=== PATIENT | male | born 1985 | race Caucasian/White ===

== ENCOUNTER 2019-12-17 11:21 | Outpatient (REF) | payer MEDICARE, SELFPAY ==
[2019-12-17 13:45] LABS: Glucose Urine UA NEG (NEG); Leukocyte Esterase Urine NEG (NEG); Nitrite Urine NEG (NEG); Urine Blood TRACE (NEG); Urine Ketones NEG (NEG); Urine Protein NEG (NEG-TRACE)
[2019-12-17 13:50] LABS: Appearance Urine CLEAR; Color Urine STRAW
[2019-12-17 14:15] LABS: RBC Urine 0-2 /HPF (0); WBC Urine 0 /HPF (0-4)
== END 2019-12-17 11:22 | disposition home or self-care (01) ==
LOC: HO.10HDL 11:21
PROVIDERS: Visit Provider Internal Medicine Medical Oncology
DX: R39.9 Unspecified symptoms and signs involving the genitourinary system (principal)
CPT/HCPCS: 81001; 87086

== ENCOUNTER 2020-04-19 11:28 | Outpatient (REF) | payer MEDICARE, MEDICAID, SELFPAY ==
[2020-04-19 14:40] LABS: MANUAL DIFF FLAG NO
[2020-04-19 14:45] LABS: Basophils Percent Auto 0.4 % (0-2); Eosinophils Absolute Auto 0.1 X10*3/uL (0.0-0.4); Eosinophils Percent Auto 0.9 % (0-4); Hematocrit 42.8 % (42-52); Hemoglobin 14.3 g/dl (14.0-18.0); Imm Gran Abs Auto 0.02 X10*3/uL (0.00-0.03); Imm Gran Pct Auto 0.3 % (0.0-0.4); Lymphocytes Absolute Auto 2.6 X10*3/uL (1.2-4.9); Lymphocytes Percent Auto 36.6 % (20-40); Mean Corpuscular HGB Conc 33.4 g/dl (31.0-36.0); Mean Corpuscular Volume 83.8 fL (80-98); Mean Platelet Volume 11.7 fL (9.4-12.4); Monocytes Absolute Auto 0.5 X10*3/uL (0.1-1.2); Monocytes Percent Auto 7.5 % (2-11); Neutrophils Absolute Auto 3.8 X10*3/uL (2.0-8.3); Neutrophils Percent Auto 54.3 % (45-73); Platelet Count 301 X10*3/uL (160-400); Red Blood Count 5.11 X10*6/uL (4.60-5.80); Red Cell Distribution Width 11.9 % (11.0-16.0); White Blood Count 7.1 X10*3/uL (4.8-10.8)
[2020-04-19 15:12] LABS: Alanine Aminotransferase 25 U/L (0-40); Albumin Level 4.8 g/dL (3.5-5.0); Alkaline Phosphatase 64 U/L (39-117); Anion Gap 16 (12-20); Aspartate Amino Transferase 20 U/L (5-37); Bilirubin Total 0.7 mg/dL (0.0-1.0); Blood Urea Nitrogen 11 mg/dL (9-16); Calcium 9.7 mg/dL (8.4-10.2); Carbon Dioxide 24 mmol/L (22-29); Chloride 102 mmol/L (96-108); Cholesterol 172 mg/dL; Estimated Glomerular Filt Rate > 60; Glucose Random 84 mg/dL (60-115); HDL Cholesterol 36 mg/dL; LDL Cholesterol Calculated 101 mg/dl; Potassium 4.3 mmol/L (3.3-5.1); Sodium 138 mmol/L (135-145); Total Protein 7.4 g/dL (6.5-8.0); Triglycerides 178 mg/dL
== END 2020-04-19 11:29 | disposition home or self-care (01) ==
LOC: HO.10HDL 11:28
PROVIDERS: Visit Provider Internal Medicine Medical Oncology
DX: F84.5 Asperger's syndrome (principal); E66.9 Obesity, unspecified; J45.909 Unspecified asthma, uncomplicated
CPT/HCPCS: 36415; 80053; 80061; 85025

== ENCOUNTER 2021-09-04 11:12 | Outpatient (REF) | payer MEDICARE, MEDICAID, SELFPAY ==
[2021-09-04 13:48] LABS: MANUAL DIFF FLAG NO
[2021-09-04 13:58] LABS: Basophils Percent Auto 0.2 % (0-2); Eosinophils Absolute Auto 0.1 X10*3/uL (0.0-0.4); Eosinophils Percent Auto 0.9 % (0-4); Hematocrit 40.8 % (42.0-52.0); Hemoglobin 13.5 g/dl (14.0-18.0); Imm Gran Abs Auto 0.03 X10*3/uL (0.00-0.03); Imm Gran Pct Auto 0.5 % (0.0-0.4); Lymphocytes Absolute Auto 2.2 X10*3/uL (1.2-4.9); Lymphocytes Percent Auto 38.9 % (20-40); Mean Corpuscular HGB Conc 33.1 g/dl (31.0-36.0); Mean Corpuscular Volume 84.5 fL (80.0-98.0); Mean Platelet Volume 11.3 fL (9.4-12.4); Monocytes Absolute Auto 0.6 X10*3/uL (0.1-1.2); Monocytes Percent Auto 9.9 % (2-11); Neutrophils Absolute Auto 2.8 x10*3/uL (2.0-8.3); Neutrophils Percent Auto 49.6 % (45-73); Platelet Count 262 X10*3/uL (160-400); Red Blood Count 4.83 X10*6/uL (4.60-5.80); Red Cell Distribution Width 12.3 % (11.0-16.0); White Blood Count 5.7 X10*3/uL (4.8-10.8)
[2021-09-04 14:11] LABS: Cholesterol 184 mg/dL; HDL Cholesterol 36 mg/dL; LDL Cholesterol Calculated 116 mg/dl; Triglycerides 164 mg/dL
== END 2021-09-04 11:13 | disposition home or self-care (01) ==
LOC: HO.10HDL 11:12
PROVIDERS: Visit Provider Internal Medicine Medical Oncology
DX: E55.9 Vitamin D deficiency, unspecified (principal)
CPT/HCPCS: 36415; 80061; 85025

== ENCOUNTER 2023-10-08 08:58 | Outpatient (REF) | payer MEDICARE, MEDICAID, SELFPAY ==
--- NOTE | ~2023-10-08 | XR_ITS ---
EXAMINATION: XR FOOT, LEFT CLINICAL INFORMATION: Left foot pain COMPARISON: None available. TECHNIQUE: AP, lateral, and oblique views of the left foot. FINDINGS: The toes are upgoing. Calcaneal spurring. Mild chronic appearing deformity medial aspect of the fifth distal metatarsal. No fracture or dislocation. XR/XR foot LT min 3V IMPRESSION: No acute bony pathology.
== END 2023-10-08 08:59 | disposition home or self-care (01) ==
LOC: HO.XRAY 08:58
PROVIDERS: PCP Internal Medicine Medical Oncology; Visit Provider Internal Medicine Medical Oncology
DX: M79.672 Pain in left foot (principal)
CPT/HCPCS: 73630

== ENCOUNTER 2024-03-10 08:54 | Outpatient (REF) | payer MEDICARE, MEDICAID, SELFPAY ==
[2024-03-10 09:18] LABS: MANUAL DIFF FLAG NO
--- OUTSIDE RECORDS SUMMARY | 2024-03-10 09:26 | XMS_ITS ---
Author Organization Abhijit Gilomre III, MD Address [address] [place] [address] Care Team Providers Care Commanding Officer Motorized Squad Name Role Phone Abhijit Gilmore Primary Care Provider REASON FOR VISIT PT 1 Social History Sex Assigned At : Social History Observation Description Sex Assigned At Male Encounters Encounter Location Date Provider Diagnosis Abhijit Gilmore III, MD [address] [place] [address] [place] [address] 02/28/2024 Abhijit Gilmore Plan Of Treatment Next Appt Details Provider Name:Abhijit Gilmore, 03/13/2024 10:00:00 AM, [address] [place] [address] [place], [address], Provider Name:Abhijit Gilmore, 04/23/2024 11:00:00 AM, [address] [facility] [place], [address], Provider Name:Abhijit Gilmore, 06/23/2024 02:30:00 PM, [address] [facility] [place], [address], Progress Notes * Jadiel BRYANT JrDOB:[birth year] (38 yo M)Acc No.[id number]:02/28/2024 Patient:?BRYANT, Jadiel morrison :1985???Age:38 Y???Sex:Male Address:[address] [place] [address] * true * Date:? Generated for Janice brown/Wild/Addissmitting on:?03/10/2024 09:26 AM EST
--- OUTSIDE RECORDS SUMMARY | 2024-03-10 09:26 | XMS_ITS ---
Author Organization Abhijit Gilmore III, MD Address [address] [place] [address] [place] [address] Care Team Providers Care Cleaner Housekeeping Name Role Phone Abhijit Gilmore Primary Care Provider [phone] Allergies Allergen (clinical drug ingredient) Drug/Non Drug Allergy documented on EMR Reaction Allergy Type Onset Date Status Penicillin Unknown Drug Allergy Active REASON FOR VISIT Daytime somnolence, Chronic fatigue, History of asthma, Obesity, Enuresis Medications Medication SIG (Take, Route, Fr equency, Duration) Notes Start Date End Date Status clonazePAM 0.5 MG 1 tablet Orally Once a day Active Social History Tobacco Use: Social History Observation Description Date Details (start date - stop date) Never Smoker NA - NA Sex Assigned At : Social History Observation Description Sex Assigned At Male Tobacco Use/Smoking Question Answer Notes Patient is a nonsmoker Additional Findings: Tobacco Non-User Aggressive non-smoker Problems Problem Type SNOMED Code ICD Code Onset Dates Problem Status W/U Status Risk Notes Problem Fatigue (81638966) Fatigue (R53.83) Active confirmed He reports daytime fatigue and somnolence and says he has difficulty sleeping. He says he has been told he snores excessively. I have ordered a sleep study to see if he has sleepp apnea. Vital Signs Height 67 in 02/28/2024 Weight 251 lbs 02/28/2024 BMI 39.31 kg/m2 02/28/2024 Encounters Encounter Location Date Provider Diagnosis Abhijit Gilmore III, MD [address] [place] [address] [address] [place], [place] [address] 02/28/2024 Abhijit Gilmore Obesity E66.9 ; Fatigue R53.83 ; Asperger syndrome F84.5 ; Asthma J45.909 ; Unspecified tinnitus H93.19 and Enuresis R32 Assessments Encounter Date Diagnosis (ICD Code) Assessment Notes Treatment Notes Treatment Clinical Notes 02/28/2024 Obesity (ICD-10 - E66.9) His weight has been stable at 251 pounds. His body mass index is 39.3. We discussed his weight and diet today. We reviewed his weight loss strategy and made a plan to lose weight at a rate of 1 pound per week. Follow-up visit was arranged. I have begun to discuss GLP-1 drugs with him. 02/28/2024 Fatigue (ICD-10 - R53.83) He reports daytime fatigue and somnolence and says he has difficulty sleeping. He says he has been told he snores excessively. I have ordered a sleep study to see if he has sleepp apnea. 02/28/2024 Asperger syndrome (ICD-10 - F84.5) He is functioning well and no change in his regimen as necessary. He was continued on his medications. He continues to complete all of the activities of daily living without impairment. 02/28/2024 Asthma (ICD-10 - J45.909) He had no wheezing today and was comfortable breathing room air.Once he has set of wheezing. 02/28/2024 Unspecified tinnitus (ICD-10 - H93.19) The tinnitus has resolved. 02/28/2024 Enuresis (ICD-10 - R32) He has no history of this in the past. I referred him to urology for evaluation. Plan Of Treatment Medication Medication Name Sig Start Date Stop Date Notes clonazePAM 0.5 MG 1 tablet Orally Once a day Pending Test Test Name Order Date PROFILE, FASTING (COMPREHENSIVE METABOLI C) 02/28/2024 PSA, TOTAL 02/28/2024 SED RATE (ESR) 02/28/2024 CBC WITH AUTO DIFF 02/28/2024 Lipid Panel 02/28/2024 Next Appt Details Follow Up: 2 Weeks, Reason: OV Provider Name:Abhijit Gilmore, 03/13/2024 10:00:00 AM, [address] [facility] [place], [place], [address], Provider Name:Abhijit Chawlarne, 04/23/2024 11:00:00 AM, [address] [facility] [place], [place], [address], Provider Name:Abhijit Gilmore, 06/23/2024 02:30:00 PM, [address] [facility] [place], [place], [address], Progress Notes * Jadiel BRYANT JrDOB:[birth year] (38 yo M)Acc No.[id number]:02/28/2024 Patient:?Jadiel BRYANT Provider:?Abhijit Gilmore MD :1985???Age:38 Y???Sex:Male David e:02/28/2024 Address:[address] [place] [address] Subjective: * Chief Complaints: * ???Daytime somnolenceChronic fatigueHistory of asthmaObesityEnuresis * HPI: ???:?Telehealth?Location of provider rendering services:?{...} [address] [facility] [address] ?Location of patient:?address listed in demographics for today's visit ?Patient identification confirmed using:?Name, ?Telehealth method:?Telephone only. Patient not visible to care provider. ?Consent:?Patient verbally consented to treatment, Patient verbally consented to billing insurance company, Patient informed of any privacy concerns related to method of visit ?Total time spent with patient (mins)?15 ?This telehealth visit took place over 15 minutes with the patient at home and me in my office.? He gave consent for billing. The patient, a 38-year-old male, has been experiencing fatigue and a general feeling of being unwell. He reports feeling excessively tired during the day, to the point where he struggles to keep his eyes open. Despite getting adequate sleep at night, he feels as though he can't get enough rest. He also mentions a problem with urinary leakage, for which he is awaiting a consultation with a urologist. The patient denies having a fever or a sore throat. He has been consuming herbal tea at night, which he believes boosts his immunity. The patient is unsure of the cause of his symptoms, suggesting it might be due to the fatigue of everything. He is currently on clonazepam, half a tablet twice a day, as prescribed by his medication provider, Dr. Aiden Jolley from [facility]. I suggested he redduce the dose of clonazepam for week and then report back to me and Dr. Jolley.? Blood work was ordered.? I have ordered a sleep study to see if he has sleep apnea. * ROS:?General/Constitutional:?pain?only normal aches and pains.?Chills?denies.?Fatigue?admits.?Denies?Fever,?denies.?ENT:?Decreased hearing?denies.?Denies?Sore throat.?Respiratory:?Cough?denies.?Cardiovascular:?Chest pain with exertion?denies.?Dyspnea on exertion?denies.?Shortness of breath?denies.?Gastrointestinal:?Constipation?occasional.?Decreased appetite?denies.?Diarrhea?denies.?Heartburn?denies.?Nausea?denies.?Rectal bleeding?denies.?Vomiting?denies.?Hematology:?bruising?denies.?petechiae?denies.?Swollen glands?none have been noted.?Genitourinary:?Frequent urination?Complains of enuresis.?Musculoskeletal:?Muscle aches?denies.?Painful joints?denies.?Sciatica?denies.?Weakness?denies.?Skin:?Itching?denies.?Rash?denies.?Skin lesion(s)?denies.?Neurologic:?Difficulty speaking?denies.?Dizziness?denies.?Headache?denies.?Low back pain?denies.?Psychiatric:?Depressed mood?which is mild.? * Medical History:? * Surgical History:?Colonoscop y, Endoscopy at [facility] [id number] tooth extracted 2013No history * Hospitalization/Major Diagno stic Procedure:?No history * Family History:?Father: nisa e 64 yrs, Hypertension, hyperlipidemia, obesity, BPH, emphysema, atrial fibrillation.?Mother: alive 61 yrs, Diabetes mellitus, depression, hyperlipidemia, obesity, asthma, and hearing loss.?Siblings: alive, crohns disease.?Maternal Grand Mother: colon cancer.?Maternal aunt: alive, colon cancer.?Maternal Grand Father: diagnosed with DM.?1 brother(s) , 1 sister(s) - healthy. .? His brother, Chalino, has Crohn's disease. His sister Makayla has a bipolar disorder. He has no children and is unmarried. He has a personal history of Asperger's syndrome. He is not aware of any other family history of mental illness, substance use disorder or injection. Prostate cancer. * Social History:?Tobacco Use:?Tobacco Use/Smoking?Patient is a?nonsmoker ?Additional Findings: Tobacco Non-User?Aggressive non-smoker ???He is disabled from Aspercreme syndrome. He is unemployed, single and has no children. He gives no history of any toxic exposures. He neither drinks nor smokes. 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 He also mentioned that he has been trying to manage his weight by reducing his food portions. * Medications:?TakingclonazePA M 0.5 MG Tablet 1 tablet Orally Once a day Medication List reviewed and reconciled with the patientTaking clonazePAM 0.5 MG Tablet 1 tablet Orally Once a day Medication List reviewed and reconciled with the patient * Allergies:?Penicillinno[Van rgies Verified] Objective: * Vitals:?Ht: 67, Wt: 251, BMI :39.31, Ht-cm: 170.18, Wt-k.85. Assessment: * Assessment: 1.?Obesity - E66.9 (Primary) ???Notes :His weight has been stable at 251 pounds.? His body mass index is 39.3.? We discussed his weight and diet today.? We reviewed his weight loss strategy and made a plan to lose weight at a rate of 1 pound per week.? Follow-up visit was arranged.? I have begun to discuss GLP-1 drugs with him.???2.?Fatigue - R53.83???Notes :He reports daytime fatigue and somnolence and says he has difficulty sleeping.? He says he has been told he snores excessively.? I have ordered a sleep study to see if he has sleepp apnea.???3.?Asperger syndrome - F84.5???Notes :He is functioning well and no change in his regimen as necessary. He was continued on his medications. He continues to complete all of the activities of daily living without impairment.???4.?Asthma - J45.909???Notes :He had no wheezing today and was comfortable breathing room air.Once he has set of wheezing.???5.?Unspecified tinnitus - H93.19???Notes :The tinnitus has resolved.???6.?Enuresis - R32???Notes :He has no history of this in the past. I referred him to urology for evaluation.??? Plan: * Treatment: 2.?Fatigue?LAB: PROFILE, FASTING (COMPREHENSIVE METABOLIC) ?LAB: PSA, TOTAL ?LAB: SED RATE (ESR) ?LAB: CBC WITH AUTO DIFF ?LAB: Lipid Panel 3.?Others? Continue clonazePAM Tablet, 0.5 MG, 1 tablet, Orally, Once a day.?? * Procedure Codes:?37512 PHONE E/M BY MARGE 11-20 MIN * Preventive Medicine:? ??Counseling:?Care goal follow-up plan:?Counseling for abnormal BMI given?Yes ?Above Normal BMI Follow-up?Dietary management education, guidance, and counseling, Dietary needs education, Exercise promotion: strength training, Exercise promotion: stretching, Feeding regime, Giving encouragement to exercise, Lifestyle education regarding diet, Nutrition / feeding management, Nutrition therapy, Prescribed activity/exercise education, Prescribed diet education, Prescribed dietary intake, Special diet education, Weight monitoring , Intervention, Order not done: Medical or Other reason not done * Follow Up:?2 Weeks (Reason: OV) * Images: * Sign off status: Completed true * Provider:?Abhijit Gilmore MD Date:?04/2024 Generated for Janice brown/Wild/eTransmitting on:?03/10/2024 09:26 AM EST History and Physical Notes * HPI (History of Present Illness) Category Sub-Category Detail Notes Telehealth Location of [facility] services:: {...} [address] [place] [id number] Location of patient:: address listed in demographics for today's visit Patient identification confirmed using:: Name, Telehealth method:: Telephone only. Radha ent not visible to care provider. Consent:: Patient verbally c onsented to treatment, Patient verbally consented to billing insurance company, Patient informed of any privacy concerns related to method of visit Total time spent with patient (mins): 15
--- OUTSIDE RECORDS SUMMARY | 2024-03-10 09:27 | XMS_ITS ---
Author Organization Abhijit Gilmore III, MD Address [address] [place] [address] Care Team Providers Care Fisher Diver Net Name Role Phone Abhijit Gilmore Primary Care Provider Allergies Allergen (clinical drug ingredient) Drug/Non Drug Allergy documented on EMR Reaction Allergy Type Onset Date Status Penicillin Unknown Drug Allergy Active REASON FOR VISIT Asperger's syndrome, Obesity, Tinnitus, Asthma Medications Medication SIG (Take, Route, Fr equency, [...] nonsmoker Additional Findings: Tobacco Non-User Aggressive non-smoker Vital Signs Temperature 97.7 degrees Fahrenheit 01/22/20 24 Blood pressure systolic 133 mm Hg 01/22/20 24 Blood pressure diastolic 86 mm Hg 024 Heart Rate 90 /min 01/22/2024 Height 67 in 01/22/2024 Weight 251 lbs 01/22/2024 BMI 39.31 kg/m2 01/22/2024 Encounters Encounter Location Date Provider Diagnosis Abhijit Gilmore III, MD [address] [place] [address] [place] [address] 01/22/2024 Abhijit Gilmore Obesity (BMI 30.0-34.9) E66.9 ; Asthma J45.909 ; Asperger syndrome F84.5 and Irritable bowel syndrome K58.9 Assessments Encounter Date Diagnosis (ICD Code) Assessment Notes Treatment Notes Treatment Clinical Notes 01/22/2024 Obesity (BMI 30.0-34.9) (ICD-10 - E66.9) His weigght has been stable at 251 pounds with a body mass index of 39.3. We have discussed weight reduction strategies at length. I recommended weight loss at a rate of one half of a pound per week. 01/22/2024 Asthma (ICD-10 - J45.909) He had no wheezing today and was comfortable breathing room air. 01/22/2024 Asperger syndrome (ICD-10 - F84.5) He is functioning well and no change in his regimen as necessary. He was continued on his medications. He continues to complete all of the activities of daily living without impairment. 01/22/2024 Irritable bowel syndrome (ICD-10 - K58.9) It is likely the right lower quadrant pain was from the orbital bowel syndrome. Examination today was normal and a recent CT scan of the abdomen showed no abnormalities. Plan Of Treatment Medication Medication Name Sig Start Date Stop Date Notes clonazePAM 0.5 MG 1 tablet Orally Once a day Pending Test Test Name Order Date PROFILE, FASTING (COMPREHENSIVE METABOLI C) 01/22/2024 PSA, TOTAL 01/22/2024 CBC WITH AUTO DIFF 01/22/2024 Lipid Panel 01/22/2024 Next Appt Details Follow Up: 3 M, In three mon ths, Reason: OV, To do some blood work Provider Name:Abhijit Gilmore, 03/13/2024 10:00:00 AM, [address] [place] [address] [address], [place], [address], Provider Name:Abhijit Gilmore, 04/23/2024 11:00:00 AM, [address] [place] [address] [address], [place], [address], Provider Name:Abhijit Gilmore, 06/23/2024 02:30:00 PM, [address] [place] [address] [address], [place], [address], Progress Notes * BRYANTJadiel KNIGHT JrDOB:[birth year] (38 yo M)Acc No.[id number]:01/22/2024 Progress Notes Patient:?BRYANTJadiel KNIGHT Provider:?Abhijit Gilmore MD :1985???Age:38 Y???Sex:Male David e:01/22/2024 Address:[address] [place] [address] Subjective: * Chief Complaints: * ???Asperger's syndromeObesit yTinnitusAsthma * HPI: ???COVID-19 Screening:?Questions?Have you experienced fever, chills, cough, sore throat, shortness of breath, difficulty breathing, muscle aches, loss of taste or smell??No ?Have you been exposed to the virus within the last 10 days??No ?Have you travelled internationally in the last 10 days??No ?Have you been exposed to COVID-19 in the past??Yes ???:?The patient, a 38-year-old male, reported experiencing episodes of difficulty breathing, particularly at night. These episodes are characterized by a sensation of being unable to inhale properly, which typically lasts until the patient sits upright and opens a window for fresh air. The patient noted that these episodes often occur when the environment is stuffy or after consuming a heavy meal before bedtime. Accompanying these episodes is the presence of acid reflux, which the patient described as the body's natural response to clear the perceived blockage. The patient also mentioned experiencing occasional pain in the lower abdominal region.He has had no attacks of asthma per se.? His pulmonary examination today was unremarkable.? He seems to be doing well.? Current therapy was continued without change.? Close follow up was initiated. * ROS:?General/Constitutional:?pain?only normal aches and pains.?Chills?denies.?Fatigue?admits.?Fever?denies.?ENT:?Decreased hearing?mild.?Respiratory:?Cough?denies.?Cardiovascular:?Chest pain with exertion?denies.?Dyspnea on exertion?denies.?Shortness of breath?Occasional gasping for breath at night which quickly resolves.?Gastrointestinal:?Constipation?occasional.?Decreased appetite?denies.?Diarrhea?denies.?Heartburn?denies.?Nausea?denies.?Rectal bleeding?denies.?Vomiting?denies.?Hematology:?bruising?denies.?petechiae?denies.?Swollen glands?none have been noted.?Genitourinary:?Frequent urination?denies.?Musculoskeletal:?Muscle aches?denies.?Painful joints?denies.?Sciatica?denies.?Weakness?denies.?Skin:?Itching?denies.?Rash?denies.?Skin lesion(s)?denies.?Neurologic:?Difficulty speaking?denies.?Dizziness?denies.?Headache?denies.?Low back pain?denies.?Psychiatric:?Depressed mood?denies.? * Medical History:? * Surgical History:?Colonoscop y, Endoscopy at [facility] [id number] tooth extracted 2013No history * Hospitalization/Major Diagno stic Procedure:?No history * Family History:?Father: aliv e 64 yrs, Hypertension, hyperlipidemia, obesity, BPH, [...] * Vitals:?Ht: 67, Wt: 251, BMI :39.31, BP: 133/86, HR: 90, Temp: 97.7, Ht-cm: 170.18, Wt-k.85. * Examination: ???General Examination: ?GENERAL APPEARANCE:?pleasant, well nourished, well developed, in no acute distress, calm and relaxed, obese, man.?HEAD:?atraumatic, normocephalic.?EYES:?eomi, perrla, anicteric, conjugate.?EARS:?normal.?NOSE:?septum intact.?ORAL CAVITY:?normal, unremarkable.?NECK/THYROID:?no jugular venous distention, no carotid bruit, thyroid normal.?LYMPH NODES:?no enlarged lymph nodes,spleen normal.?SKIN:?no suspicious lesions, anicteric, Numerous patches of eczema.?HEART:?no clicks, gallops, murmurs, or rubs, regular rhythm, S1, S2 normal, no s3, or vascular bruits.?LUNGS:?clear to auscultation .?BREASTS:??no masses palpable bilaterally.?ABDOMEN:?bowel sounds normal, no ascites, no organomegaly, no mass, centripital obesity.?RECTAL EXAM:?not examined.?MUSCULOSKELETAL:?extremities unremarkable, no clubbing, cyanosis or edema.?PERIPHERAL PULSES:?normal.?NEUROLOGIC:?alert and oriented, cranial nerves 2-12 grossly intact, deep tendon reflexes 2+ symmetrical, motor strength normal upper and lower extremities, sensory exam intact.?PSYCH:?alert, oriented.? Assessment: * Assessment: 1.?Obesity (BMI 30.0-34.9) - E66.9 (Primary)???Notes :His weigght has been stable at 251 pounds with a body mass index of 39.3.? We have discussed weight reduction strategies at length.? I recommended weight loss at a rate of one half of a pound per week.???2.?Asthma - J45.909???Notes :He had no wheezing today and was comfortable breathing room air.???3.?Asperger syndrome - F84.5???Notes :He is functioning well and no change in his regimen as necessary. He was continued on his medications. He continues to complete all of the activities of daily living without impairment.???4.?Irritable bowel syndrome - K58.9???Notes :It is likely the right lower quadrant pain was from the orbital bowel syndrome. Examination today was normal and a recent CT scan of the abdomen showed no abnormalities.??? Plan: * Treatment: 2.?Others? Continue clonazePAM Tablet, 0.5 MG, 1 tablet, Orally, Once a day.?? * Procedure Codes:? * Preventive Medicine:? ??Counseling:?Care goal follow-up plan:?Counseling [...] or Other reason not done * Follow Up:?3 M, In three mon s (Reason: OV, To do some blood work) * Images: * Sign off status: Completed true * Provider:?Abhijit Gilmore MD Date:?12/27 Generated for Printi ng/Fashivanig/eTransmitting on:?03/10/2024 09:26 AM EST History and Physical Notes * HPI (History of Present Illness) Category Sub-Category Detail Notes COVID-19 Screening Questions Have you had any new onset fever, chills, cough, congestion, sore throat, shortness of breath, muscle aches?: No Have you been exposed to the virus withi n the last 10 days?: No Have you travelled internationally in e last 10 days?: No Have you been exposed to COVID-19 in the past?: Yes Examination Category Sub-Category Detail Notes General Examination GENERAL APPEARANCE: pleasant , well nourished, well developed, in no acute distress, calm and relaxed, obese, man HEAD: atraumatic, normocep halic EYES: eomi, perrla, anicte mattie, conjugate EARS: normal NOSE: septum intact NECK/THYROID: no jugular venous di stention, no carotid bruit, thyroid normal HEART: no clicks, gallops, murmurs, or rubs, regular rhythm, S1, S2 normal, no s3, or vascular bruits LUNGS: clear to auscultatio n ABDOMEN: bowel sounds normal, no ascites, no organomegaly, no mass, centripital obesity NEUROLOGIC: alert and oriented, cranial nerves 2-12 grossly intact, deep tendon reflexes 2+ symmetrical, motor strength normal upper and lower extremities, sensory exam intact SKIN: no suspicious lesion s, anicteric, Numerous patches of eczema PERIPHERAL PULSES: normal BREASTS: no masses palpable b ilaterally MUSCULOSKELETAL: extremities unremark able, no clubbing, cyanosis or edema LYMPH NODES: no enlarged lymph no bibi,spleen normal RECTAL EXAM: not examined PSYCH: alert, oriented ORAL CAVITY: normal, unremarkable
--- OUTSIDE RECORDS SUMMARY | 2024-03-10 09:27 | XMS_ITS | Patient Health Record ---
Author Organization Abhijit Gilmore III, MD Address [address] [place] [address] [place] [address] Care Team Providers Care Weapons Specialist Name Role Phone Abhijit Gilmore Primary Care Provider [phone] Allergies Allergen (clinical drug ingredient) Drug/Non Drug Allergy documented on EMR Reaction Allergy Type Onset Date Status Penicillin Unknown Drug Allergy Active Results Component Value Reference Range Notes XR foot LT min 3V Reviewed date:10/13/2023 06:43:09 AM Interpretation: Performing Lab: Notes/Report: [address] [address] XRay Report Signed Patient: Jadiel Bryant MR#: [id number] 1542 : 1985 Acct:[id number] Age/Sex: 37 / M ADM Date: 10/08/23 Loc: [facility] Attending Dr: Abhijit Gilmore MD Ordering Physician: Abhijit Gilmore MD Date of Service: 10/08/23 Procedure(s): XR foot LT min 3V Accession Number(s): [id number] cc: Abhijit Gilmore MD EXAMINATION: XR FOOT, LEFT CLINICAL INFORMATION: Left foot pain COMPARISON: None available. TECHNIQUE: AP, lateral, and oblique views of the left foot. FINDINGS: The toes are upgoing. Calcaneal spurring. Mild chronic appearing deformity medial aspect of the fifth distal metatarsal. No fracture or dislocation. XR/XR foot LT min 3V IMPRESSION: No acute bony pathology. 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 TECHNIQUE: AP, lateral, and obl ique views of the left foot. FINDINGS: The toes are upgoing . Calcaneal spurring. Mild chronic appearing deformity medial asp ect of the fifth distal metatarsal. No fracture or dislocation. X R/XR foot LT min 3V IMPRESSION: No acute bony pathology. 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: Reason For Referral Reason Consult and Treat Dysuria for 2 weeks Diagnosis 1 Dysuria (R30.0) Diagnosis 2 Enuresis (R32) Referral Organization Abhijit Gilmore III, MD Referring Provider First Name Abhijit Referring Provider Last Name Deirdre Referring Provider Speciality Internal M edicine Referred Provider [facility] er, Urology Referred Provider Specialty Urology General Notes Doris Laughlin 12/01 11:08:38 AM > referral faxed with telephone encounter Referral Priority Routine Referral Appointment Date 03/19/2024 Medications Medication SIG (Take, Route, Fr equency, Duration) Notes Start Date End Date Status clonazePAM 0.5 MG 1 tablet Orally Once a day Active Immunizations Vaccine Route Administration Date Status Comme nts Influenza no Preserv 3 and > IM Intramuscular 12/12/2017 Administered Influenza, quad IM Intramuscular 02/02/2021 Administered Social History Tobacco Use: Social History Observation Description Date Details (start date - stop date) Never Smoker NA - NA Sex Assigned At : Social History Observation Description Sex Assigned At Male Tobacco Use/Smoking Question Answer Notes Patient is a nonsmoker Additional Findings: Tobacco Non-User Aggressive non-smoker Alcohol Screen Question Answer Notes Did you have a drink containing alcohol in the p ast year? No Points 0 Interpretation Negative Problems Problem Type SNOMED Code ICD Code Onset Dates Problem Status W/U Status Risk Notes Problem 011206098 Obesity (E66.9) Active confirmed His weight has been stable at 251 pounds. His body mass index is 39.3. We discussed his weight and diet today. We reviewed his weight loss strategy and made a plan to lose weight at a rate of 1 pound per week. Follow-up visit was arranged. I have begun to discuss GLP-1 drugs with him. Problem 510720985 Asthma (J45.909) Active confirmed He had no wheezing today and was comfortable breathing room air.Once he has set of wheezing. Problem Fatigue (41274583) Fatigue (R53.83) Active confirmed He reports daytime fatigue and somnolence and says he has difficulty sleeping. He says he has been told he snores excessively. I have ordered a sleep study to see if he has sleepp apnea. Problem 700204939541054 Obesity (BMI 30.0-34.9) (E66.9) Active confirmed His weigght has been stable at 251 pounds with a body mass index of 39.3. We have discussed weight reduction strategies at length. I recommended weight loss at a rate of one half of a pound per week. Problem 21741748 Irritable bowel syndrome (K58.9) Active confirmed It is likely the right lower quadrant pain was from the orbital bowel syndrome. Examination today was normal and a recent CT scan of the abdomen showed no abnormalities . Problem 87672598 Penicillin allergy (Z88.0) Active confirmed Problem 10650965 Asperger syndrome (F84.5) Active confirmed He is functioning well and no change in his regimen as necessary. He was continued on his medications. He continues to complete all of the activities of daily living without impairment. Problem 92268550 Unspecified tinnitus (H93.19) Active confirmed The tinnitus has resolved. Problem 99504997 Unspecified eustachian tube disorder (H69.90) Active confirmed He has had no difficulty with hearing lately. His free of any symptoms at this time. Problem 956547394 History of tympanostomy tube placement (Z96.22) Active confirmed He had tubes inserted when he was a child. The discomfort is persistent although the infection has mostly resolved. He was referred back to ENT. Problem Enuresis (07510590) Enuresis (R32) Active confirmed He has no history of this in the past. I referred him to urology for evaluation. Vital Signs Heart Rate 90 /min 01/22/2024 Temperature 97.7 degrees Fahrenheit 01/22/2024 Blood pressure diastolic 86 mm Hg 01/22/2024 Height 67 in 02/28/2024 Blood pressure systolic 133 mm Hg 01/22/2024 Weight 251 lbs 02/28/2024 BMI 39.31 kg/m2 02/28/2024 Encounters Encounter Location Date Provider Diagnosis Abhijit Gilmore III, MD [address] [place] [address] [place] [address] 06/18/2023 Abhijit Gilmore Obesity (BMI 30.0-34 .9) E66.9 ; Asthma J45.909 ; Asperger syndrome F84.5 ; Irritable bowel syndrome K58.9 and Ureterolithiasis N20.1 Abhijit Gilmore III, MD [address] [place] [address] [place] [address] 10/03/2023 Abhijit Gilmore Obesity (BMI 30.0-34 .9) E66.9 and Left foot pain M79.672 Abhijit Gilmore III, MD [address] [place] [address] [place] [address] 10/11/2023 Abhijit Gilmore Pain in left foot M7 9.672 ; Asperger syndrome F84.5 ; Asthma J45.909 ; Unspecified tinnitus H93.19 ; Ureterolithiasis N20.1 and Obesity (BMI 30.0-34.9) E66.9 Abhijit Gilmore III, MD [address] [place] [address] [place] [address] 12/11/2023 Abhijit Gilmore Enuresis R32 ; Obesi ty (BMI 30.0-34.9) E66.9 ; Asthma J45.909 ; Asperger syndrome F84.5 and Irritable bowel syndrome K58.9 Abhijit Gilmore III, MD [address] [place] [address] [place] [address] 01/22/2024 Abhijit Gilmore Obesity (BMI 30.0-34 .9) E66.9 ; Asthma J45.909 ; Asperger syndrome F84.5 and Irritable bowel syndrome K58.9 Abhijit Gilmore III, MD [address] [place] [address] [place] [address] 02/28/2024 Abhijit Gilmore Obesity E66.9 ; Fati riki R53.83 ; Asperger syndrome F84.5 ; Asthma J45.909 ; Unspecified tinnitus H93.19 and Enuresis R32 Abhijit Gilmore III, MD [address] [place] [address] [place] [address] 08/09/2023 Abhijit Gilmore III, MD [address] [place] [address] [place] [address] 12/02/2023 Abhijit Gilmore UTI symptoms R39.9 Abhijit Gilmore III, MD [address] [place] [address] [place] [address] 12/26/2023 Abhijit Gilmore III, MD [address] [place] [address] [place] [address] 02/28/2024 Abhijit Gilmore Assessments Encounter Date Diagnosis (ICD Code) Assessment Notes Treat ment Notes Treatment Clinical Notes 06/18/2023 Asthma (ICD-10 - J45.909) He had no wheezing today and was comfortable breathing room air. 06/18/2023 Obesity (BMI 30.0-34.9) (ICD-10 - E66.9) He has lost4 pounds and was encouraged to continue to do so. His body mass index is now 39. His nutrition seems good. 10/03/2023 Obesity (BMI 30.0-34.9) (ICD-10 - E66.9) A current weight is not available. They will be obtained when he comes to the office again in the near future.. His body mass index is now 39. His nutrition seems good. 10/03/2023 Left foot pain (ICD- 10 - M79.672) It is likely that this discomfort is Planter fasciitis. He was given an appointment to come to the office to be examined. A trial of ibuprofen has been recommended. 10/11/2023 Pain in left foot (ICD-10 - M79.672) He will see podiatry and explore the possibility of repair and shoe padding etc. 10/11/2023 Asperger syndrome (ICD-10 - F84.5) He is functioning well and no change in his regimen as necessary. He was continued on his medications. He continues to complete all of the activities of daily living without impairment. 12/11/2023 Obesity (BMI 30.0-34.9) (ICD-10 - E66.9) His weight is stable at 251 pounds. His body mass index is 39. Have discussed the wisdom of weight loss and diet and nutrition with him today. We made a plan daily and avoiding concentrated sweets. 12/11/2023 Enuresis (ICD-10 - R32) He has no history of this in the past. I referred him to urology for evaluation. 01/22/2024 Asthma (ICD-10 - J45.909) He had no wheezing today and was comfortable breathing room air. 01/22/2024 Obesity (BMI 30.0-34.9) (ICD-10 - E66.9) His weigght has been stable at 251 pounds with a body mass index of 39.3. We have discussed weight reduction strategies at length. I recommended weight loss at a rate of one half of a pound per week. 02/28/2024 Obesity (ICD-10 - E66.9) His weight [...] to see if he has sleepp apnea. 12/02/2023 UTI symptoms (ICD-10 - R39.9) 06/18/2023 Asperger syndrome (ICD-10 - F84.5) He is functioning well and no change in his regimen as necessary. He was continued on his medications. He continues to complete all of the activities of daily living without impairment. 10/11/2023 Asthma (ICD-10 - J45.909) He had no wheezing today and was comfortable breathing room air. 12/11/2023 Asthma (ICD-10 - J45.909) He had no wheezing today and was comfortable breathing room air. 01/22/2024 Asperger syndrome (ICD-10 - F84.5) He is functioning well and no change in his regimen as necessary. He was continued on his medications. He continues to complete all of the activities of daily living without impairment. 02/28/2024 Asperger syndrome (ICD-10 - F84.5) He is functioning well and no change in his regimen as necessary. He was continued on his medications. He continues to complete all of the activities of daily living without impairment. 06/18/2023 Irritable bowel syndrome (ICD-10 - K58.9) It is likely the right lower quadrant pain was from the orbital bowel syndrome. Examination today was normal and a recent CT scan of the abdomen showed no abnormalities. 10/11/2023 Unspecified tinnitus (ICD-10 - H93.19) The tinnitus has resolved. 12/11/2023 Asperger syndrome (ICD-10 - F84.5) He is [...] scan of the abdomen showed no abnormalities. 02/28/2024 Asthma (ICD-10 - J45.909) He had no wheezing today and was comfortable breathing room air.Once he has set of wheezing. 06/18/2023 Ureterolithiasis (ICD-10 - N20.1) He may have passed a kidney stone judging by his symptoms but he has no renal colic today and his urine has been clear. Observation without treatment will continue. He was advised to stay hydrated. 10/11/2023 Ureterolithiasis (ICD-10 - N20.1) He may have passed a kidney stone judging by his symptoms but he has no renal colic today and his urine has been clear. Observation without treatment will continue. He was advised to stay hydrated. 12/11/2023 Irritable bowel syndrome (ICD-10 - K58.9) It is likely the right lower quadrant pain was from the orbital bowel syndrome. Examination today was normal and a recent CT scan of the abdomen showed no abnormalities. 02/28/2024 Unspecified tinnitus (ICD-10 - H93.19) The tinnitus has resolved. 10/11/2023 Obesity (BMI 30.0-34.9) (ICD-10 - E66.9) A current weight is not available. They will be obtained when he comes to the office again in the near future.. His body mass index is now 39. His nutrition seems good. 02/28/2024 Enuresis (ICD-10 - R32) He has no history of this in the past. I referred him to urology for evaluation. Plan Of Treatment Pending Test Test Name Order Date PROFILE, FASTING (COMPREHENSIVE METABOLI C) 09/04/2021 PROFILE, FASTING (COMPREHENSIVE METABOLI C) 02/28/2024 PROFILE, FASTING (COMPREHENSIVE METABOLI C) 03/13/2019 PROFILE, FASTING (COMPREHENSIVE METABOLI C) 01/22/2024 PROFILE, FASTING (COMPREHENSIVE METABOLI C) 04/10/2018 PROFILE, RANDOM (COMPREHENSIVE METABOLIC ) 02/03/2020 LIPID PANEL 09/04/2021 LIPID PANEL 03/13/2019 LIPID PANEL 02/03/2020 LIPID PANEL 04/10/2018 PSA, TOTAL 02/28/2024 PSA, TOTAL 01/22/2024 CBC w DIFF 04/10/2018 CBC w DIFF 09/04/2021 CBC w DIFF 03/13/2019 CBC w DIFF 02/03/2020 SED RATE (ESR) 02/28/2024 SED RATE (ESR) 03/13/2019 URINALYSIS (UA) 12/17/2019 URINALYSIS (UA) 12/02/2023 URINALYSIS (UA) 09/30/2017 URINE CULTURE 12/17/2019 URINE CULTURE 09/30/2017 CBC WITH AUTO DIFF 02/28/2024 CBC WITH AUTO DIFF 01/22/2024 Lipid Panel 02/28/2024 Lipid Panel 01/22/2024 Urine Culture 12/02/2023 Next Appt Details Provider Name:Abhijit Gilmore, 03/13/2024 10:00:00 AM, [address] [facility] [address], [place], [address], Provider Name:Abhijit Gilmore, 04/23/2024 11:00:00 AM, [address] [facility] [address], [place], [address], Provider Name:Abhijit Gilmore, 06/23/2024 02:30:00 PM, [address] [facility] [address] [place], [address], Insurance Providers Payer Name Payer Address Payer Phone Subscriber Number Group Number Insured Name Patient Relationship to Insured Coverage Start Date Coverage End Date MEDICARE [facility] [address] [place] [address] [id number] Jadiel Mcdowell Self - patient is the insured MEDICAID [address] [place] [id number] Jadiel Mcdowell Self - patient is the insured Medical (General) History Medical History History ICD Code Irritable bowel syndrome 564.1 asthma Asperger's syndrome elevated LDL allergic to penicillin Morbid obesity Enuresis Surgical History Surgery Date(Month/Year) No history wisdom tooth extracted 2013 Colonoscopy, Endoscopy at [facility] 2014-12-03 Hospitalization History Reason Date(Month/Year) No history
[2024-03-10 09:38] LABS: Basophils Percent Auto 0.3 % (0-2); Eosinophils Absolute Auto 0.1 X10*3/uL (0.0-0.4); Eosinophils Percent Auto 1.4 % (0-4); Hematocrit 41.3 % (42.0-52.0); Hemoglobin 14.3 g/dl (14.0-18.0); Imm Gran Abs Auto 0.03 X10*3/uL (0.00-0.03); Imm Gran Pct Auto 0.5 % (0.0-0.4); Lymphocytes Absolute Auto 2.6 X10*3/uL (1.2-4.9); Lymphocytes Percent Auto 40.5 % (20-40); Mean Corpuscular HGB Conc 34.6 g/dl (31.0-36.0); Mean Corpuscular Hemoglobin 27.7 pg (27.0-33.0); Mean Corpuscular Volume 79.9 fL (80.0-98.0); Mean Platelet Volume 10.4 fL (9.4-12.4); Monocytes Absolute Auto 0.6 X10*3/uL (0.1-1.2); Neutrophils Percent Auto 48.3 % (45-73); Platelet Count 295 X10*3/uL (160-400); Red Blood Count 5.17 X10*6/uL (4.60-5.80); Red Cell Distribution Width 11.9 % (11.0-16.0); White Blood Count 6.3 X10*3/uL (4.8-10.8)
[2024-03-10 10:21] LABS: Erythrocyte Sedimentation Rate 4 MM/HR (0-15)
[2024-03-10 10:41] LABS: Alanine Aminotransferase 53 U/L (0-40); Albumin Level 4.3 g/dL (3.5-5.0); Anion Gap 15 (12-20); Aspartate Amino Transferase 34 U/L (5-37); Bilirubin Total 0.9 mg/dL (0.0-1.0); Blood Urea Nitrogen 9 mg/dL (9-16); Calcium 9.7 mg/dL (8.4-10.2); Carbon Dioxide 24 mmol/L (22-29); Chloride 105 mmol/L (96-108); Cholesterol 192 mg/dL (<200); Estimated Glomerular Filt Rate > 60; Glucose Fasting 94 mg/dL (60-99); HDL Cholesterol 35 mg/dL (>40); LDL Cholesterol Calculated 121 mg/dL (<100); Potassium 4.1 mmol/L (3.3-5.1); Sodium 140 mmol/L (135-145); Total Protein 7.2 g/dL (6.5-8.0); Triglycerides 182 mg/dL (<150)
[2024-03-10 11:09] LABS: Alkaline Phosphatase 67 U/L (39-117)
== END 2024-03-10 08:55 | disposition home or self-care (01) ==
LOC: HO.LAB 08:54
PROVIDERS: PCP Internal Medicine Medical Oncology; Visit Provider Internal Medicine Medical Oncology
DX: E66.9 Obesity, unspecified (principal); N40.0 Benign prostatic hyperplasia without lower urinary tract symptoms; R53.83 Other fatigue; Z12.5 Encounter for screening for malignant neoplasm of prostate
CPT/HCPCS: 36415; 80053; 80061; 84153; 85025; 85652

== ENCOUNTER 2024-03-19 10:14 | Outpatient (AMB) | payer MEDICARE, MEDICAID, SELFPAY ==
--- NOTE | 2024-03-19 10:25 | A.OFFVIS_ITS ---
Intake Visit Reasons: dysuria Intake Note: New patient Presents for Dysuria/Leakage Any Urology Medication: None Antibiotic Allergies: Penicillins Blood Thinners: None PVR: 33ml Boom Master Required: No Accompanied by: Self / Same As Patient Allergies Penicillins Allergy (Mild, Verified 03/19/24 10:38) Unknown Medication List - Last Reconciled 03/19/24 by Dedrick Bland MD clonazepam 0.5 mg PO DAILY doxycycline hyclate 100 mg PO BID nirmatrelvir-ritonavir 300 mg (150 mg x 2)-100 mg (Paxlovid) 3 ea PO PER PKG DIR 5 days HPI Comments Details: Jadiel is a 38-year-old male, history of Asperger's syndrome, obesity, here for evaluation due to complaints of dysuria and urinary leakage at night, states symptoms have been for about 4 months. He states that he uses cranberry juice and this helps with the urinary discomfort. He denies urinary leakage during the daytime. He states he drinks about a gallon of water daily including 2 cups of tea, herbal tea before bedtime. He also has water at his bed and we will drink water few wakes up during the night because he feels dry. I have discussed cutting back on water intake in stopping fluid intake by 19:00. He states he is not sexually active. Urinalysis is negative for blood or leukocytes. Will trial doxycycline b.i.d. for nonspecific urethritis. Check renal/bladder ultrasound. [facility] Medical History (Updated 03/19/24 @ 11:07 by Dedrick Bland MD) Dysuria Morbid obesity Elevated LDL cholesterol level Aspergers' syndrome IBS (irritable bowel syndrome) Asthma Surgical History History of colonoscopy Family History Father HTN (hypertension) Hyperlipidemia Obesity BPH (benign prostatic hyperplasia) Emphysema lung Chronic a-fib Mother Diabetes mellitus Depression Hyperlipidemia Obesity Asthma Review of Systems Const All systems reviewed & are unremarkable except as noted in HPI and below Reports no additional complaints Eyes Reports no additional complaints ENT Reports no additional complaints Card Reports no additional complaints Resp Reports no additional complaints GI Reports no additional complaints Reports as per HPI Musc Reports no additional complaints Skin/Breast Reports system reviewed and no additional complaints, except as documented Neuro Reports no additional complaints Psych Reports no additional complaints Endo Reports no additional complaints Dav/Lymph Reports no additional complaints Aller/Immun Reports no additional complaints Physical Exam Const General: healthy appearing, no acute distress and well developed Orientation/consciousness: patient oriented x3 HEENT Head: Yes normocephalic and Yes atraumatic Eyes Conjunctivae: conjunctivae normal Neck Neck: Yes normal visual inspection Chest Chest palpation & inspection: normal inspection of the chest Resp Effort & Inspection: normal respiratory effort Cardio Rate: regular rate GI Inspection: Yes normal to inspection Palpation (GI): Soft to palpation Neuro General: patient oriented x3 Psych Appearance: grossly normal Affect: normal affect Office Procedures Post Void Residual Post Residual Void Post Void Residual (PVR): 33 [id number] Void Residual by ultrasound Results AMB Urinalysis, Automated UA Leukoctes 0 Genevieve/uL Last Edit by Jazmin Carbone [facility] on 03/19/24 10:51 UA Nitrite Negative Last Edit by Jazmin Carbone [facility] on 03/19/24 10:51 UA Urobilinogen 0.2 mg/dL Last Edit by Jazmin Carbone [facility] on 03/19/24 10:5 1 UA Protein 0 mg/dL Last Edit by Jazmin Carbone [facility] on 03/19/24 10:51 UA pH 6.0 Last Edit by Jazmin Carbone [facility] on 03/19/24 10:51 UA Blood 0 Jah/uL Last Edit by Jazmin Carbone [facility] on 03/19/24 10:51 UA Specific [place] 1.030 Last Edit by Jazmin Carbone [facility] on 03/19/24 10: 51 UA Ketone Last Edit by Jazmin Carbone [facility] on 03/19/24 10:51 UA Bilirubin 0 mg/dL Last Edit by Jazmin Carbone [facility] on 03/19/24 10:51 UA Glucose 0 mg/dL Last Edit by Jazmin Carbone [facility] on 03/19/24 10:51 Assessment & Plan Assessment & Plan (1) Dysuria: Code(s): R30.0 - Dysuria Category: Medical (2) Urinary frequency: Code(s): R35.0 - Frequency of micturition Category: Medical (3) Urethritis, nonspecific: Code(s): N34.1 - Nonspecific urethritis Category: Medical (4) Enureses: Code(s): R32 - Unspecified urinary incontinence Category: Medical Plan Doxycycline bid for 10 days. US retroperitoneal fu in 10 weeks Orders: Orders AMB Urinalysis Automated Today Z13.9 - Encounter for screening, unspecified US retroperitoneal comp Today R30.0 - Dysuria, R35.0 - Frequency of micturition AMB Post Void Residual by ultrasound Today R30.0 - Dysuria Medications: New doxycycline hyclate 100 mg PO BID 20 tabs 0RF Patient Instructions: The patient had an opportunity to ask questions regarding treatment plan. The patient expressed understanding and agreement with the above treatment plan. The patient is aware they should contact our office by phone for worsening of their current condition or the appearance of new symptoms. Compliance is encouraged with any medications and followup testing that is ordered. It is a privilege to be allowed the opportunity to participate in the urologic care of your patient. If you have any questions or concerns regarding treatment for the above conditions please do not hesitate to contact me. The office telephone contact is [phone]. This note is constructed in part using voice recognition software. While every effort has been made to ensure accuracy county auditor errors may have been included. Yours sincerely, Dedrick Bland MD Coding Level of Care Code New Pt Level 4 (55169) Diagnoses Dysuria R30.0 Urinary frequency R35.0 Urethritis, nonspecific N34.1 Enureses R32 CPT Codes Post Residual Void - PVR CPT Code: 25912-Rqfg Void Residual by ultrasound ([id number])
== END 2024-03-19 11:07 | disposition home or self-care (01) ==
LOC: HO.HUSH 10:14
PROVIDERS: PCP Internal Medicine Medical Oncology; Visit Provider Urology
DX: R30.0 Dysuria (principal); R35.0 Frequency of micturition; N34.1 Nonspecific urethritis; R32 Unspecified urinary incontinence; Z13.9 Encounter for screening, unspecified
CPT/HCPCS: 99204

== ENCOUNTER → 2024-03-19 10:14 | Outpatient (BNVA) | payer MEDICARE, MEDICAID, SELFPAY | PROVIDERS: PCP Internal Medicine Medical Oncology; Visit Provider Urology | DX: R30.0 Dysuria (principal); R35.0 Frequency of micturition; R32 Unspecified urinary incontinence; N34.1 Nonspecific urethritis | CPT/HCPCS: 51798; 81003; 99202 ==

== ENCOUNTER 2024-05-15 09:52 | Outpatient (REF) | payer MEDICARE, MEDICAID, SELFPAY ==
--- NOTE | ~2024-05-15 | US_ITS ---
EXAMINATION: US RETROPERITONEUM HISTORY: R35.0 - Frequency of micturition TECHNIQUE: Real-time grayscale ultrasound imaging of the kidneys was performed and images were reviewed. COMPARISON: There are no prior studies for comparison. FINDINGS: Right kidney: The right kidney measures 12.9 x 5.8 x 5.8 cm. Renal parenchymal echotexture and thickness are normal. There is a 1.5 x 1.3 x 1.2 cm cyst at the lower pole. There is no hydronephrosis or renal calculi. Left Kidney: The left kidney measures 12.5 x 6.1 x 5.2 cm. Renal parenchymal echotexture and thickness are normal. There are no masses. There is no hydronephrosis or renal calculi. There is debris in the urinary bladder.. Bilateral ureteral jets are identified. Before voiding, the urinary bladder measured 9.5 x 15.5 x 8.0 cm, for an estimated volume of 617 mL. After voiding, the urinary bladder measured 2.2 x 1.1 x 2.7 cm, for an estimated volume of 3 mL. The collapsed urinary bladder demonstrates wall thickening measuring up to 10 mm. The prostate measures 3.5 x 3.7 x 4.0 cm. US/US retroperitoneal comp IMPRESSION: 1. Debris in the urinary bladder. The collapsed urinary bladder demonstrates wall thickening. 2. 1.5 cm right lower pole renal cyst. Electronically signed by: Abhijit James MD 05/15/2024 11:01 AM EDT
--- OUTSIDE RECORDS SUMMARY | 2024-05-15 11:32 | XMS_ITS ---
Author Organization Abhijit Gilmore III, MD Address [address] [place] [address] [place] [address] Care Team Providers Care Mixing [employer] Dispensing Supervisor Name Role Phone Abhijit Gilmore Primary Care Provider [phone] Allergies Allergen (clinical drug ingredient) Drug/Non Drug Allergy documented on EMR Reaction Allergy Type Onset Date Status Penicillin Unknown Drug Allergy Active REASON FOR VISIT enuresis, declines flu shot, Tinnitus, Obesity Medications Medication SIG (Take, Route, Fr equency, [...] Problem Status W/U Status Risk Notes Problem [id number] Nocturia (R35.1) Active confirmed He will be observed to see if the antibiotic reduce his nocturia. Problem 126696004 Obesity (E66.9) Active confirmed His weight has been stable at 251 pounds. His body mass index is 39. We discussed his weight and diet today. We reviewed his weight loss strategy and made a plan to lose weight at a rate of 1 pound per week. Follow-up visit was arranged. I have begun to discuss GLP-1 drugs with him. Vital Signs Temperature 97.6 degrees Fahrenheit 03/27/19 25 Blood pressure systolic 132 mm Hg 03/27/19 25 Blood pressure diastolic 86 mm Hg 025 Heart Rate 84 /min 03/27/2024 Height 67 in 03/27/2024 Weight 254 lbs 03/27/2024 BMI 39.78 kg/m2 03/27/2024 Encounters Encounter Location Date Provider Diagnosis Abhijit Gilmore III, MD [address] [place] [address] [place] [address] 03/27/2024 Abhijit Gilmore Obesity E66.9 ; Nocturia R35.1 ; Asthma J45.909 and Asperger syndrome F84.5 Assessments Encounter Date Diagnosis (ICD Code) Assessment Notes Treatment Notes Treatment Clinical Notes 03/27/2024 Obesity (ICD-10 - E66.9) His weight has been stable at 251 pounds. His body mass index is 39.3. We discussed his weight and diet today. We reviewed his weight loss strategy and made a plan to lose weight at a rate of 1 pound per week. Follow-up visit was arranged. I have begun to discuss GLP-1 drugs with him. 03/27/2024 Nocturia (ICD-10 - R35.1) He will be observed to see if the antibiotic reduce his nocturia. 03/27/2024 Asthma (ICD-10 - J45.909) He had no wheezing today and was comfortable breathing room air.Once he has set of wheezing. 03/27/2024 Asperger syndrome (ICD-10 - F84.5) He is functioning well and no change in his regimen as necessary. He was continued on his medications. He continues to complete all of the activities of daily living without impairment. Plan Of Treatment Medication Medication Name Sig Start Date Stop Date Notes clonazePAM 0.5 MG 1 tablet Orally Once a day Next Appt Details Follow Up: As Scheduled, In a month, Reason: OV, Routine check-up Provider Name:Abhijit Gilmore, 06/23/2024 02:30:00 PM, [address] [place] [address] [place], [address], Progress Notes * Jadiel BRYANT JrDOB:[birth year] (38 yo M)Acc No.[id number]:03/27/2024 Progress Notes Patient:?Jadiel BRYANT Provider:?Abhijit Gilmore MD :1985???Age:38 Y???Sex:Male David e:03/27/2024 Address:[address] [place], [place] [id number] Subjective: * Chief Complaints: * ???EnuresisDeclines flu shot TinnitusObesity * HPI: ???COVID-19 Screening:?Questions?Have you had any new onset fever, chills, cough, congestion, sore throat, shortness of breath, muscle aches??No ???:?The patient, a 38-year-old male, presented with a possible bladder infection or overactive bladder. He has been taking antibiotics daily with dinner, even though it's not required. He prefers to take his medication with food as he believes it's better absorbed. He also mentioned taking anxiety medication. The patient has been considering getting a vasectomy and has been discussing it with his parents. He also mentioned having some occupational hazards due to his work in [employer].He had a urology consultation recently with Dr. Bland who put him on doxycycline for UTI. * ROS:?General/Constitutional:?pain?only normal aches and pains.?Chills?denies.?Fatigue?admits.?Fever?denies.?ENT:?Decreased hearing?denies.?Respiratory:?Cough?denies.?Cardiovascular:?Chest pain with exertion?denies.?Dyspnea on exertion?denies.?Shortness of breath?denies.?Gastrointestinal:?Constipation?occasional.?Decreased appetite?denies.?Diarrhea?denies.?Heartburn?denies.?Nausea?denies.?Rectal bleeding?denies.?Vomiting?denies.?Hematology:?bruising?denies.?petechiae?denies.?Swollen glands?none have been noted.?Genitourinary:?Frequent urination?once a night.?Musculoskeletal:?Muscle aches?denies.?Painful joints?denies.?Sciatica?denies.?Weakness?denies.?Skin:?Itching?denies.?Rash?denies.?Skin lesion(s)?denies.?Neurologic:?Difficulty speaking?denies.?Dizziness?denies.?Headache?denies.?Low back pain?denies.?Psychiatric:?Depressed mood?denies.? * Medical History:? * Surgical History:?Colonoscop y, Endoscopy at [facility] [id number] tooth extracted 2013No history * Hospitalization/Major Diagno stic Procedure:?No history * Family History:?Father: nisa white 64 yrs, Hypertension, hyperlipidemia, obesity, BPH, emphysema, [...] portions. * Medications:?TakingclonazePA M 0.5 MG Tablet 1/2 tablet Orally Once a day Medication List reviewed and reconciled with the patientTaking clonazePAM 0.5 MG Tablet 1/2 tablet Orally Once a day Medication List reviewed and reconciled with the patient * Allergies:?Penicillinno[Van rgies Verified] Objective: * Vitals:?Ht: 67, Wt: 254, BMI :39.78, BP: 132/86, HR: 84, Temp: 97.6, Ht-cm: 170.18, Wt-k.21. * ???Past Orders: ???Lab:Erythrocyte Sedimenta tion Rate (Order Date - 03/10/2024) (Collection Date & Time - 03/10/2024 09:13 AM) ? Value Reference Range ?Erythrocyte Sedimentation Rate 4 0-15 - MM/HR ???Lab:Comprehensive [place]. P sotero Fast (Order Date - 03/10/2024) (Collection Date & Time - 03/10/2024 09:13 AM) ? Value Reference Range ?Sodium 140 135-145 - mmo l/L ?Bilirubin Total 0.9 0.0- 1.0 - mg/dL ?Aspartate Amino Transferase 34 5-37 - U/L ?Alanine Aminotransferase 53 H 0-40 - U/L ?Total Protein 7.2 6.5-8. 0 - g/dL ?Albumin Level 4.3 3.5-5. 0 - g/dL ?Alkaline Phosphatase 67 39-117 - U/L ?Potassium 4.1 3.3-5.1 - mmol/L ?Chloride 105 96-108 - mm ol/L ?Carbon Dioxide 24 22-29 - mmol/L ?Anion Gap 15 12-20 - ?Blood Urea Nitrogen 9 9-16 - mg/dL ?Creatinine 0.77 0.5-1.4 - mg/dL ?Estimated Glomerular Filt Rate > 60 - ?Glucose Fasting 94 60-9 9 - mg/dL ?Calcium 9.7 8.4-10.2 - m g/dL Lab:Lipid Panel * Collection Date 03/10/2024 09/04/2021 04/19/2020 Collection Time 09:13 AM 11:17 AM 11:28 AM Order Date 03/10/2024 09/04/2021 04/19/2020 Triglycerides 182?H (Ref Range: <150 mg/dL) 164 (Ref Range: mg/dL) 178 (Ref Range: mg/dL) Cholesterol 192 (Ref Range: <200 mg/dL) 184 (Ref Range: mg/dL) 172 (Ref Range: mg/dL) LDL Cholesterol Calculated 121?H (Ref Range: <100 mg/dL) 116 (Ref Range: mg/dl) 101 (Ref Range: mg/dl) HDL Cholesterol 35?L (Ref Range: >40 mg/dL) 36 (Ref Range: mg/dL) 36 (Ref Range: mg/dL) ???Lab:Prostate Specific Antigen (Order Date - 03/10/2024) (Collection Date & Time - 03/10/2024 09:13 AM)?ValueReference Range?Prostate Specific Antigen0.50<0.05-4.0 - ng/mL * Lab:Complete Blood Count Aut o Diff * Collection Date 03/10/2024 09/04/2021 04/19/2020 Collection Time 09:13 AM 11:17 AM 11:28 AM Order Date 03/10/2024 09/04/2021 04/19/2020 White Blood Count 6.3 (Ref Range: 4.8-10.8 X10*3/uL) 5.7 (Ref Range: 4.8-10.8 X10*3/uL) 7.1 (Ref Range: 4.8-10.8 X10*3/uL) Red Blood Count 5.17 (Ref Range: 4.60-5.80 X10*6/uL) 4.83 (Ref Range: 4.60-5.80 X10*6/uL) 5.11 (Ref Range: 4.60-5.80 X10*6/uL) Hemoglobin 14.3 (Ref Range: 14.0-18.0 g/dl) 13.5?L (Ref Range: 14.0-18.0 g/dl) 14.3 (Ref Range: 14.0-18.0 g/dl) Hematocrit 41.3?L (Ref Range: 42.0-52.0 %) 40.8?L (Ref Range: 42.0-52.0 %) 42.8 (Ref Range: 42-52 %) Mean Corpuscular Volume 79.9?L (Ref Range: 80.0-98.0 fL) 84.5 (Ref Range: 80.0-98.0 fL) 83.8 (Ref Range: 80-98 fL) Mean Corpuscular Hemoglobin 27.7 (Ref Range: 27.0-33.0 pg) 28.0 (Ref Range: 27.0-33.0 pg) 28.0 (Ref Range: 27.0-33.0 pg) Mean Corpuscular HGB Conc 34.6 (Ref Range: 31.0-36.0 g/dl) 33.1 (Ref Range: 31.0-36.0 g/dl) 33.4 (Ref Range: 31.0-36.0 g/dl) Red Cell Distribution Width 11.9 (Ref Range: 11.0-16.0 %) 12.3 (Ref Range: 11.0-16.0 %) 11.9 (Ref Range: 11.0-16.0 %) Platelet Count 295 (Ref Range: 160-400 X10*3/uL) 262 (Ref Range: 160-400 X10*3/uL) 301 (Ref Range: 160-400 X10*3/uL) Mean Platelet Volume 10.4 (Ref Range: 9.4-12.4 fL) 11.3 (Ref Range: 9.4-12.4 fL) 11.7 (Ref Range: 9.4-12.4 fL) Neutrophils Percent Auto 48.3 (Ref Range: 45-73 %) 49.6 (Ref Range: 45-73 %) 54.3 (Ref Range: 45-73 %) Imm Gran Pct Auto 0.5?H (Ref Range: 0.0-0.4 %) 0.5?H (Ref Range: 0.0-0.4 %) 0.3 (Ref Range: 0.0-0.4 %) Lymphocytes Percent Auto 40.5?H (Ref Range: 20-40 %) 38.9 (Ref Range: 20-40 %) 36.6 (Ref Range: 20-40 %) Monocytes Percent Auto 9.0 (Ref Range: 2-11 %) 9.9 (Ref Range: 2-11 %) 7.5 (Ref Range: 2-11 %) Eosinophils Percent Auto 1.4 (Ref Range: 0-4 %) 0.9 (Ref Range: 0-4 %) 0.9 (Ref Range: 0-4 %) Basophils Percent Auto 0.3 (Ref Range: 0-2 %) 0.2 (Ref Range: 0-2 %) 0.4 (Ref Range: 0-2 %) NRBC Pct Auto 0.0 (Ref Range: 0.0-0.2 /100WBC) 0.0 (Ref Range: 0.0-0.2 /100WBC) 0.0 (Ref Range: 0.0-0.2 /100WBC) Neutrophils Absolute Auto 3.0 (Ref Range: 2.0-8.3 x10*3/uL) 2.8 (Ref Range: 2.0-8.3 x10*3/uL) 3.8 (Ref Range: 2.0-8.3 X10*3/uL) Imm Gran Abs Auto 0.03 (Ref Range: 0.00-0.03 X10*3/uL) 0.03 (Ref Range: 0.00-0.03 X10*3/uL) 0.02 (Ref Range: 0.00-0.03 X10*3/uL) Lymphocytes Absolute Auto 2.6 (Ref Range: 1.2-4.9 X10*3/uL) 2.2 (Ref Range: 1.2-4.9 X10*3/uL) 2.6 (Ref Range: 1.2-4.9 X10*3/uL) Monocytes Absolute Auto 0.6 (Ref Range: 0.1-1.2 X10*3/uL) 0.6 (Ref Range: 0.1-1.2 X10*3/uL) 0.5 (Ref Range: 0.1-1.2 X10*3/uL) Eosinophils Absolute Auto 0.1 (Ref Range: 0.0-0.4 X10*3/uL) 0.1 (Ref Range: 0.0-0.4 X10*3/uL) 0.1 (Ref Range: 0.0-0.4 X10*3/uL) Basophils Absolute Auto 0.0 (Ref Range: 0.0-0.2 X10*3/uL) 0.0 (Ref Range: 0.0-0.2 X10*3/uL) 0.0 (Ref Range: 0.0-0.2 X10*3/uL) NRBC Abs Auto 0.000 (Ref Range: 0.0-0.012 X10*3/uL) 0.000 (Ref Range: 0.0-0.012 X10*3/uL) 0.000 (Ref Range: 0.0-0.012 X10*3/uL) * Examination: ???General Examination: ?GENERAL APPEARANCE:?pleasant, well nourished, well developed, in no acute distress, calm and relaxed, obese, man.?HEAD:?atraumatic, normocephalic.?EYES:?eomi, perrla, anicteric, conjugate.?EARS:?normal.?NOSE:?septum intact.?ORAL CAVITY:?normal, unremarkable.?NECK/THYROID:?no jugular venous distention, no carotid bruit, thyroid normal.?LYMPH NODES:?no enlarged lymph nodes,spleen normal.?SKIN:?no suspicious lesions, anicteric.?HEART:?no clicks, gallops, murmurs, or rubs, regular rhythm, [...] sensory exam intact.?PSYCH:?alert, oriented.? Assessment: * Assessment: 1.?Nocturia - R35.1 (Primary )???Notes :He will be observed to see if the antibiotic reduce his nocturia.???2.?Obesity - E66.9???Notes :His weight has been stable at 251 pounds. His body mass index is 39.3. We discussed his weight and diet today. We reviewed his weight loss strategy and made a plan to lose weight at a rate of 1 pound per week. Follow-up visit was arranged. I have begun to discuss GLP-1 drugs with him.???3.?Asthma - J45.909???Notes :He had no wheezing today and was comfortable breathing room air.Once he has set of wheezing.???4.?Asperger syndrome - F84.5???Notes :He is functioning well and no change in his regimen as necessary. He was continued on his medications. He continues to complete all of the activities of daily living without impairment.??? Plan: * Treatment: * Procedure Codes:? * Preventive Medicine:? ??Counseling:?Care [...] or Other reason not done * Follow Up:?As Scheduled, In a month (Reason: OV, Routine check-up) * Images: * Sign off status: Completed true * Provider:?Abhijit Gilmore MD Date:?02/27 Generated for Davidi kevin/iWld/eTransmitting on:?05/15/2024 11:31 AM EDT History and Physical Notes * HPI (History of Present Illness) Category Sub-Category Detail Notes COVID-19 Screening Questions Have you had any new onset fever, chills, cough, congestion, sore throat, shortness of breath, muscle aches?: No Examination Category Sub-Category Detail Notes General Examination [...] exam intact SKIN: no suspicious lesion s, anicteric PERIPHERAL PULSES: normal BREASTS: no masses palpable b ilaterally MUSCULOSKELETAL: extremities unremark able, no clubbing, cyanosis or edema LYMPH NODES: no enlarged lymph no bibi,spleen normal RECTAL EXAM: not examined PSYCH: alert, oriented ORAL CAVITY: normal, unremarkable
--- OUTSIDE RECORDS SUMMARY | 2024-05-15 11:32 | XMS_ITS | Patient Health Record ---
Author Organization Abhijit Gilmore III, MD Address [address] [place] [address] [place] [address] Care Team Providers Care Director Of Restaurant Operations Name Role Phone Abhijit Gilmore Primary Care Provider [phone] Allergies Allergen (clinical drug ingredient) Drug/Non Drug Allergy documented on EMR Reaction Allergy Type Onset Date Status Penicillin Unknown Drug Allergy Active Results Component Value Reference Range Notes XR foot LT min 3V Reviewed date:10/13/2023 06:43:09 AM Interpretation: Performing Lab: Notes/Report: [address] [address] XRay Report Signed Patient: Jadiel Bryant MR#: [id number] 1542 : 1985 Acct:[id number] Age/Sex: 37 / M ADM Date: 10/08/23 Loc: [facility] Attending Dr: Abhijit Gilmore MD Ordering Physician: Abhijit Gilmore MD Date of Service: 10/08/23 Procedure(s): XR foot LT min 3V Accession Number(s): [id number] cc: Abhijit Gilmore MD EXAMINATION: XR FOOT, LEFT CLINICAL INFORMATION: Left foot pain COMPARISON: None available. TECHNIQUE: AP, lateral, and oblique views of the left foot. FINDINGS: The toes are upgoing. Calcaneal spurring. Mild chronic appearing deformity medial aspect of the fifth distal metatarsal. No fracture or dislocation. XR/XR foot LT min 3V IMPRESSION: No acute bony pathology. Dictated By: Alyssa Venegas MD Signed By: <Electronically signed by Alyssa Venegas MD in OV> 10/08/23 1011 DD/ 0910 TD/TT: Caption Writer: [address] [address] XRay Report Signed Patient: Kashif Bryant MR#: [id number] 1542 : 1985 Acct:[id number] Age/Sex: 37 / M ADM Date: 10/08/23 Loc: [place] Attending Dr: Abhijit Gilmore MD Ordering Physician: Abhijit Gilmore MD Date of Service: 10/08/23 Procedure(s): XR alli t LT min 3V Accession Number(s): [id number] cc: Abhijit Gilmore MD EXAMINATION: XR FOOT, LEFT CLINICAL INFORMATION: Left foot pain COMPARISON: None available. TECHNIQUE: AP, lateral, and oblique views of the left foot. FINDINGS: The toes are upgoing . Calcaneal spurring. Mild chronic appearing deformity medial asp ect of the fifth distal metatarsal. No fracture or dislocation. XR/XR foot LT min 3V IMPRESSION: No acute bony pathology. Dictated By: Alyssa Venegas MD Signed By: <Electronically signed by Alyssa Venegas MD in OV> 10/08/23 1011 DD/ 0910 TD/TT: Caption Writer: Complete Blood Count Auto Di ff Reviewed date:03/12/2024 01:23:20 PM Interpretation: Performing Lab:[facility], [address] [place] [address] Notes/Report: White Blood Count 6.3 4.8-10.8 X10*3/uL Red Blood Count 5.17 4.60-5.80 X10*6/uL Hemoglobin 14.3 14.0-18.0 g/dl Hematocrit 41.3 42.0-52.0 % Mean Corpuscular Volume 79.9 80.0-98.0 fL Mean Corpuscular Hemoglobin 27.7 27.0-33.0 pg Mean Corpuscular HGB Conc 34.6 31.0-36.0 g/dl Red Cell Distribution Width 11.9 11.0-16.0 % Platelet Count 295 160-400 X10*3/uL Mean Platelet Volume 10.4 9.4-12.4 fL Neutrophils Percent Auto 48.3 45-73 % Imm Gran Pct Auto 0.5 0.0-0.4 % Lymphocytes Percent Auto 40.5 20-40 % Monocytes Percent Auto 9.0 2-11 % Eosinophils Percent Auto 1.4 0-4 % Basophils Percent Auto 0.3 0-2 % NRBC Pct Auto 0.0 0.0-0.2 /100WBC Neutrophils Absolute Auto 3.0 2.0-8.3 x10*3/u L Imm Gran Abs Auto 0.03 0.00-0.03 X10*3/uL Lymphocytes Absolute Auto 2.6 1.2-4.9 X10*3/u L Monocytes Absolute Auto 0.6 0.1-1.2 X10*3/uL Eosinophils Absolute Auto 0.1 0.0-0.4 X10*3/u L Basophils Absolute Auto 0.0 0.0-0.2 X10*3/uL NRBC Abs Auto 0.000 0.0-0.012 X10*3/uL Erythrocyte Sedimentation Ra te Reviewed date:03/12/2024 01:23:20 PM Interpretation: Performing Lab:[facility], [address] [place] [phone] Notes/Report: Erythrocyte Sedimentation Rate 4 0-15 MM/HR Patients with polycythemia and many hemoglobin abnormalities may have depressed sed rates whereas patients with anemia may have elevated sed rates. Comprehensive [place]. Panel Fa st Reviewed date:03/12/2024 01:23:20 PM Interpretation: Performing Lab:[facility], [address] [place] [address] Notes/Report: Sodium 140 135-145 mmol/L Potassium 4.1 3.3-5.1 mmol/L Chloride 105 96-108 mmol/L Carbon Dioxide 24 22-29 mmol/L Anion Gap 15 12-20 Blood Urea Nitrogen 9 9-16 mg/dL Creatinine 0.77 0.5-1.4 mg/dL Estimated Glomerular Filt Rate > 60 Chronic Kidney Disease: Estimated GFR < 60 mL/min/1.73m2 Severe Kidney Disease: Estimated GFR < 15 mL/min/1.73m2 Glucose Fasting 94 60-99 mg/dL Calcium 9.7 8.4-10.2 mg/dL Bilirubin Total 0.9 0.0-1.0 mg/dL Aspartate Amino Transferase 34 5-37 U/L Alanine Aminotransferase 53 0-40 U/L Total Protein 7.2 6.5-8.0 g/dL Albumin Level 4.3 3.5-5.0 g/dL Alkaline Phosphatase 67 39-117 U/L Lipid Panel Reviewed date:03/12/2024 01:23:20 PM Interpretation: Performing Lab:[facility], [address] [place] [address] Notes/Report: Triglycerides 182 <150 mg/dL Desirable Triglyceride: less than 150 mg/dL Borderline High Triglyceride 150-199 mg/dL High Triglyceride: 200-499 mg/dL Very High Triglyceride: greater than or equal to 5OO mg/dL Cholesterol 192 <200 mg/dL Desirable Cholesterol: less than 200 mg/dL Borderline High Cholesterol: 200-239 mg/dL High Cholesterol: greater than 239 mg/dL LDL Cholesterol Calculated 121 <100 mg/dL Desirable LDL: less than 100 mg/dL Near Optimal/Above Optimal LDL: 110-129 mg/dL Borderline High LDL: 130-159 mg/dL High LDL: 160-189 mg/dL Very High LDL: greater than or equal to 190 mg/dL HDL Cholesterol 35 >40 mg/dL Desirable HDL: greater than 40 mg/dL Note: This HDL assay may give artificially low results in patients with liver disease. Prostate Specific Antigen Reviewed date:03/12/2024 01:23:20 PM Interpretation: Performing Lab:[address] [address] Notes/Report: Prostate Specific Antigen 0.50 <0.05-4.0 ng/mL PSA methodology: Hernández Alinity i Chemiluminescent Microparticle Immunoassay (CMIA) US retroperitoneal comp (Not yet reviewed by provider) Interpretation: Performing Lab: Notes/Report: [address] [address] Ultrasound Report Signed Patient: Jadiel Bryant MR#: [id number] 1542 : 1985 Acct:[id number] Age/Sex: 38 / M ADM Date: 05/15/24 Loc: .[place] Attending Dr: Dedrick Bland MD Ordering Physician: Dedrick Bland MD Date of Service: 05/15/24 Procedure(s): US retroperitoneal comp Accession Number(s): [id number] cc: Dedrick Bland MD; Abhijit Gilmore MD EXAMINATION: US RETROPERITONEUM HISTORY: R35.0 - Frequency of micturition TECHNIQUE: Real-time grayscale ultrasound imaging of the kidneys was performed and images were reviewed. COMPARISON: There are no prior studies for comparison. FINDINGS: Right kidney: The right kidney measures 12.9 x 5.8 x 5.8 cm. Renal parenchymal echotexture and thickness are normal. There is a 1.5 x 1.3 x 1.2 cm cyst at the lower pole. There is no hydronephrosis or renal calculi. Left Kidney: The left kidney measures 12.5 x 6.1 x 5.2 cm. Renal parenchymal echotexture and thickness are normal. There are no masses. There is no hydronephrosis or renal calculi. There is debris in the urinary bladder.. Bilateral ureteral jets are identified. Before voiding, the urinary bladder measured 9.5 x 15.5 x 8.0 cm, for an estimated volume of 617 mL. After voiding, the urinary bladder measured 2.2 x 1.1 x 2.7 cm, for an estimated volume of 3 mL. The collapsed urinary bladder demonstrates wall thickening measuring up to 10 mm. The prostate measures 3.5 x 3.7 x 4.0 cm. US/US retroperitoneal comp IMPRESSION: 1. Debris in the urinary bladder. The collapsed urinary bladder demonstrates wall thickening. 2. 1.5 cm right lower pole renal cyst. Electronically signed by: Abhijit James MD 05/15/2024 11:01 AM EDT Dictated By: Abhijit James MD Signed By: <Electronically signed by Abhijit James MD in OV> 05/15/24 1101 DD/ 1030 TD/TT: 05/15/24 1037 Caption Writer: [place] [address] Ultrasound Report Signed Patient: Kashif Bryant MR#: [id number] 1542 : 1985 Acct:[id number] Age/Sex: 38 / M ADM Date: 05/15/24 Loc: HO.US Attending Dr: Dedrick Bland MD Ordering Physician: Dedrick Bland MD Date of Service: 05/15/24 Procedure(s): US retroperitoneal comp Accession Number(s): [id number] cc: Giovanny Bland MD; Abhijit Gilmore MD EXAMINATION: US RETROPERITONEUM HISTORY: R35.0 - Frequency of micturition TECHNIQUE: Real-time grayscale ultrasound imaging of the kidneys was performed and images were reviewed. COMPARISON: There ar e no prior studies for comparison. FINDINGS: Right kidney: The ri ght kidney measures 12.9 x 5.8 x 5.8 cm. Renal parenchymal echotext ure and thickness are normal. There is a 1.5 x 1.3 x 1.2 cm cyst at the lower pole. There is no hydronephrosis or renal calculi. Left Kidney: The lef t kidney measures 12.5 x 6.1 x 5.2 cm. Renal parenchymal echotext ure and thickness are normal. There are no masses. There is no hydronephrosis or renal calculi. There is debris in t he urinary bladder.. Bilateral ureteral jets are identified. Before voiding, the urinary bladder measured 9.5 x 15.5 x 8.0 cm, for an estimated volume of 617 mL. After voiding, the urinary bladder measured 2.2 x 1.1 x 2.7 cm, for an estimated volume of 3 mL. The collapsed urinar y bladder demonstrates wall thickening measuring up to 10 mm. The prosta te measures 3.5 x 3.7 x 4.0 cm. US/US retroperitoneal comp IMPRESSION: 1. Debris in the urinary bladder. The collapsed urinary bladder demonstrates wall thickening. 2. 1.5 cm right lowe r pole renal cyst. Electronically jayy d by: Abhijit James MD 05/15/2024 11:01 AM EDT RP Dictated By: Abhijit James MD Signed By: <Electronically signed by Abhijit James MD in OV> 05/15/24 1101 DD/ 1030 TD/TT: 05/15/24 1037 Caption Writer: Reason For Referral Reason Consult and Treat Dysuria for 2 weeks Diagnosis 1 Dysuria (R30.0) Diagnosis 2 Enuresis (R32) Referral Organization Abhijit Gilmore III, MD Referring Provider First Name Abhijit Referring Provider Last Name Deirdre Referring Provider Speciality Internal M edicine Referred Provider [facility] er, Urology Referred Provider Specialty Urology [...] Problem Status W/U Status Risk Notes Problem 330930814 Obesity (E66.9) Active confirmed His weight has been stable at 251 pounds. His body mass index is 39. We discussed his weight and diet today. We reviewed his weight loss strategy and made a plan to lose weight at a rate of 1 pound per week. Follow-up visit was arranged. I have begun to discuss GLP-1 drugs with him. Problem 258619410 Asthma (J45.909) Active confirmed He had no wheezing today and was comfortable breathing room air.Once he has set of wheezing. Problem 84390844 Irritable bowel syndrome (K58.9) Active confirmed It is likely the right lower quadrant pain was from the orbital bowel syndrome. Examination today was normal and a recent CT scan of the abdomen showed no abnormalities. Problem 417975757 Nocturia (R35.1) Active confirmed He will be observed to see if the antibiotic reduce his nocturia. Problem 56336244 Penicillin allergy (Z88.0) Active confirmed Problem 57271935 Asperger syndrome (F84.5) Active confirmed He is functioning well and no change in his regimen as necessary. He was continued on his medications. He continues to complete all of the activities of daily living without impairment. Problem 77392627 Unspecified tinnitus (H93.19) Active confirmed The tinnitus has resolved. Problem 73842704 Unspecified eustachian tube disorder (H69.90) Active confirmed He has had no difficulty with hearing lately. His free of any symptoms at this time. Problem 323298822 History of tympanostomy tube placement (Z96.22) Active confirmed He had tubes inserted when he was a child. The discomfort is persistent although the infection has mostly resolved. He was referred back to ENT. Problem 05056767 Seborrheic dermatitis (L21.9) Active confirmed He was offered topical and shampoo treatments for the seborrhea but he declined saying he did not wish to take prescription medications.I offered to refer him back to dermatology should he wish but he declined saying several he was a very minor nuisance to him and he did not require prescription medication. Did recommend Selsun Blue shampoo. Vital Signs Heart Rate 79 /min 04/23/2024 Temperature 97.9 degrees Fahrenheit 04/23/2024 Blood pressure diastolic 82 mm Hg 04/23/2024 Height 67 in 04/23/2024 Blood pressure systolic 138 mm Hg 04/23/2024 Weight 255 lbs 04/23/2024 BMI 39.93 kg/m2 04/23/2024 Encounters Encounter Location Date Provider Diagnosis Abhijit Gilmore III, MD [address] [place] [address] DR [place], [place] [address] 06/18/2023 Abhijit Gilmore Obesity (BMI 30.0-34 .9) E66.9 ; Asthma J45.909 ; Asperger syndrome F84.5 ; Irritable bowel syndrome K58.9 and Ureterolithiasis N20.1 Abhijit Gilmore III, MD [address] [place] [address] [place] [address] 10/03/2023 Abhijit Gilmore Obesity (BMI 30.0-34 .9) E66.9 and Left foot pain M79.672 Abhijit Gilmore III, MD [address] [place] [address] [place] [address] 10/11/2023 Abhijit Gilmore Pain in left foot M7 9.672 ; Asperger syndrome F84.5 ; Asthma J45.909 ; Unspecified tinnitus H93.19 ; Ureterolithiasis N20.1 and Obesity (BMI 30.0-34.9) E66.9 Abhijit Gilmore III, MD [address] [place] [address] [place] [address] 12/11/2023 Abhijit Gilmore Enuresis R32 ; Obesi ty (BMI 30.0-34.9) E66.9 ; Asthma J45.909 ; Asperger syndrome F84.5 and Irritable bowel syndrome K58.9 Abhijit Gilmore III, MD [address] [place] [address] [place] [address] 01/22/2024 Abhijit Gilmore Obesity (BMI 30.0-34 .9) E66.9 ; Asthma J45.909 ; Asperger syndrome F84.5 and Irritable bowel syndrome K58.9 Abhijit Gilmore III, MD [address] [place] [address] [place] [address] 02/28/2024 Abhijit Gilmore Obesity E66.9 ; Fati riki R53.83 ; Asperger syndrome F84.5 ; Asthma J45.909 ; Unspecified tinnitus H93.19 and Enuresis R32 Abhijit Gilmore III, MD [address] [place] [address] [place] [address] 03/13/2024 Abhijit Gilmore Obesity E66.9 ; Asth ma J45.909 ; Asperger syndrome F84.5 ; Obesity (BMI 30.0-34.9) E66.9 ; Irritable bowel syndrome K58.9 and Unspecified tinnitus H93.19 Abhijit Gilmore III, MD [address] [place] [address] [place] [address] 03/27/2024 Abhijit Gilmore Obesity E66.9 ; Noct uria R35.1 ; Asthma J45.909 and Asperger syndrome F84.5 Abhijit Gilmore III, MD [address] [facility] [place] [address] 04/23/2024 Abhijit Gilmore Seborrheic dermatiti s L21.9 ; Obesity E66.9 ; Asthma J45.909 and Asperger syndrome F84.5 Abhijit Gilmore III, MD [address] [facility] [place] [address] 08/09/2023 Abhijit Gilmore III, MD [address] [place] [address] [place] [address] 12/02/2023 Abhijit Gilmore UTI symptoms R39.9 Abhijit Gilmore III, MD [address] [place] [address] [place] [address] 12/26/2023 Abhijit Gilmore III, MD [address] [place] [address] [place] [address] 02/28/2024 Abhijit Gilmore Assessments Encounter Date Diagnosis [...] to see if he has sleepp apnea. 03/13/2024 Obesity (ICD-10 - E66.9) His weight has been stable at 251 pounds. His body mass index is 39.3. We discussed his weight and diet today. We reviewed his weight loss strategy and made a plan to lose weight at a rate of 1 pound per week. Follow-up visit was arranged. I have begun to discuss GLP-1 drugs with him. 03/13/2024 Asthma (ICD-10 - J45.909) He had no wheezing today and was comfortable breathing room air.Once he has set of wheezing. 03/27/2024 Obesity (ICD-10 - E66.9) His weight [...] see if the antibiotic reduce his nocturia. 04/23/2024 Obesity (ICD-10 - E66.9) His weight has been stable at 251 pounds. His body mass index is 39. We discussed his weight and diet today. We reviewed his weight loss strategy and made a plan to lose weight at a rate of 1 pound per week. Follow-up visit was arranged. I have begun to discuss GLP-1 drugs with him. 04/23/2024 Seborrheic dermatiti s (ICD-10 - L21.9) He was offered topical and shampoo treatments for the seborrhea but he declined saying he did not wish to take prescription medications.I offered to refer him back to dermatology should he wish but he declined saying several he was a very minor nuisance to him and he did not require prescription medication. Did recommend Selsun Blue shampoo. 12/02/2023 UTI symptoms (ICD-10 - R39.9) 06/18/2023 [...] the activities of daily living without impairment. 03/13/2024 Asperger syndrome (ICD-10 - F84.5) He is functioning well and no change in his regimen as necessary. He was continued on his medications. He continues to complete all of the activities of daily living without impairment. 03/27/2024 Asthma (ICD-10 - J45.909) He had no wheezing today and was comfortable breathing room air.Once he has set of wheezing. 04/23/2024 Asthma (ICD-10 - J45.909) He had no wheezing today and was comfortable breathing room air.Once he has set of wheezing. 06/18/2023 Irritable bowel syndrome (ICD-10 - K58.9) [...] room air.Once he has set of wheezing. 03/13/2024 Obesity (BMI 30.0-34.9) (ICD-10 - E66.9) His weigght has been stable at 251 pounds with a body mass index of 39.3. We have discussed weight reduction strategies at length. I recommended weight loss at a rate of one half of a pound per week. 03/27/2024 Asperger syndrome (ICD-10 - F84.5) He is functioning well and no change in his regimen as necessary. He was continued on his medications. He continues to complete all of the activities of daily living without impairment. 04/23/2024 Asperger syndrome (ICD-10 - F84.5) He is functioning well and no change in his regimen as necessary. He was continued on his medications. He continues to complete all of the activities of daily living without impairment. 06/18/2023 Ureterolithiasis (ICD-10 - N20.1) He may [...] (ICD-10 - H93.19) The tinnitus has resolved. 03/13/2024 Irritable bowel syndrome (ICD-10 - K58.9) It is likely the right lower quadrant pain was from the orbital bowel syndrome. Examination today was normal and a recent CT scan of the abdomen showed no abnormalities. 10/11/2023 Obesity (BMI 30.0-34.9) (ICD-10 - E66.9) A current weight is not available. They will be obtained when he comes to the office again in the near future.. His body mass index is now 39. His nutrition seems good. 02/28/2024 Enuresis (ICD-10 - R32) He has no history of this in the past. I referred him to urology for evaluation. 03/13/2024 Unspecified tinnitus (ICD-10 - H93.19) The tinnitus has resolved. Plan Of Treatment Pending Test Test Name Order Date PROFILE, FASTING (COMPREHENSIVE METABOLI C) 03/13/2019 PROFILE, FASTING (COMPREHENSIVE METABOLI C) 02/28/2024 PROFILE, FASTING (COMPREHENSIVE METABOLI C) 01/22/2024 PROFILE, FASTING (COMPREHENSIVE METABOLI C) 04/10/2018 PROFILE, FASTING (COMPREHENSIVE METABOLI C) 09/04/2021 PROFILE, RANDOM (COMPREHENSIVE METABOLIC ) 02/03/2020 LIPID PANEL 09/04/2021 LIPID PANEL 03/13/2019 LIPID PANEL 02/03/2020 LIPID PANEL 04/10/2018 PSA, TOTAL 02/28/2024 PSA, TOTAL 01/22/2024 CBC w DIFF 09/04/2021 CBC w DIFF 03/13/2019 CBC w DIFF 02/03/2020 CBC w DIFF 04/10/2018 SED RATE (ESR) 02/28/2024 SED RATE (ESR) 03/13/2019 URINALYSIS (UA) 12/02/2023 URINALYSIS (UA) 09/30/2017 URINALYSIS (UA) 12/17/2019 URINE CULTURE 12/17/2019 URINE CULTURE 09/30/2017 CBC WITH AUTO DIFF 02/28/2024 CBC WITH AUTO DIFF 01/22/2024 Lipid Panel 02/28/2024 Lipid Panel 01/22/2024 Urine Culture 12/02/2023 US retroperitoneal comp 05/15/2024 Next Appt Details Provider Name:Abhijit Gilmore, 06/23/2024 02:30:00 PM, [address] [place] [address] , [place] [address], [place], [address], Insurance Providers Payer Name Payer Address Payer Phone Subscriber Number Group Number Insured Name Patient Relationship to Insured Coverage Start Date Coverage End Date MEDICARE NGS [address] [facility] [address] [phone] [id number] Jadiel Mcdowell Self - patient is the insured MEDICAID [place] [address] [place] [id number] Jadiel Mcdowell Self - patient is the insured Medical (General) History Medical History History ICD Code Irritable bowel syndrome 564.1 asthma Asperger's syndrome elevated LDL allergic to penicillin Morbid obesity Enuresis Surgical History Surgery Date(Month/Year) No history wisdom tooth extracted 2013 Colonoscopy, Endoscopy at [facility] 2014-12-03 Hospitalization History Reason Date(Month/Year) No history
--- OUTSIDE RECORDS SUMMARY | 2024-05-15 11:32 | XMS_ITS ---
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 Phone Abhijit Gilmore Primary Care Provider Allergies Allergen (clinical drug ingredient) Drug/Non Drug Allergy documented on EMR Reaction Allergy Type Onset Date Status Penicillin Unknown Drug Allergy Active REASON FOR VISIT Asthma, Obesity, Anuresis Medications Medication SIG (Take, Route, Fr equency, [...] Tobacco Non-User Aggressive non-smoker Vital Signs Temperature 97.8 degrees Fahrenheit 03/13/19 25 Blood pressure systolic 121 mm Hg 03/13/19 25 Blood pressure diastolic 87 mm Hg 025 Heart Rate 85 /min 03/13/2024 Height 67 in 03/13/2024 Weight 252 lbs 03/13/2024 BMI 39.46 kg/m2 03/13/2024 Encounters Encounter Location Date Provider Diagnosis Abhijit Gilmore III, MD [address] [place] [address] [address] [place], [place] [address] 03/13/2024 Abhijit Gilmroe Obesity E66.9 ; Asth ma J45.909 ; Asperger syndrome F84.5 ; Obesity (BMI 30.0-34.9) E66.9 ; Irritable bowel syndrome K58.9 and Unspecified tinnitus H93.19 Assessments Encounter Date Diagnosis (ICD Code) Assessment Notes Treatment Notes Treatment Clinical Notes 03/13/2024 Obesity (ICD-10 - E66.9) His weight [...] air.Once he has set of wheezing. 03/13/2024 Asperger syndrome (ICD-10 - F84.5) He is functioning well and no change in his regimen as necessary. He was continued on his medications. He continues to complete all of the activities of daily living without impairment. 03/13/2024 Obesity (BMI 30.0-34.9) (ICD-10 - E66.9) His weigght has been stable at 251 pounds with a body mass index of 39.3. We have discussed weight reduction strategies at length. I recommended weight loss at a rate of one half of a pound per week. 03/13/2024 Irritable bowel syndrome (ICD-10 - K58.9) It is likely the right lower quadrant pain was from the orbital bowel syndrome. Examination today was normal and a recent CT scan of the abdomen showed no abnormalities. 03/13/2024 Unspecified tinnitus (ICD-10 - H93.19) The tinnitus has resolved. Plan Of Treatment Medication Medication Name Sig Start Date Stop Date Notes clonazePAM 0.5 MG 1 tablet Orally Once a day Next Appt Details Follow Up: 2 Weeks, In two w eeks, Reason: ov no tests, To monitor patient's condition and adjust treatment as necessary Provider Name:Abhijit Gilmore, 06/23/2024 02:30:00 PM, [address] [place] [address] [address], [place], [address], Progress Notes * Jadiel BRYANT JrDOB:[birth year] (38 yo M)Acc No.[id number]:03/13/2024 Progress Notes Patient:?Jadiel BRYANT Provider:?Abhijit Gilmore MD :1985???Age:38 Y???Sex:Male David e:03/13/2024 Address:[address] [place] [address] Subjective: * Chief Complaints: * ???AsthmaObesityAnuresis * HPI: ???COVID-19 Screening:?Questions?Have you had any new onset fever, chills, cough, congestion, sore throat, shortness of breath, muscle aches??No ???:?The patient, a 38-year-old male, has been experiencing fatigue for a couple of months. He reports not eating much and having difficulty sleeping. He also complains of joint, bone, and muscle pain, which he attributes to aging and the weather. His breathing is reportedly good. He has an upcoming appointment with a urologist due to issues with urinating at night. He also mentions occasional nosebleeds. The patient admits to feeling very depressed, largely due to family stressors. He wakes up gasping for air at night, which he believes is due to his weight.He continues to experience enuresis once or twice a week.? He has an appointment with urologist but has not yet been there.? We have discussed lifestyle modifications he could make to reduce nocturnal urinating.He says he is feeling depressed because of the winter and the long nights and his parents conflicted relationship.? He declined my offer of an antidepressant saying that his symptoms are very mild. * ROS:?General/Constitutional:?Admits?pain,?only normal aches and pains.?Chills?denies.?Fatigue?admits.?Fever?denies.?ENT:?Decreased hearing?denies.?Respiratory:?Cough?denies.?Cardiovascular:?Chest pain with exertion?denies.?Dyspnea on exertion?denies.?Shortness of breath?denies.?Gastrointestinal:?Constipation?occasional.?Decreased appetite?denies.?Diarrhea?denies.?Heartburn?denies.?Nausea?denies.?Rectal bleeding?denies.?Vomiting?denies.?Hematology:?bruising?denies.?petechiae?denies.?Swollen glands?none have been noted.?Genitourinary:?Frequent urination?denies.?Musculoskeletal:?Muscle aches?denies.?Painful joints?denies.?Sciatica?denies.?Weakness?denies.?Skin:?Itching?denies.?Rash?denies.?Skin lesion(s)?denies.?Neurologic:?Difficulty speaking?denies.?Dizziness?denies.?Headache?denies.?Low back pain?denies.?Psychiatric:?Depressed mood?which is mild.? * Medical History:? * Surgical History:?Colonoscop y, Endoscopy at [facility] [id number] tooth extracted 2013No history * Hospitalization/Major Diagno stic Procedure:?No history * Family History:?Father: alidanis e 64 yrs, Hypertension, hyperlipidemia, obesity, BPH, [...] rgies Verified] Objective: * Vitals:?Ht: 67, Wt: 252, BMI :39.46, BP: 121/87, HR: 85, Temp: 97.8, Ht-cm: 170.18, Wt-k.31. * ???Past Orders: ???Lab:Erythrocyte Sedimenta tion Rate (Order Date - 03/10/2024) (Collection Date & Time - 03/10/2024 09:13 AM) ? Value Reference Range ?Erythrocyte Sedimentation Rate 4 0-15 - MM/HR Lab:Complete Blood Count Aut o Diff * [...] 0.0-0.012 X10*3/uL) 0.000 (Ref Range: 0.0-0.012 X10*3/uL) ???Lab:Prostate Specific Antigen (Order Date - 03/10/2024) (Collection Date & Time - 03/10/2024 09:13 AM)?ValueReference Range?Prostate Specific Antigen0.50<0.05-4.0 - ng/mL * Lab:Lipid Panel * Collection Date 03/10/2024 09/04/2021 [...] (Ref Range: mg/dL) 36 (Ref Range: mg/dL) ???Lab:Comprehensive [place]. Panel Fast (Order Date - 03/10/2024) (Collection Date & Time - 03/10/2024 09:13 AM)?ValueReference Range?Srndfw764872- 145 - mmol/L?Bilirubin Total0.90.0-1.0 - mg/dL?Aspartate Amino Blikvcsdqpu685-63 - U/L?Alanine Iclwxfdbbptrbvgi75S9-83 - U/L ?Total Protein7.26.5-8.0 - g/dL?Albumin Level4.33.5-5.0 - g/dL ?Alkaline Erbtvcbflmx8074-314 - U/L?Potassium4.13.3-5.1 - mmol/L ?Syuxsiwu42458-292 - mmol/L?Carbon Xxgvkpa7722-97 - mmol/L ?Anion Atx1128-32 -?Blood Urea Oivmyhed68-81 - mg/dL ?Creatinine0.770.5-1.4 - mg/dL?Estimated Glomerular Filt Rate> 60- ?Glucose Aoheuqb4560-23 - mg/dL?Calcium9.78.4-10.2 - mg/dL * Examination: ???General Examination: ?GENERAL APPEARANCE:?pleasant, well nourished, well developed, in no acute distress, calm and relaxed, obese, man.?HEAD:?atraumatic, normocephalic.?EYES:?eomi, perrla, anicteric, conjugate.?EARS:?Hearing appears intact, anatomy unremarkable.?NOSE:?septum intact.?ORAL CAVITY:?normal, unremarkable.?NECK/THYROID:?no jugular venous distention, no [...] upper and lower extremities, sensory exam intact.?PSYCH:?alert, oriented, Verbal, thought process logical, goal directed, cognitive function intact, Asperger's syndrome.? Assessment: * Assessment: 1.?Obesity - E66.9 (Primary) ???Notes :His weight has been stable at 251 pounds. His body mass index is 39.3. We discussed his weight and diet today. We reviewed his weight loss strategy and made a plan to lose weight at a rate of 1 pound per week. Follow-up visit was arranged. I have begun to discuss GLP-1 drugs with him.???2.?Asthma - J45.909???Notes :He had no wheezing today and was comfortable breathing room air.Once he has set of wheezing.???3.?Asperger syndrome - F84.5???Notes :He is functioning well and no change in his regimen as necessary. He was continued on his medications. He continues to complete all of the activities of daily living without impairment.???4.?Obesity (BMI 30.0-34.9) - E66.9???Notes :His weigght has been stable at 251 pounds with a body mass index of 39.3. We have discussed weight reduction strategies at length. I recommended weight loss at a rate of one half of a pound per week.???5.?Irritable bowel syndrome - K58.9???Notes :It is likely the right lower quadrant pain was from the orbital bowel syndrome. Examination today was normal and a recent CT scan of the abdomen showed no abnormalities.???6.?Unspecified tinnitus - H93.19???Notes :The tinnitus has resolved.??? Plan: * Treatment: * Procedure Codes:? * Preventive Medicine:? ??Counseling:?Care goal follow-up plan:?Counseling for abnormal BMI given?Yes ?Above Normal BMI Follow-up?Dietary needs education, Exercise promotion: strength training * Follow Up:?2 Weeks, In two w eeks (Reason: ov no tests, To monitor patient's condition and adjust treatment as necessary) * Images: * Sign off status: Completed true * Provider:?Abhijit Gilmore MD Date:?02/25 Generated for Janice brown/Wild/Addissmitting on:?05/15/2024 11:32 AM EDT History and Physical Notes * [...] EYES: eomi, perrla, anicte mattie, conjugate EARS: Hearing appears inta ct, anatomy unremarkable NOSE: septum intact NECK/THYROID: no jugular venous [...] normal RECTAL EXAM: not examined PSYCH: alert, oriented, Lucero bal, thought process logical, goal directed, cognitive function intact, Asperger's syndrome ORAL CAVITY: normal, unremarkable
--- OUTSIDE RECORDS SUMMARY | 2024-05-15 11:32 | XMS_ITS ---
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 Vital Signs Temperature 97.9 degrees Fahrenheit 04/23/19 25 Blood pressure systolic 138 mm Hg 04/23/19 25 Blood pressure diastolic 82 mm Hg 025 Heart Rate 79 /min 04/23/2024 Height 67 in 04/23/2024 Weight 255 lbs 04/23/2024 BMI 39.93 kg/m2 04/23/2024 Encounters Encounter Location Date Provider Diagnosis Abhijit Gilmore III, MD [address] [place] [address] [place] [address] 04/23/2024 Abhijit Gilmore Seborrheic dermatiti s L21.9 ; Obesity E66.9 ; Asthma J45.909 and Asperger syndrome F84.5 Assessments Encounter Date Diagnosis (ICD Code) Assessment Notes Treatment Notes Treatment Clinical Notes 04/23/2024 Seborrheic dermatitis (ICD-10 - L21.9) He was offered topical and shampoo treatments for the seborrhea but he declined saying he did not wish to take prescription medications.I offered to refer him back to dermatology should he wish but he declined saying several he was a very minor nuisance to him and he did not require prescription medication. Did recommend Selsun Blue shampoo. 04/23/2024 Obesity (ICD-10 - E66.9) His weight has been stable at 251 pounds. His body mass index is 39. We discussed his weight and diet today. We reviewed his weight loss strategy and made a plan to lose weight at a rate of 1 pound per week. Follow-up visit was arranged. I have begun to discuss GLP-1 drugs with him. 04/23/2024 Asthma (ICD-10 - J45.909) He had no wheezing today and was comfortable breathing room air.Once he has set of wheezing. 04/23/2024 Asperger syndrome (ICD-10 - F84.5) He [...] Next Appt Details Follow Up: As Scheduled, Isha son: Annual Exam Provider Name:Abhijit Gilmore, 06/23/2024 02:30:00 PM, [address] [place] [address] [address], [place], [address], Progress Notes * BRYANT, Juan JrDOB:[birth year] (38 yo M)Acc No.[id number]:04/23/2024 Progress Notes Patient:?BRYANTJadiel KNIGHT Provider:?Abhijit Gilmore MD :1985???Age:38 Y???Sex:Male David e:04/23/2024 Address:[address] [place], [place] [id number] Subjective: * Chief Complaints: * ???SeborrheaRequests referra l for vasectomyAsperger syndromeTinnitusNocturia/enuresis * HPI: ???COVID-19 Screening:? He returns for management of several medical issues.? In the recent past she complained of urinating in the bed at night and was referred to urology for enuresis.? He now gives a story that sounds more like nocturia.? Urologist has been involved in that evaluation is ongoing.? He has significant seborrhea of his scalp and forehead.? I have recommended treatment for this with Selsun Blue shampoo and topical treatments but he declined getting it did not bother him and did not want to try prescription medication.? He says he does not want to have children and wants a referral back to urology for vasectomy.? He has a follow-up appointment with urology for the urinary issue and encouraged him to bring it up then.? He is otherwise free of new complaints and seems healthy and well. ?Questions?Have you had any new onset fever, chills, cough, congestion, sore throat, shortness of breath, muscle aches??No * ROS:?General/Constitutional:?pain?only normal aches and pains.?Chills?denies.?Fatigue?admits.?Fever?denies.?ENT:?Decreased hearing?denies.?Respiratory:?Cough?denies.?Cardiovascular:?Chest pain with exertion?denies.?Dyspnea on exertion?denies.?Shortness of breath?denies.?Gastrointestinal:?Constipation?occasional.?Decreased appetite?denies.?Diarrhea?denies.?Heartburn?denies.?Nausea?denies.?Rectal bleeding?denies.?Vomiting?denies.?Hematology:?bruising?denies.?petechiae?denies.?Swollen glands?none have been noted.?Genitourinary:?Frequent urination?Nocturia about every 2 weeks.?Musculoskeletal:?Muscle aches?denies.?Painful joints?denies.?Sciatica?denies.?Weakness?denies.?Skin:?Itching?denies.?Rash?denies.?Skin lesion(s)?denies.?Neurologic:?Difficulty speaking?denies.?Dizziness?denies.?Headache?denies.?Low back pain?denies.?Psychiatric:?Depressed mood?denies.? * Medical History:? * Surgical History:?Colonoscop y, Endoscopy at [facility] [id number] tooth extracted 2013No history * Hospitalization/Major Diagno [...] rgies Verified] Objective: * Vitals:?Ht: 67, Wt: 255, BMI :39.93, BP: 138/82, HR: 79, Temp: 97.9, Ht-cm: 170.18, Wt-k.67. * ???Past Orders: ???Lab:Prostate Specific Ant igen (Order Date - 03/10/2024) (Collection Date & Time - 03/10/2024 09:13 AM) ? Value Reference Range ?Prostate Specific Antigen 0.50 <0.05-4.0 - ng/mL Lab:Complete Blood Count Aut o Diff * [...] 0.0-0.012 X10*3/uL) 0.000 (Ref Range: 0.0-0.012 X10*3/uL) ???Lab:Erythrocyte Sedimentation Rate (Order Date - 03/10/2024) (Collection Date & Time - 03/10/2024 09:13 AM)?ValueReference Range?Erythrocyte Sedimentation Wzkb26-89 - MM/HR ???Lab:Comprehensive [place]. Panel Fast (Order Date - 03/10/2024) (Collection Date & Time - 03/10/2024 09:13 AM)?ValueReference Range?Oyjjpj661303- 145 - mmol/L?Bilirubin Total0.90.0-1.0 - mg/dL?Aspartate Amino Zzmwrgfvfzw827-39 - U/L?Alanine Iienxujboexkecil68E3-44 - U/L ?Total Protein7.26.5-8.0 - g/dL?Albumin Level4.33.5-5.0 - g/dL ?Alkaline Ipqnkjhbhdp1083-191 - U/L?Potassium4.13.3-5.1 - mmol/L ?Ssgcgchx26710-667 - mmol/L?Carbon Ssbxhol9721-09 - mmol/L ?Anion Ejw7255-85 -?Blood Urea Bkeszako89-88 - mg/dL ?Creatinine0.770.5-1.4 - mg/dL?Estimated Glomerular Filt Rate> 60- ?Glucose Zewhaeu4682-59 - mg/dL?Calcium9.78.4-10.2 - mg/dL * Lab:Lipid Panel * Collection Date 03/10/2024 [...] (Ref Range: mg/dL) 36 (Ref Range: mg/dL) * Examination: ???General Examination: ?GENERAL APPEARANCE:?pleasant, well nourished, well developed, in no acute distress, calm and relaxed, obese, man.?HEAD:?atraumatic, normocephalic.?EYES:?eomi, perrla, anicteric, conjugate.?EARS:?normal.?NOSE:?septum intact.?ORAL CAVITY:?normal, unremarkable.?NECK/THYROID:?no jugular venous distention, no carotid bruit, thyroid normal.?LYMPH NODES:?no enlarged lymph nodes,spleen normal.?SKIN:?Significant seborrheic dermatitis scalp and for.?HEART:?no clicks, gallops, murmurs, or rubs, regular rhythm, [...] sensory exam intact.?PSYCH:?alert, oriented.? Assessment: * Assessment: 1.?Seborrheic dermatitis - L 21.9 (Primary)???Notes :He was offered topical and shampoo treatments for the seborrhea but he declined saying he did not wish to take prescription medications.I offered to refer him back to dermatology should he wish but he declined saying several he was a very minor nuisance to him and he did not require prescription medication.? Did recommend Selsun Blue shampoo.???2.?Obesity - E66.9???Notes :His weight has been stable [...] Other reason not done * Follow Up:?As Scheduled (Isha son: Annual Exam) * Images: * Sign off status: Completed true * Provider:?Abhijit Gilmore MD Date:?03/29 Generated for Janice brown/Wild/eTransmitting on:?05/15/2024 11:32 AM EDT History and Physical [...] and lower extremities, sensory exam intact SKIN: Significant seborrhe ic dermatitis scalp and for PERIPHERAL PULSES: normal BREASTS: no masses palpable b ilaterally MUSCULOSKELETAL: extremities unremark able, no clubbing, cyanosis or edema LYMPH NODES: no enlarged lymph no bibi,spleen normal RECTAL EXAM: not examined PSYCH: alert, oriented ORAL CAVITY: normal, unremarkable
== END 2024-05-15 09:53 | disposition home or self-care (01) ==
LOC: HO.US 09:52
PROVIDERS: PCP Internal Medicine Medical Oncology; Visit Provider Urology
DX: R35.0 Frequency of micturition (principal); R30.0 Dysuria
CPT/HCPCS: 76770

== ENCOUNTER → 2024-05-15 09:54 | Outpatient (BNV) | payer MEDICARE, MEDICAID, SELFPAY | PROVIDERS: PCP Internal Medicine Medical Oncology; Visit Provider Radiology Diagnostic Radiology | DX: N32.89 Other specified disorders of bladder (principal); N28.1 Cyst of kidney, acquired | CPT/HCPCS: 76770 ==

== ENCOUNTER 2024-05-25 12:57 | Outpatient (AMB) | payer MEDICARE, MEDICAID, SELFPAY ==
--- NOTE | 2024-05-25 13:06 | A.OFFVIS_ITS ---
Intake Visit Reasons: 10w/US Intake Note: Patient is present for 10W/US Urology Medication:NONE Antibiotic Allergy:PENICILLINS Blood Thinner:NONE Store Administrator Required: No Allergies Penicillins Allergy (Mild, Verified 05/25/24 13:16) Unknown Medication List - Last Reconciled 05/25/24 by Dedrick Bland MD clonazepam 0.5 mg PO DAILY nirmatrelvir-ritonavir 300 mg (150 mg x 2)-100 mg (Paxlovid) 3 ea PO PER PKG DIR 5 days silodosin (Rapaflo) 8 mg PO DAILY HPI Comments Details: 05/25/24---Jadiel is a 38-year-old male, history of Asperger's syndrome, obesity, initially evaluated 03/19/2024 due to complaints of dysuria and urinary leakage at night, states symptoms have been for about 4 months. He states that he uses cranberry juice and this helps with the urinary discomfort. He denies urinary leakage during the daytime. He states he drinks about a gallon of water daily including 2 cups of tea, herbal tea before bedtime. During his last visit we discussed his fluid intake. I have discussed cutting back on water intake in stopping fluid intake by 19:00. He states he is not sexually active. He was empirically started on doxycycline for irritative UTI symptoms and nonspecific urethritis. Renal bladder ultrasound was ordered. I have discussed results there is a small simple renal cyst there is bladder wall thickening. I will trial an alpha-julienne. Rapaflo 8 mg daily discussed side effects to include stuffy nose, headache, retrograde ejaculation follow-up in 6 months. 03/19/24--Jadiel is a 38-year-old male, history of Asperger's syndrome, obesity, here for evaluation due to complaints of dysuria and urinary leakage at night, states symptoms have been for about 4 months. He states that he uses cranberry juice and this helps with the urinary discomfort. He denies urinary leakage during the daytime. He states he drinks about a gallon of water daily including 2 cups of tea, herbal tea before bedtime. He also has water at his bed and we will drink water few wakes up during the night because he feels dry. I have discussed cutting back on water intake in stopping fluid intake by 19:00. He states he is not sexually active. Urinalysis is negative for blood or leukocytes. Will trial doxycycline b.i.d. for nonspecific urethritis. Check renal/bladder ultrasound. [facility] Medical History Dysuria Morbid obesity Elevated LDL cholesterol level Aspergers' syndrome IBS (irritable bowel syndrome) Asthma Surgical History History of colonoscopy Family History Father HTN (hypertension) Hyperlipidemia Obesity BPH (benign prostatic hyperplasia) Emphysema lung Chronic a-fib Mother Diabetes mellitus Depression Hyperlipidemia Obesity Asthma Review of Systems Const All systems reviewed & are unremarkable except as noted in HPI and below Reports no additional complaints Eyes Reports no additional complaints ENT Reports no additional complaints Card Reports no additional complaints Resp Reports no additional complaints GI Reports no additional complaints Reports as per HPI Musc Reports no additional complaints Skin/Breast Reports system reviewed and no additional complaints, except as documented Neuro Reports no additional complaints Psych Reports no additional complaints Endo Reports no additional complaints Dav/Lymph Reports no additional complaints Aller/Immun Reports no additional complaints Results AMB Urinalysis, Automated UA Leukoctes 0 Genevieve/uL Last Edit by JIE Henderson on 05/25/24 13:24 UA Nitrite Negative Last Edit by JIE Henderson on 05/25/24 13:24 UA Urobilinogen 3.5 mg/dL Last Edit by JIE Henderson on 05/25/24 13:2 4 UA Protein 0 mg/dL Last Edit by JIE Henderson on 05/25/24 13:24 UA pH 5.5 Last Edit by JIE Henderson on 05/25/24 13:24 UA Blood 10 Jah/uL Last Edit by JIE Henderson on 05/25/24 13:24 UA Specific [place] 1.025 Last Edit by JIE Henderson on 05/25/24 13: 24 UA Ketone Negative Last Edit by JIE Henderson on 05/25/24 13:24 UA Bilirubin 0 mg/dL Last Edit by JIE Henderson on 05/25/24 13:24 UA Glucose 0 mg/dL Last Edit by JIE Henderson on 05/25/24 13:24 Results Reviewed Results Reviewed: Laboratory Last Values Urine pH (Auto) 5.5 05/25/24 13:24 Specific [place] (Auto) 1.025 05/25/24 13:24 Urine Protein (Auto) 0 mg/dL 05/25/24 13:24 Glucose (UA)(Auto) 0 mg/dL 05/25/24 13:24 Urine Ketones (Auto) Negative 05/25/24 13:24 Urine Blood (Auto) 10 Jah/uL 05/25/24 13:24 Urine Nitrite (Auto) Negative 05/25/24 13:24 Urine Bilirubin (Auto) 0 mg/dL 05/25/24 13:24 Urine Urobilinogen (Auto) 3.5 mg/dL 05/25/24 13:24 Leukocyte Esterase (Auto) 0 Genevieve/uL 05/25/24 13:24 Date of Service: 05/15/24 Procedure(s): US retroperitoneal comp EXAMINATION: US RETROPERITONEUM HISTORY: R35.0 - Frequency of micturition TECHNIQUE: Real-time grayscale ultrasound imaging of the kidneys was performed and images were reviewed. COMPARISON: There are no prior studies for comparison. FINDINGS: Right kidney: The right kidney measures 12.9 x 5.8 x 5.8 cm. Renal parenchymal echotexture and thickness are normal. There is a 1.5 x 1.3 x 1.2 cm cyst at the lower pole. There is no hydronephrosis or renal calculi. Left Kidney: The left kidney measures 12.5 x 6.1 x 5.2 cm. Renal parenchymal echotexture and thickness are normal. There are no masses. There is no hydronephrosis or renal calculi. There is debris in the urinary bladder.. Bilateral ureteral jets are identified. Before voiding, the urinary bladder measured 9.5 x 15.5 x 8.0 cm, for an estimated volume of 617 mL. After voiding, the urinary bladder measured 2.2 x 1.1 x 2.7 cm, for an estimated volume of 3 mL. The collapsed urinary bladder demonstrates wall thickening measuring up to 10 mm. The prostate measures 3.5 x 3.7 x 4.0 cm. IMPRESSION: 1. Debris in the urinary bladder. The collapsed urinary bladder demonstrates wall thickening. 2. 1.5 cm right lower pole renal cyst. 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 The patient expressed understanding and agreement with the above treatment plan. The patient is aware they should contact our office by phone for worsening of their current condition or the appearance of new symptoms. Compliance is encouraged with any medications and followup testing that is ordered. It is a privilege to be allowed the opportunity to participate in the urologic care of your patient. If you have any questions or concerns regarding treatment for the above conditions please do not hesitate to contact me. The office telephone contact is [phone]. This note is constructed in part using voice recognition software. While every effort has been made to ensure accuracy change management consultant errors may have been included. Yours sincerely, Dedrick Bland MD Coding Level of Care Code Est Pt Level 4 (09801) Diagnoses Urinary frequency R35.0 Spastic pelvic floor syndrome K59.02 Bladder wall thickening N32.89 Renal cyst N28.1
--- OUTSIDE RECORDS SUMMARY | 2024-05-25 14:33 | XMS_ITS | Patient Health Record ---
Author Organization Abhijit Gilmore III, MD Address [address] [place] [address] [place] [address] Care Team Providers Care Natural Resources Faculty Member Name Role Phone Abhijit Gilmore Primary Care Provider [phone] Allergies Allergen (clinical drug ingredient) Drug/Non Drug Allergy documented on EMR Reaction Allergy Type Onset Date Status Penicillin Unknown Drug Allergy Active Results Component Value Reference Range Notes XR foot LT min 3V Reviewed date:10/13/2023 06:43:09 AM Interpretation: Performing Lab: Notes/Report: [address] [address] XRay Report Signed Patient: Jadiel Bryant MR#: [id number] 1542 : 1985 Acct:[id number] Age/Sex: 37 / M ADM Date: 10/08/23 Loc: [facility] Attending Dr: Abhijit Gilmore MD Ordering Physician: Abhijit Gilmore MD Date of Service: 10/08/23 Procedure(s): XR foot LT min 3V Accession Number(s): [id number] cc: Abhijit Gilmore MD EXAMINATION: XR FOOT, [...] in OV> 10/08/23 1011 DD/ 0910 TD/TT: Bus Attendant: [address] [address] XRay Report Signed Patient: Kashif Bryant MR#: [id number] 1542 : 1985 Acct:[id number] Age/Sex: 37 / M ADM Date: 10/08/23 Loc: [facility] Attending Dr: Abhijit Gilmore MD Ordering Physician: Abhijit Gilmore MD Date of Service: 10/08/23 Procedure(s): XR alli t LT min 3V Accession Number(s): [id number] cc: Abhijit Gilmore MD EXAMINATION: XR FOOT, [...] in OV> 10/08/23 1011 DD/ 0910 TD/TT: Bus Attendant: Complete Blood Count Auto Di ff Reviewed date:03/12/2024 01:23:20 PM Interpretation: Performing Lab:[facility], [address] [place] [address] Notes/Report: White Blood Count 6.3 4.8-10.8 X10*3/uL [...] te Reviewed date:03/12/2024 01:23:20 PM Interpretation: Performing Lab:[facility], [address] [place] [address] Notes/Report: Erythrocyte Sedimentation Rate 4 0-15 MM/HR Patients with polycythemia and many hemoglobin abnormalities may have depressed sed rates whereas patients with anemia may have elevated sed rates. Comprehensive [place]. Panel Fa st Reviewed date:03/12/2024 01:23:20 PM Interpretation: Performing Lab:[facility], [address] [place] [address] Notes/Report: Sodium 140 135-145 mmol/L Potassium 4.1 [...] Panel Reviewed date:03/12/2024 01:23:20 PM Interpretation: Performing Lab:[facility], [address] [place] [address] Notes/Report: Triglycerides 182 <150 mg/dL Desirable Triglyceride: [...] Antigen Reviewed date:03/12/2024 01:23:20 PM Interpretation: Performing Lab:[address] [address] Notes/Report: Prostate Specific Antigen 0.50 <0.05-4.0 ng/mL PSA methodology: Hernández Alinity i Chemiluminescent Microparticle Immunoassay (CMIA) US retroperitoneal comp Reviewed date:05/16/2024 06:00:35 AM Interpretation: Performing Lab: Notes/Report: [address] [address] Ultrasound Report Signed Patient: Jadiel Bryant MR#: [id number] 1542 : 1985 Acct:[id number] Age/Sex: 38 / M ADM Date: 05/15/24 Loc: HO.US Attending Dr: Dedrick Bland MD Ordering Physician: Dedrick Bland MD Date of Service: 05/15/24 Procedure(s): US retroperitoneal comp Accession Number(s): [id number] cc: Dedrick Bland MD; Abhijit Gilmore MD [...] 05/15/2024 11:01 AM EDT Dictated By: Abhijit aJmes MD Signed By: <Electronically signed by Abhijit James MD in OV> 05/15/24 1101 DD/ 1030 TD/TT: 05/15/24 1037 Bus Attendant: [address] [address] Ultrasound Report Signed Patient: Kashif Bryant MR#: [id number] 1542 : 1985 Acct:[id number] Age/Sex: 38 / M ADM Date: 05/15/24 Loc: HO.US Attending Dr: Dedrick Bland MD Ordering Physician: Dedrick Bland MD Date of Service: 05/15/24 Procedure(s): US retroperitoneal comp Accession Number(s): [id number] cc: Giovanny Bland MD; Abhijit Gilmore MD [...] 05/15/24 1101 DD/ 1030 TD/TT: 05/15/24 1037 Bus Attendant: Reason For Referral Reason Consult and Treat Dysuria for 2 weeks Diagnosis 1 Dysuria (R30.0) Diagnosis 2 Enuresis (R32) Referral Organization Abhijit Gilmore III, MD Referring Provider First Name Abhijit Referring Provider Last Name Deirdre Referring Provider Speciality Internal M edicine Referred Provider [facility] er, Urology Referred Provider Specialty Urology [...] Problem Status W/U Status Risk Notes Problem 252924223 Obesity (E66.9) Active confirmed His weight has been stable at 251 pounds. His body mass index is 39. We discussed his weight and diet today. We reviewed his weight loss strategy and made a plan to lose weight at a rate of 1 pound per week. Follow-up visit was arranged. I have begun to discuss GLP-1 drugs with him. Problem 746557855 Asthma (J45.909) Active confirmed He had no wheezing today and was comfortable breathing room air.Once he has set of wheezing. Problem 71939596 Irritable bowel syndrome (K58.9) Active confirmed It is likely the right lower quadrant pain was from the orbital bowel syndrome. Examination today was normal and a recent CT scan of the abdomen showed no abnormalities. Problem 865001002 Nocturia (R35.1) Active confirmed He will be observed to see if the antibiotic reduce his nocturia. Problem 93519103 Penicillin allergy (Z88.0) Active confirmed Problem 06485560 Asperger syndrome (F84.5) Active confirmed He is functioning well and no change in his regimen as necessary. He was continued on his medications. He continues to complete all of the activities of daily living without impairment. Problem 97329113 Unspecified tinnitus (H93.19) Active confirmed The tinnitus has resolved. Problem 25501728 Unspecified eustachian tube disorder (H69.90) Active confirmed He has had no difficulty with hearing lately. His free of any symptoms at this time. Problem 104693860 History of tympanostomy tube placement (Z96.22) Active confirmed He had tubes inserted when he was a child. The discomfort is persistent although the infection has mostly resolved. He was referred back to ENT. Problem 48332274 Seborrheic dermatitis (L21.9) Active confirmed He was [...] Provider Diagnosis Abhijit Gilmore III, MD [address] [place] [address] [place] [address] 06/18/2023 Abhijit Gilmore Obesity (BMI 30.0-34 .9) E66.9 ; Asthma J45.909 ; Asperger syndrome F84.5 ; Irritable bowel syndrome K58.9 and Ureterolithiasis N20.1 Abhijit Gilmore III, MD [address] [place] [address] [place] [address] 10/03/2023 Abhijit Gilmore Obesity (BMI 30.0-34 .9) E66.9 and Left foot pain M79.672 Abhijit Gilmore III, MD [address] [place] [address] [place] [address] 10/11/2023 Abhijit Gilmore Pain in left foot M7 9.672 ; Asperger syndrome F84.5 ; Asthma J45.909 ; Unspecified tinnitus H93.19 ; Ureterolithiasis N20.1 and Obesity (BMI 30.0-34.9) E66.9 Abhijit Gilmore III, MD [address] [place] [address] [place] [address] 12/11/2023 Abhijit Gilmore Enuresis R32 ; Obesi ty (BMI 30.0-34.9) E66.9 ; Asthma J45.909 ; Asperger syndrome F84.5 and Irritable bowel syndrome K58.9 Abhijit Gilmore III, MD [address] [place] [address] [place] [address] 01/22/2024 Abhijit Gilmore Obesity (BMI 30.0-34 .9) E66.9 ; Asthma J45.909 ; Asperger syndrome F84.5 and Irritable bowel syndrome K58.9 Abhijit Gilmore III, MD [address] [place] [address] [place] [address] 02/28/2024 Abhijit Gilmore Obesity E66.9 ; Fati riki R53.83 ; Asperger syndrome F84.5 ; Asthma J45.909 ; Unspecified tinnitus H93.19 and Enuresis R32 Abhijit Gilmore III, MD [address] [place] [address] [place] [address] 03/13/2024 Abhijit Gilmore Obesity E66.9 ; Asth ma J45.909 ; Asperger syndrome F84.5 ; Obesity (BMI 30.0-34.9) E66.9 ; Irritable bowel syndrome K58.9 and Unspecified tinnitus H93.19 Abhijit Gilmore III, MD [address] [place] [address] [place] [address] 03/27/2024 Abhijit Gilmore Obesity E66.9 ; Noct uria R35.1 ; Asthma J45.909 and Asperger syndrome F84.5 Abhijit Gilmore III, MD [address] [place] [address] 04/23/2024 Abhijit Gilmore Seborrheic dermatiti s L21.9 ; Obesity E66.9 ; Asthma J45.909 and Asperger syndrome F84.5 Abhijit Gilmore III, MD [address] [facility] [place] [address] 08/09/2023 Abhijit Gilmore III, MD [address] [place] [address] [place] [address] 12/02/2023 Abhijit Gilmore UTI symptoms R39.9 Abhijit Gilmore III, MD [address] [place] [address] [place] [address] 12/26/2023 Abhijit Gilmore III, MD [address] [place] [address] [place] [address] 02/28/2024 Abhijit Gilmore Assessments Encounter Date Diagnosis [...] Culture 12/02/2023 Next Appt Details Provider Name:Abhijit Chawlarne, 06/23/2024 02:30:00 PM, [address] [place] [address] [address] [place] [address], [place], [address], Insurance Providers Payer Name Payer Address Payer Phone Subscriber Number Group Number Insured Name Patient Relationship to Insured Coverage Start Date Coverage End Date MEDICARE NGS [address] [place] [address] [phone] [id number] Jadiel Mcdowell Self - patient is the insured MEDICAID [place] [address] [place], [place] [phone] [id number] Jadiel Mcdowell Self - patient is the insured Medical (General) History Medical History History ICD Code Irritable bowel syndrome 564.1 asthma Asperger's syndrome elevated LDL allergic to penicillin Morbid obesity Enuresis Surgical History Surgery Date(Month/Year) No history wisdom tooth extracted 2013 Colonoscopy, Endoscopy at [facility] 2014-12-03 Hospitalization History Reason Date(Month/Year) No history
--- OUTSIDE RECORDS SUMMARY | 2024-05-25 14:33 | XMS_ITS ---
Author Organization Abhijit Gilmore III, MD Address [address] [place] [address] [place] [address] Care Team Providers Care Revenue Manager Name Role Phone Abhijit Gilmore Primary Care Provider [phone] Allergies Allergen (clinical drug ingredient) Drug/Non Drug [...] Problem Status W/U Status Risk Notes Problem 911411501 Nocturia (R35.1) Active confirmed He will be observed to see if the antibiotic reduce his nocturia. Problem 995031375 Obesity (E66.9) Active confirmed His weight has [...] Date Provider Diagnosis Abhijit Gilmore III, MD [address] [place] [address] [place] [address] 03/27/2024 Abhijit Gilmore Obesity E66.9 ; Nocturia [...] check-up Provider Name:Abhijit Gilmore, 06/23/2024 02:30:00 PM, [address] [place] [address] [place], [address], Progress Notes * Jadiel BRYANT JrDOB:[birth year] (38 yo M)Acc No.[id number]:03/27/2024 Progress Notes Patient:?Jadiel BRYANT Provider:?Abhijit Gilmore MD :1985???Age:38 Y???Sex:Male David e:03/27/2024 Address:[address] [place], [place] [id number] Subjective: * Chief Complaints: * ???EnuresisDeclines flu [...] occupational hazards due to his work in [email or web address].He had a urology consultation recently with Dr. Bland who put him on doxycycline for UTI. * ROS:?General/Constitutional:?pain?only normal aches and pains.?Chills?denies.?Fatigue?admits.?Fever?denies.?ENT:?Decreased hearing?denies.?Respiratory:?Cough?denies.?Cardiovascular:?Chest pain with exertion?denies.?Dyspnea on exertion?denies.?Shortness of breath?denies.?Gastrointestinal:?Constipation?occasional.?Decreased appetite?denies.?Diarrhea?denies.?Heartburn?denies.?Nausea?denies.?Rectal bleeding?denies.?Vomiting?denies.?Hematology:?bruising?denies.?petechiae?denies.?Swollen glands?none have been noted.?Genitourinary:?Frequent urination?once a night.?Musculoskeletal:?Muscle aches?denies.?Painful joints?denies.?Sciatica?denies.?Weakness?denies.?Skin:?Itching?denies.?Rash?denies.?Skin lesion(s)?denies.?Neurologic:?Difficulty speaking?denies.?Dizziness?denies.?Headache?denies.?Low back pain?denies.?Psychiatric:?Depressed mood?denies.? * Medical History:? * Surgical History:?Colonoscop y, Endoscopy at [facility] [id number] tooth extracted 2013No history * Hospitalization/Major Diagno [...] Sedimentation Rate 4 0-15 - MM/HR ???Lab:[facility]. P sotero Fast (Order Date - 03/10/2024) [...] Provider:?Abhijit Gilmore MD Date:?02/27 Generated for Davidi kevin/Wild/eTransmitting on:?05/25/2024 02:33 PM EDT History and Physical Notes * HPI [...]
--- OUTSIDE RECORDS SUMMARY | 2024-05-25 14:33 | XMS_ITS ---
Author Organization Abhijit Gilmore III, MD Address [address] [place] [address] [place] [address] Care Team Providers Care Cotton Bag Sewer Name Role Phone Abhijit Gilmore Primary Care Provider [phone] Allergies Allergen (clinical drug ingredient) Drug/Non Drug [...] Problem Status W/U Status Risk Notes Problem 51147466 Seborrheic dermatitis (L21.9) Active confirmed He was [...] Date Provider Diagnosis Abhijit Gilmore III, MD [address] [place] [address] [place] [address] 04/23/2024 Abhijit Gilmore Seborrheic dermatiti s L21.9 [...] Exam Provider Name:Abhijit Gilmore, 06/23/2024 02:30:00 PM, [address] [place] [address] [address], [place], [address], Progress Notes * BRYANT, Juan JrDOB:[birth year] (38 yo M)Acc No.[id number]:04/23/2024 Progress Notes Patient:?BRYANTJadiel KNIGHT Provider:?Abhijit Gilmore MD :1985???Age:38 Y???Sex:Male David e:04/23/2024 Address:[address] [place], [place] [phone] Subjective: * Chief Complaints: * ???SeborrheaRequests referra [...] History:? * Surgical History:?Colonoscop y, Endoscopy at [facility] 4005-35-28rdldpi tooth extracted 2013No history * Hospitalization/Major Diagno [...] Time - 03/10/2024 09:13 AM)?ValueReference Range?Erythrocyte Sedimentation Qagn95-58 - MM/HR ???Lab:[facility] [place]. Panel Fast (Order Date - 03/10/2024) (Collection Date & Time - 03/10/2024 09:13 AM)?ValueReference Range?Vlptjs438751- 145 - mmol/L?Bilirubin Total0.90.0-1.0 - mg/dL?Aspartate Amino Zupkzzlmisf119-33 - U/L?Alanine Tdqqgzkqxbmqurtj29G2-00 - U/L ?Total Protein7.26.5-8.0 - g/dL?Albumin Level4.33.5-5.0 - g/dL ?Alkaline Mvubohdlwcr5190-045 - U/L?Potassium4.13.3-5.1 - mmol/L ?Npncunug17372-782 - mmol/L?Carbon Jfptjnu0024-41 - mmol/L ?Anion Mzc6304-98 -?Blood Urea Pkagwutc30-39 - mg/dL ?Creatinine0.770.5-1.4 - mg/dL?Estimated Glomerular Filt Rate> 60- ?Glucose Adfnfwk7309-31 - mg/dL?Calcium9.78.4-10.2 - mg/dL * Lab:Lipid Panel [...] Gilmore MD Date:?03/29 Generated for Janice brown/Wild/eTransmitting on:?05/25/2024 02:33 PM EDT History and Physical [...]
--- OUTSIDE RECORDS SUMMARY | 2024-05-25 14:33 | XMS_ITS ---
Author Organization Abhijit Gilmore III, MD Address [address] [place] [address] [place] [address] Care Team Providers Care Leaded Glass Installer Name Role Phone Abhijit Gilmore Primary Care [...] Date Provider Diagnosis Abhijit Gilmore III, MD [address] [place] [address] [address] [place], [place] [address] 03/13/2024 Abhijit Gilmore Obesity E66.9 ; Asth [...] necessary Provider Name:Abhijit Gilmore, 06/23/2024 02:30:00 PM, [address] [place] [address] [address], [place], [address], Progress Notes * Jadiel BRYANT JrDOB:[birth year] (38 yo M)Acc No.[id number]:03/13/2024 Progress Notes Patient:?Jadiel BRYANT Provider:?Abhijit Gilmore MD :1985???Age:38 Y???Sex:Male David e:03/13/2024 Address:[address] [place] [address] Subjective: * Chief Complaints: * ???AsthmaObesityAnuresis * [...] History:? * Surgical History:?Colonoscop y, Endoscopy at [facility] 5976-44-01huspnc tooth extracted 2013No history * Hospitalization/Major Diagno [...] Range: mg/dL) 36 (Ref Range: mg/dL) ???Lab:[facility] [place]. Panel Fast (Order Date - 03/10/2024) (Collection Date & Time - 03/10/2024 09:13 AM)?ValueReference Range?Stjrtp923307- 145 - mmol/L?Bilirubin Total0.90.0-1.0 - mg/dL?Aspartate Amino Spjdywetdcd371-85 - U/L?Alanine Qrgdfvxnzdfjneer03B8-13 - U/L ?Total Protein7.26.5-8.0 - g/dL?Albumin Level4.33.5-5.0 - g/dL ?Alkaline Zrloshohdaf2714-431 - U/L?Potassium4.13.3-5.1 - mmol/L ?Zysavubv73163-259 - mmol/L?Carbon Qucnjxp1017-90 - mmol/L ?Anion Hwn7088-75 -?Blood Urea Tayhirov13-27 - mg/dL ?Creatinine0.770.5-1.4 - mg/dL?Estimated Glomerular Filt Rate> 60- ?Glucose Muwjysy8659-11 - mg/dL?Calcium9.78.4-10.2 - mg/dL * Examination: ???General [...] Gilmore MD Date:?02/25 Generated for Janice brown/Wild/Addissmitting on:?05/25/2024 02:33 PM EDT History and Physical [...]
== END 2024-05-25 13:41 | disposition home or self-care (01) ==
LOC: HO.HUSH 12:57
PROVIDERS: PCP Internal Medicine Medical Oncology; Visit Provider Urology
DX: R35.0 Frequency of micturition (principal); K59.02 Outlet dysfunction constipation; N32.89 Other specified disorders of bladder; N28.1 Cyst of kidney, acquired; Z13.9 Encounter for screening, unspecified
CPT/HCPCS: 99214

== ENCOUNTER → 2024-05-25 12:57 | Outpatient (BNVA) | payer MEDICARE, MEDICAID, SELFPAY | PROVIDERS: PCP Internal Medicine Medical Oncology; Visit Provider Urology | DX: K59.02 Outlet dysfunction constipation (principal); R35.0 Frequency of micturition; N32.89 Other specified disorders of bladder; N28.1 Cyst of kidney, acquired | CPT/HCPCS: 81003; 99212 ==

== ENCOUNTER → 2024-06-23 15:12 | Outpatient (REF) | payer MEDICARE, MEDICAID, SELFPAY ==
--- NOTE | 2024-06-23 15:16 | ECG_ITS ---
Test Reason : CP Blood Pressure : */* mmHG Vent. Rate : 99 BPM Atrial Rate : 99 BPM P-R Int : 142 ms QRS Dur : 84 ms QT Int : 366 ms P-R-T Axes : 46 46 43 degrees QTcB Int : 469 ms Normal sinus rhythm Normal ECG No previous ECGs available Referred By: Abhijit Gilmore Electronically Signed By: Casey Calle
== END ==
LOC: HO.CARD 15:12
PROVIDERS: PCP Internal Medicine Medical Oncology; Visit Provider Internal Medicine Medical Oncology
DX: R07.9 Chest pain, unspecified (principal)
CPT/HCPCS: 93005

== ENCOUNTER → 2024-06-23 15:16 | Outpatient (BNV) | payer MEDICARE, MEDICAID, SELFPAY | PROVIDERS: PCP Internal Medicine Medical Oncology; Visit Provider Internal Medicine Cardiovascular Disease | DX: R07.9 Chest pain, unspecified (principal) | CPT/HCPCS: 93010 ==

== ENCOUNTER → 2024-08-18 10:54 | Outpatient (REF) | payer MEDICARE, MEDICAID, SELFPAY ==
--- OUTSIDE RECORDS SUMMARY | 2024-08-18 07:56 | XMS_ITS ---
Author Organization Abhijit Gilmore III, MD Address [address] [place] [address] [place] [address] Care Team Providers Care Child And Adolescent Therapist Name Role Phone Abhijit Gilmore Primary Care Provider [phone] Social History Sex Assigned At : Social History Observation Description Sex Assigned At Male Encounters Encounter Location Date Provider Diagnosis Abhijit Gilmore III, MD [address] [place] [address] [place] [address] 08/18/2024 Abhijit Gilmore Plan Of Treatment Next Appt Details Provider Name:Abhijit Gilmore, 09/01/2024 09:30:00 AM, [address] [place] [address] [place], [address], Provider Name:Abhijit Gilmore, 06/25/2025 02:45:00 PM, [address] [place] [address] [place], [address], Progress Notes * Jadiel BRYANT JrDOB:[birth year] (38 yo M)Acc No.[id number]:08/18/2024 Patient: Jadiel ANDERSEN Jr :1985 A ge:38 Y S ex:Male Address:[address] [place] [address], [address] * * Date:
--- NOTE | 2024-08-18 10:57 | CA_ITS ---
Acquisition Time: 2024-08-18 10:54:47 Total Exercise Time: 00:07:31 Test Indications: CP Medications: SEE H&P Protocol: MERNA Max HR: 166 BPM 91% of Pred: 182 BPM Max BP: 148/82 mmHG Max Work Load: 9.3 METS Exercise stress test with exercise 7 mins 31 secs of Merna Protocol, achieving 91% MPHR, with reports of SOB, no chest pain, without any arrythmias, with normotensive repsonse to exercise. Without EKG changes meeeting criteria for ischemia; baseline Q waves noted. In recovery, breathing returned to baseline. Test reviewed with Dr. Oconnor. Referred By: Abhijit Gilmore Electronically Signed By: Liam Banks
== END ==
LOC: HO.CARD 10:54
PROVIDERS: PCP Internal Medicine Medical Oncology; Visit Provider Internal Medicine Medical Oncology
DX: R07.9 Chest pain, unspecified (principal)
CPT/HCPCS: 93017

== ENCOUNTER → 2024-08-18 10:57 | Outpatient (BNV) | payer MEDICARE, MEDICAID, SELFPAY | PROVIDERS: PCP Internal Medicine Medical Oncology | DX: R06.02 Shortness of breath (principal) | CPT/HCPCS: 93016; 93018 ==

== ENCOUNTER 2024-11-20 10:51 | Outpatient (AMB) | payer MEDICARE, MEDICAID, SELFPAY ==
--- OUTSIDE RECORDS SUMMARY | 2024-06-23 10:30 | XMS_ITS ---
Author Organization Abhijit Gilmore III, MD Address [address] [place] [address] [place] [address] Care Team Providers Care Supervisor Process Testing Name Role Phone Dr. Abhijit Gilmore III Primary Care Provider [phone] Allergies Allergen (clinical drug ingredient) Drug/Non Drug Allergy documented on EMR Reaction Allergy Type Onset Date Status Penicillin Unknown Drug Allergy Active No Known Food Allergy Unknown Drug Allergy Active REASON FOR VISIT Annual Exam Medications Medication SIG (Take, Route, Fr equency, Duration) Notes Start Date End Date Status clonazePAM 0.5 MG 1 tablet Orally Once a day Active Social History Tobacco Use: Social History Observation Description Date Details (start date - stop date) Never Smoker NA - NA Sex Assigned At : Social History Observation Description Sex Assigned At Male Tobacco Control (Standard) Question Answer Notes Tobacco use: Nonsmoker Additional Findings: Tobacco non-user Aggressive nonsmoker AUDIT-C (Standard) Question Answer Notes Did you have a drink containing alcohol in the p ast year? No Points 0 Interpretation Negative Problems Problem Type SNOMED Code ICD Code Onset Dates Problem Status W/U Status Risk Notes Problem [id number] Chest pain, unspecified type (R07.9) Active confirmed A trial of omeprazole was initiated. He is to call me whenever this happens. If necessary he will have a stress test.There is low suspicion for cardiac disease. Problem [id number] Morbid obesity (E66.01) Active confirmed His body mass index is now 40. I have begun to speak to him about bariatric surgery, participation in the hospital weight loss program, GLP-1 medications as well as oral anorexics. He is going to consider this. Vital Signs Temperature 98.6 degrees Fahrenheit 06/24/19 25 Blood pressure systolic 123 mm Hg 06/24/19 25 Blood pressure diastolic 87 mm Hg 025 Heart Rate 111 /min 06/23/2024 Height 67 in 06/23/2024 Weight 263 lbs 06/23/2024 BMI 41.19 kg/m2 06/23/2024 Encounters Encounter Location Date Provider Diagnosis Abhijit Gilmore III, MD [address] [place] [address] [place] [address] 06/23/2024 Abhijit Gilmore Chest pain, unspecified type R07.9 ; Asperger syndrome F84.5 ; Asthma J45.909 ; Irritable bowel syndrome K58.9 ; Unspecified tinnitus H93.19 ; Nocturia R35.1 ; History of tympanostomy tube placement Z96.22 ; Seborrheic dermatitis L21.9 and Morbid obesity E66.01 Assessments Encounter Date Diagnosis (ICD Code) Assessment Notes Treatment Notes Treatment Clinical Notes 06/23/2024 Chest pain, unspecified type (ICD-10 - R07.9) A trial of omeprazole was initiated. He is to call me whenever this happens. If necessary he will have a stress test.There is low suspicion for cardiac disease. 06/23/2024 Asperger syndrome (ICD-10 - F84.5) He is functioning well and no change in his regimen as necessary. He was continued on his medications. He continues to complete all of the activities of daily living without impairment. 06/23/2024 Asthma (ICD-10 - J45.909) He had no wheezing today and was comfortable breathing room air.Once he has set of wheezing. 06/23/2024 Irritable bowel syndrome (ICD-10 - K58.9) It is likely the right lower quadrant pain was from the orbital bowel syndrome. Examination today was normal and a recent CT scan of the abdomen showed no abnormalities. 06/23/2024 Unspecified tinnitus (ICD-10 - H93.19) The tinnitus has resolved. 06/23/2024 Nocturia (ICD-10 - R35.1) He will be observed to see if the antibiotic reduce his nocturia. 06/23/2024 History of tympanostomy tube placement (ICD-10 - Z96.22) He had tubes inserted when he was a child. The discomfort is persistent although the infection has mostly resolved. He was referred back to ENT. 06/23/2024 Seborrheic dermatitis (ICD-10 - L21.9) He was offered topical and shampoo treatments for the seborrhea but he declined saying he did not wish to take prescription medications.I offered to refer him back to dermatology should he wish but he declined saying several he was a very minor nuisance to him and he did not require prescription medication. Did recommend Selsun Blue shampoo. 06/23/2024 Morbid obesity (ICD-10 - E66.01) His body mass index is now 41. I have begun to speak to him about bariatric surgery, participation in the hospital weight loss program, GLP-1 medications as well as oral anorexics. He is going to consider this. Plan Of Treatment Medication Medication Name Sig Start Date Stop Date Notes clonazePAM 0.5 MG 1 tablet Orally Once a day Pending Test Test Name Order Date Stress Test 06/23/2024 ECG 12 lead EKG 06/23/2024 Next Appt Details Follow Up: 2 Months, Reason: Office visit Provider Name:Abhijit Gilmore , 12/01/2024 10:00:00 AM, [address] [place] [address] [address], [place], [address], Provider Name:Abhijit Gilmore , 06/25/2025 02:45:00 PM, [address] [place] [address] [address], [place], [address], Progress Notes * Jadiel BRYANT JrDOB:[birth year] (38 yo M)Acc No.[id number]:06/23/2024 Progress Notes Patient: Fannie QUINTANILLA Jadiel Clark Jr Provider: Oleg Gilmore MD :1985 A ge:38 Y S ex:Male Date:06/23/2024 Address:[address] [place], [place] [id number] Subjective: * Chief Complaints: * A nnual Exam * HPI: D epression Screening: He returns to the office at the age of 38 for an annual physical examination. He has been free of asthma recently. He is concerned about his father's health and has had more anxiety than usual. He continues with eczema on the scalp and face but does not wish to take any medication for it at this time. He saw urology because of nocturnal urinating and was found to have thickening of the bladder. He is being given medication for this. He has had some episodes of atypical chest pain but this appears to be either esophageal reflux or costochondritis. PHQ-9 L ittle interest or pleasure in doing things?Not at all F eeling down, depressed, or hopeless N ot at all T rouble falling or staying asleep, or sleeping too much N ot at all F eeling tired or having little energy N ot at all P oor appetite or overeating N ot at all F eeling bad about yourself or that you are a failure, or have let yourself or your family down N ot at all T rouble concentrating on things, such as reading the newspaper or watching television N ot at all M oving or speaking so slowly that other people could have noticed; or the opposite, being so fidgety or restless that you have been moving around a lot more than usual N ot at all T houghts that you would be better off or of hurting yourself in some way N ot at all T otal Score 0 C OVID-19 Screening: Questions H ave you had any new onset fever, chills, cough, congestion, sore throat, shortness of breath, muscle aches? N o S MARKEL Questions: SDOH Questions I n the past year have you been worried about losing your housing? N o I n the past year have you or any family members you live with been unable to get any of the following when it was really needed? Check all that apply: N one * ROS: G eneral/Constitutional: pain o nly normal aches and pains. C hills d enies.?Fatigue a dmits. F ever d enies. E NT: Decreased hearing i n both ears. R espiratory: Cough d enies. C ardiovascular: Chest pain with exertion d enies. D yspnea on exertion?denies. S hortness of breath d enies. G astrointestinal: Constipation o ccasional. D ecreased appetite d enies. D iarrhea d enies. H eartburn o ccasional. N ausea d enies. R ectal bleeding d enies. V omiting d enies. H ematology: bruising d enies. p etechiae d enies. S wollen glands n one have been noted. G enitourinary: Frequent urination d enies. M usculoskeletal: Muscle aches d enies. P ainful joints d enies. S ciatica d enies. W eakness d enies. S kin: Itching d enies. R nghia U nchanged seborrheic dermatitis. S kin lesion(s) d enies. N eurologic: Difficulty speaking d enies. D izziness d enies.?Headache d enies. L ow back pain d enies. P sychiatric: Depressed mood d enies. * Medical History: * Surgical History: C olonoscopy, Endoscopy at [facility] [id number] tooth extracted 2013No history * Hospitalization/Major Diagno stic Procedure: N o history * Family History: F ather: alive 64 yrs, Hypertension, hyperlipidemia, obesity, BPH, emphysema, atrial fibrillation. M other: alive 61 yrs, Diabetes mellitus, depression, hyperlipidemia, obesity, asthma, and hearing loss. S iblings: alive, crohns disease. M aternal Grand Mother: colon cancer. M aternal aunt: alive, colon cancer. M aternal Grand Father: diagnosed with DM. 1 brother(s) , 1 sister(s) - healthy. . His brother, Chalino, has Crohn's disease. His sister Makayla has a bipolar disorder. He has no children and is unmarried. He has a personal history of Asperger's syndrome. He is not aware of any other family history of mental illness, substance use disorder or injection. Prostate cancer. * Social History: T obacco Use: T obacco Control (Standard) T obacco use: N onsmoker A dditional Findings: Tobacco non-user A ggressive nonsmoker D rugs/Alcohol: D rugs H ave you used drugs other than those for medical reasons in the past 12 months? N o D rug/Alcohol: A NAVI-C (Standard) D id you have a drink containing alcohol in the past year? N o P oints 0 I nterpretation N egative H e is disabled from Aspercreme syndrome. He is unemployed, single and has no children. He gives no history of any toxic exposures. He neither drinks nor smokes. 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 He also mentioned that he has been trying to manage his weight by reducing his food portions. * Medications: T akingclonazePAM 0.5 MG Tablet 1 tablet Orally Once a day Medication List reviewed and reconciled with the patientTaking clonazePAM 0.5 MG Tablet 1 tablet Orally Once a day Medication List reviewed and reconciled with the patient * Allergies: P enicillinNo Known Food Allergyno[Allergies Verified] Objective: * Vitals: H t: 67, Wt: 263, BMI:41.19, BP: 123/87, HR: 111, Temp: 98.6, Ht-cm: 170.18, Wt- k.29. * Examination: G eneral Examination: GENERAL APPEARANCE: burt jacobs, well nourished, well developed, in no acute distress, calm and relaxed, morbidly obese, man. HEAD: a traumatic, normocephalic. EYES: e sue, perrla, anicteric, conjugate. EARS: n ormal. NOSE: s eptum intact. ORAL CAVITY: n ormal, unremarkable. NECK/THYROID: n o jugular venous distention, no carotid bruit, thyroid normal. LYMPH NODES: n o enlarged lymph nodes,spleen normal. SKIN: n o suspicious lesions, anicteric, Extensive seborrhea scalp forehead and hands. HEART: n o clicks, gallops, murmurs, or rubs, regular rhythm, S1, S2 normal, no s3, or vascular bruits. LUNGS: c lear to auscultation . BREASTS: no masses palpable bilaterally. ABDOMEN: b owel sounds normal, no ascites, no organomegaly, no mass, morbid obesity. RECTAL EXAM: n ot examined. MUSCULOSKELETAL: e xtremities unremarkable, no clubbing, cyanosis or edema. PERIPHERAL PULSES: n ormal. NEUROLOGIC: a lert and oriented, cranial nerves 2-12 grossly intact, deep tendon reflexes 2+ symmetrical, motor strength normal upper and lower extremities, sensory exam intact. PSYCH: a lert, oriented, Asperger's syndrome is unchanged.? Assessment: * Assessment: 1. C hest pain, unspecified type - R07.9 (Primary) N otes :A trial of omeprazole was initiated. He is to call me whenever this happens. If necessary he will have a stress test.There is low suspicion for cardiac disease. 2 . A sperger syndrome - F84.5 N otes :He is functioning well and no change in his regimen as necessary. He was continued on his medications. He continues to complete all of the activities of daily living without impairment. 3 . A sthma - J45.909 N otes :He had no wheezing today and was comfortable breathing room air.Once he has set of wheezing. 4 . 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 Examination today was normal and a recent CT scan of the abdomen showed no abnormalities. 5 . U nspecified tinnitus - H93.19 N otes :The tinnitus has resolved. 6 . N octuria - R35.1 N otes :He will be observed to see if the antibiotic reduce his nocturia. 7 . H istory of tympanostomy tube placement - Z96.22 N otes :He had tubes inserted when he was a child. The discomfort is persistent although the infection has mostly resolved. He was referred back to ENT. 8 . S eborrheic dermatitis - L21.9 N otes :He was offered topical and shampoo treatments for the seborrhea but he declined saying he did not wish to take prescription medications.I offered to refer him back to dermatology should he wish but he declined saying several he was a very minor nuisance to him and he did not require prescription medication. Did recommend Selsun Blue shampoo. 9 . M orbid obesity - E66.01 N otes :His body mass index is now 41. I have begun to speak to him about bariatric surgery, participation in the hospital weight loss program, GLP-1 medications as well as oral anorexics. He is going to consider this. Plan: * Treatment: 2. O thers Continue clonazePAM Tablet, 0.5 MG, 1 tablet, Orally, Once a day. * Procedure Codes: * Preventive Medicine: Counseling: C are goal follow-up plan: Counseling for abnormal BMI given Y es Above Normal BMI Follow-up D ietary management education, guidance, and counseling, Dietary needs education, Exercise promotion: strength training, Exercise promotion: stretching, Feeding regime, Giving encouragement to exercise, Lifestyle education regarding diet, Nutrition / feeding management, Nutrition therapy, Prescribed activity/exercise education, Prescribed diet education, Prescribed dietary intake, Special diet education, Weight monitoring , Intervention, Order not done: Medical or Other reason not done * Follow Up: 2 Months (Reason: Office visit) * Images: * Sign off status: Completed true * Provider: Oleg Gilmore MD Date: 0 06/23/2024 Generated for Janice brown/Wild/Addissmitting on: 0 11/20/2024 12:35 PM EDT History and Physical Notes * HPI (History of Present Illness) Category Sub-Category Detail Notes Depression Screening PHQ-9 Little inte rest or pleasure in doing things: Not at all Feeling down, depressed, or hopeless: No t at all Trouble falling or staying asleep, or sl eeping too much: Not at all Feeling tired or having little energy: N ot at all Poor appetite or overeating: Not at all Feeling bad about yourself o r that you are a failure, or have let yourself or your family down: Not at all Trouble concentrating on thi ngs, such as reading the newspaper or watching television: Not at all Moving or speaking so slowly that other people could have noticed; or the opposite, being so fidgety or restless that you have been moving around a lot more than usual: Not at all Thoughts that you would be b sara off or of hurting yourself in some way: Not at all Total Score: 0 COVID-19 Screening Questions Have you had any new onset fever, chills, cough, congestion, sore throat, shortness of breath, muscle aches?: No SDOH Questions SDOH Questions In the past year have you been worried about losing your housing?: No In the past year have you or any family members you live with been unable to get any of the following when it was really needed? Check all that apply:: None Examination Category Sub-Category Detail Notes General Examination GENERAL APPEARANCE: pleasant , well nourished, well developed, in no acute distress, calm and relaxed, morbidly obese, man HEAD: atraumatic, normocep halic EYES: eomi, perrla, anicte mattie, conjugate EARS: normal NOSE: septum intact NECK/THYROID: no jugular venous di stention, no carotid bruit, thyroid normal HEART: no clicks, gallops, murmurs, or rubs, regular rhythm, S1, S2 normal, no s3, or vascular bruits LUNGS: clear to auscultatio n ABDOMEN: bowel sounds normal, no ascites, no organomegaly, no mass, morbid obesity NEUROLOGIC: alert and oriented, cranial nerves 2-12 grossly intact, deep tendon reflexes 2+ symmetrical, motor strength normal upper and lower extremities, sensory exam intact SKIN: no suspicious lesion s, anicteric, Extensive seborrhea scalp forehead and hands PERIPHERAL PULSES: normal BREASTS: no masses palpable b ilaterally MUSCULOSKELETAL: extremities unremark able, no clubbing, cyanosis or edema LYMPH NODES: no enlarged lymph no bibi,spleen normal RECTAL EXAM: not examined PSYCH: alert, oriented, Asp erger's syndrome is unchanged ORAL CAVITY: normal, unremarkable
--- OUTSIDE RECORDS SUMMARY | 2024-08-18 07:56 | XMS_ITS ---
Author Organization Abhijit Gilmore III, MD Address [address] [place] [address] [place] [address] Care Team Providers Care Manager Report Name Role Phone Dr. Abhijit Gilmore III Primary Care Provider REASON FOR VISIT Needs call back from Social History Sex Assigned At : Social History Observation Description Sex Assigned At Male Encounters Encounter Location Date Provider Diagnosis Abhijit Gilmore III, MD [address] [place] [address] [place] [address] 08/18/2024 Abhijit Gilmore Plan Of Treatment Next Appt Details Provider Name:Abhijit Gilmore , 12/01/2024 10:00:00 AM, [address] [place] [address] [place], [address], Provider Name:Abhijit Gilmore , 06/25/2025 02:45:00 PM, [address] [place] [address] [place], [address], Progress Notes * Jadiel BRYANT JrDOB:[birth year] (38 yo M)Acc No.[id number]:08/18/2024 Patient: Jadiel ANDERSEN Jr :1985 A ge:38 Y S ex:Male Address:[address] [place] [address], [place] [address] * true * Date: Generated for Janice brown/Wild/Addissmitting on: 0 11/20/2024 12:34 PM EDT
--- OUTSIDE RECORDS SUMMARY | 2024-09-01 05:30 | XMS_ITS ---
Author Organization Abhijit Gilmore III, MD Address [address] [place] [address] [place] [address] Care Team Providers Care Vacuum Metalizing Supervisor Name Role Phone Dr. Abhijit Gilmore III Primary Care Provider Allergies Allergen (clinical drug ingredient) Drug/Non Drug Allergy documented on EMR Reaction Allergy Type Onset Date Status Penicillin Unknown Drug Allergy Active No Known Food Allergy Unknown Drug Allergy Active REASON FOR VISIT Anuresis, aspurger Syndrome, Tinnitus, Obesity, March Medications Medication SIG (Take, Route, Fr equency, Duration) Notes Start Date End Date Status Tamsulosin HCl 0.4 MG 1 capsule Orally O nce a day for 30 days 09/01/2024 02/27/2025 Active clonazePAM 0.5 MG 1 tablet Orally Once a day Active Social History Tobacco Use: Social History Observation Description Date Details (start date - stop date) Never Smoker NA - NA Sex Assigned At : Social History Observation Description Sex Assigned At Male Tobacco Control (Standard) Question Answer Notes Tobacco use: Nonsmoker Additional Findings: Tobacco non-user Aggressive nonsmoker Vital Signs Temperature 97.5 degrees Fahrenheit 09/02/19 25 Blood pressure systolic 132 mm Hg 09/02/19 25 Blood pressure diastolic 84 mm Hg 025 Heart Rate 88 /min 09/01/2024 Height 67 in 09/01/2024 Weight 261 lbs 09/01/2024 BMI 40.87 kg/m2 09/01/2024 Encounters Encounter Location Date Provider Diagnosis Abhijit Gilmore III, MD [address] [place] [address] [place] [address] 09/01/2024 Abhijit Gilmore Asperger syndrome F84.5 ; Asthma J45.909 ; Unspecified tinnitus H93.19 ; Morbid obesity E66.01 and Nocturia R35.1 Assessments Encounter Date Diagnosis (ICD Code) Assessment Notes Treatment Notes Treatment Clinical Notes 09/01/2024 Asperger syndrome (ICD-10 - F84.5) He is functioning well and no change in his regimen as necessary. He was continued on his medications. He continues to complete all of the activities of daily living without impairment. 09/01/2024 Asthma (ICD-10 - J45.909) He had no wheezing today and was comfortable breathing room air.Once he has set of wheezing. 09/01/2024 Unspecified tinnitus (ICD-10 - H93.19) The tinnitus has resolved. 09/01/2024 Morbid obesity (ICD-10 - E66.01) His body mass index is now 40. I have begun to speak to him about bariatric surgery, participation in the hospital weight loss program, GLP-1 medications as well as oral anorexics. He is going to consider this. 09/01/2024 Nocturia (ICD-10 - R35.1) He will be observed to see if the antibiotic reduce his nocturia. Plan Of Treatment Medication Medication Name Sig Start Date Stop Date Notes Tamsulosin HCl 0.4 MG 1 capsule Orally O nce a day for 30 days 09/01/2024 02/27/2025 clonazePAM 0.5 MG 1 tablet Orally Once a day Next Appt Details Follow Up: 3 Months, Reason: ov Provider Name:Abhijit Gilmore , 12/01/2024 10:00:00 AM, [address] [place] [address] [place], [address], Provider Name:Abhijit Gilmore , 06/25/2025 02:45:00 PM, [address] [place] [address] [place], [address], Progress Notes * Jadiel BRYANT JrDOB:[birth year] (38 yo M)Acc No.[id number]:09/01/2024 Progress Notes Patient: Jadiel ANDERSEN Jr Provider: Oleg Gilmore MD :1985 A ge:38 Y S ex:Male Date:09/01/2024 Address:[address] [place], [place] [id number] Subjective: * Chief Complaints: * A nuresisaspurger SyndromeTinnitusObesityFebruary * HPI: C OVID-19 Screening: He was referred recently to a urologist for enuresis. She prescribed silodosin but it is not covered by his insurance. It is an alpha-julienne, so I have given him a trial of tamsulosin. His seborrhea is much better today. He expressed an interest in 1 [employer]. It is unlikely that Medicaid will cover this but because he is so obese I have prescribed. The prior authorization is being done. He understands it may be declined. Questions H ave you had any new onset fever, chills, cough, congestion, sore throat, shortness of breath, muscle aches? N o * ROS: G eneral/Constitutional: pain o nly normal aches and pains. C hills d enies.?Fatigue a dmits. F ever d enies. E NT: Decreased hearing T endinitis. R espiratory: Cough d enies. C ardiovascular: Chest pain with exertion d enies. D yspnea on exertion?denies. S hortness of breath d enies. G astrointestinal: Constipation o ccasional. D ecreased appetite d enies. D iarrhea d enies. H eartburn d enies. N ausea d enies. R ectal bleeding d enies. V omiting d enies. H ematology: bruising d enies. p etechiae d enies. S wollen glands n one have been noted. G enitourinary: Frequent urination d enies. M usculoskeletal: Muscle aches d enies. P ainful joints d enies. S ciatica d enies. W eakness d enies. S kin: Itching d enies. R nghia d enies. S kin lesion(s)?Sialorrhea. Head and neck. N eurologic: Difficulty speaking d enies. D izziness d enies.?Headache d enies. L ow back pain d enies. P sychiatric: Depressed mood d enies. * Medical History: * Surgical History: C olonoscopy, Endoscopy at [facility] [id number] tooth extracted history * Hospitalization/Major Diagno stic Procedure: N [...] dditional Findings: Tobacco non-user A ggressive nonsmoker H cindy is disabled from Aspercreme syndrome. He is [...] Objective: * Vitals: H t: 67, Wt: 261, BMI:40.87, BP: 132/84, HR: 88, Temp: 97.5, Ht-cm: 170.18, Wt-k.39. * Examination: G eneral Examination: GENERAL APPEARANCE: p arlene, well nourished, well developed, in no acute distress, calm and relaxed, morbidly obese, man. HEAD: a traumatic, normocephalic. EYES: e sue, perrla, anicteric, conjugate. EARS: n ormal. NOSE: s eptum intact. ORAL CAVITY: n ormal, unremarkable. NECK/THYROID: n o jugular venous distention, no carotid bruit, thyroid normal,, Range of motion normal. LYMPH NODES: n o enlarged lymph nodes,spleen normal. SKIN: n o suspicious lesions, anicteric, Patches of seborrhea for head and scalp. HEART: n o clicks, gallops, murmurs, or [...] sensory exam intact. PSYCH: a lert, oriented, speech clear, good eye contact, cooperative with exam. Assessment: * Assessment: 1. A sperger syndrome - F84.5 (Primary) N otes :He is functioning well and no change in his regimen as necessary. He was continued on his medications. He continues to complete all of the activities of daily living without impairment. 2 . A sthma - J45.909 N otes :He had no wheezing today and was comfortable breathing room air.Once he has set of wheezing. 3 . U nspecified tinnitus - H93.19 N otes :The tinnitus has resolved. 4 . M orbid obesity - E66.01 N otes :His body mass index is now 40. I have begun to speak to him about bariatric surgery, participation in the hospital weight loss program, GLP-1 medications as well as oral anorexics. He is going to consider this. 5 . N octuria - R35.1 N otes :He will be observed to see if the antibiotic reduce his nocturia. Plan: * Treatment: * Procedure Codes: * Preventive Medicine: Counseling: [...] Other reason not done * Follow Up: 3 Months (Reason: ov) * Images: * Sign off status: Completed true * Provider: Oleg Gilmore MD Date: 09/01/2024 Generated for Davidi kevin/Wild/eTransmitting on: 0 11/20/2024 12:35 PM EDT History [...] venous di stention, no carotid bruit, thyroid normal,, Range of motion normal HEART: no clicks, gallops, murmurs, or [...] intact SKIN: no suspicious lesion s, anicteric, Patches of seborrhea for head and scalp PERIPHERAL PULSES: normal BREASTS: no masses palpable b ilaterally MUSCULOSKELETAL: extremities unremark able, no clubbing, cyanosis or edema LYMPH NODES: no enlarged lymph no bibi,spleen normal RECTAL EXAM: not examined PSYCH: alert, oriented, spe ech clear, good eye contact, cooperative with exam ORAL CAVITY: normal, unremarkable
--- OUTSIDE RECORDS SUMMARY | 2024-09-03 06:33 | XMS_ITS ---
Author Organization Abhijit Gilmore III, MD Address [address] [place] [address] [place] [address] Care Team Providers Care Gear Hobber Name Role Phone Dr. Abhijit Gilmore III Primary Care Provider REASON FOR VISIT doesnt know which med to take Social History Sex Assigned At : Social History Observation Description Sex Assigned At Male Encounters Encounter Location Date Provider Diagnosis Abhijit Gilmore III, MD [address] [place] [address] [place] [address] 09/03/2024 Abhijit Gilmore Plan Of Treatment Next Appt Details Provider Name:Abhijit Gilmore , 12/01/2024 10:00:00 AM, [address] [place] [address] [place], [address], Provider Name:Abhijit Gilmore , 06/25/2025 02:45:00 PM, [address] [place] [address] [place], [address], Progress Notes * Jadiel BRYANT JrDOB:[birth year] (38 yo M)Acc No.[id number]:09/03/2024 Patient: Jadiel ANDERSEN Jr :1985 A ge:38 Y S ex:Male Address:[address] [place] [address], [place] [address] * true * Date: Generated for Janice brown/Wild/Addissmitting on: 0 11/20/2024 12:34 PM EDT
--- OUTSIDE RECORDS SUMMARY | 2024-09-29 06:00 | XMS_ITS ---
Author Organization Abhijit Gilmore III, MD Address [address] [place] [address] [place] [address] Care Team Providers Care Drainlayer Name Role Phone Dr. Abhijit Gilmore III Primary Care Provider Allergies Allergen (clinical drug ingredient) Drug/Non Drug Allergy documented on EMR Reaction Allergy Type Onset Date Status Penicillin Unknown Drug Allergy Active No Known Food Allergy Unknown Drug Allergy Active Reason For Referral Reason severe seborrheic de rmatitis evaluate and treatment Diagnosis 1 Seborrheic dermatiti s (L21.9) Referral Organization Abhijit Gilmore III, MD Referring Provider First Name Abhijit Referring Provider Last Name Deirdre Referring Provider Speciality Internal M edicine Referred Provider [facility] Referred Provider Specialty Dermatology General Notes Crystal Solorzano CMA 10/02 02:48:56 PM >ref/demo/progress note faxed to Rashad SNELL Suzanne CMA 11/02/2024 03:27:06 PM > Called [facility] they stated to have patient call office and they will make him an appt . I called patient and gave him the phone number to call them to set up appt Referral Priority Routine REASON FOR VISIT Asthma, Morbid obesity, Tendinitis, Seborrhea Medications Medication SIG (Take, Route, Fr equency, Duration) Notes Start Date End Date Status clonazePAM 0.5 MG 1 tablet Orally Once a day Active Tamsulosin HCl 0.4 MG 1 capsule Orally Once a day 09/01/2024 Active Social History Tobacco Use: Social History Observation Description Date Details (start date - stop date) Never Smoker NA - NA Sex Assigned At : Social History Observation Description Sex Assigned At Male Tobacco Control (Standard) Question Answer Notes Tobacco use: Nonsmoker Additional Findings: Tobacco non-user Aggressive nonsmoker Vital Signs Temperature 97.3 degrees Fahrenheit 09/30/19 25 Blood pressure systolic 123 mm Hg 09/30/19 25 Blood pressure diastolic 83 mm Hg 025 Heart Rate 71 /min 09/29/2024 Height 67 in 09/29/2024 Weight 260 lbs 09/29/2024 BMI 40.72 kg/m2 09/29/2024 Encounters Encounter Location Date Provider Diagnosis Abhijit Gilmore III, MD [address] [place] [address] [address] [place], [place] [address] 09/29/2024 Abhijit Gilmore Obesity E66.9 ; Asth ma J45.909 ; Asperger syndrome F84.5 ; Irritable bowel syndrome K58.9 ; Ureterolithiasis N20.1 and History of tympanostomy tube placement Z96.22 Assessments Encounter Date Diagnosis (ICD Code) Assessment Notes Treat ment Notes Treatment Clinical Notes 09/29/2024 Obesity (ICD-10 - E66.9) His weight has been stable at 260 pounds. His body mass index is 40. We discussed his weight and diet today. We reviewed his weight loss strategy and made a plan to lose weight at a rate of 1 pound per week. Follow-up visit was arranged. I have begun to discuss GLP-1 drugs with him. 09/29/2024 Asthma (ICD-10 - J45.909) He had no wheezing today and was comfortable breathing room air.Once he has set of wheezing. 09/29/2024 Asperger syndrome (ICD-10 - F84.5) He is functioning well and no change in his regimen as necessary. He was continued on his medications. He continues to complete all of the activities of daily living without impairment. 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 Examination today was normal and a recent CT scan of the abdomen showed no abnormalities. 09/29/2024 Ureterolithiasis (ICD-10 - N20.1) He may have passed a kidney stone judging by his symptoms but he has no renal colic today and his urine has been clear. Observation without treatment will continue. He was advised to stay hydrated. 09/29/2024 History of tympanost martita tube placement (ICD-10 - Z96.22) He had tubes inserted when he was a child. The discomfort is persistent although the infection has mostly resolved. He was referred back to ENT. Plan Of Treatment Medication Medication Name Sig Start Date Stop Date Notes clonazePAM 0.5 MG 1 tablet Orally Once a day Tamsulosin HCl 0.4 MG 1 capsule Orally Once a day 09/02/19 25 Referrals Referral Date Details 09/29/2024 09/29/2024, severe s eborrheic dermatitis evaluate and treatment[facility] Next Appt Details Follow Up: 2 Months, Reason: ov no testing Provider Name:Abhijit Gilmore , 12/01/2024 10:00:00 AM, [address] [place] [address] [address], [place], [address], Provider Name:Abhijit Gilmore , 06/25/2025 02:45:00 PM, [address] [place] [address] [address], [place], [address], Progress Notes * Jadiel BRYANT JrDOB:[birth year] (38 yo M)Acc No.[id number]:09/29/2024 Progress Notes Patient: Fannie ORLINCHRISTINE Jadiel Clark Jr Provider: Oleg Gilmore MD :1985 A ge:38 Y S ex:Male Date:09/29/2024 Address:[address] [place], [place] [id number] Subjective: * Chief Complaints: * A sthmaMorbid obesityTendinitisSeborrhea * HPI: C OVID-19 Screening: . He returns for his annual visit. He has noticed some dizziness with changes in position such as abrupt standing since he began tamsulosin. We discussed how to compensate for this at some length today. He is going back to the urologist in near future and wants to discuss a vasectomy. His appointment is in October.He denies any chest pain or shortness of breath or bleeding.Comprehensive blood work is not available but was ordered today with an electrocardiogram which he said he will do it or this week. Questions H ave you had any new [...] have been noted. G enitourinary: Frequent urination o nce a night. M usculoskeletal: Muscle aches d enies. P ainful joints d enies. S ciatica d enies. W eakness d enies. S kin: Itching d enies. R nghia d enies. S kin lesion(s)?denies. N eurologic: Difficulty speaking d enies. D izziness d enies.?Headache d enies. L ow back pain d enies. P sychiatric: Depressed mood d enies. * Medical History: * Surgical History: C olonoscopy, Endoscopy at [facility] [id number] tooth extracted 2013No history * Hospitalization/Major Diagno [...] Tablet 1 tablet Orally Once a day Tamsulosin HCl 0.4 MG Capsule 1 capsule Orally Once a day , stop date 02/27/2025Medication List reviewed and reconciled with the patientTaking clonazePAM 0.5 MG Tablet 1 tablet Orally Once a day Taking Tamsulosin HCl 0.4 MG Capsule 1 capsule Orally Once a day , stop date 02/27/2025Medication List reviewed and reconciled with the patient * Allergies: P enicillinNo Known Food Allergyno[Allergies Verified] Objective: * Vitals: H t: 67, Wt: 260, BMI:40.72, BP: 123/83, HR: 71, Temp: 97.3, Ht-cm: 170.18, Wt-k.93. * Examination: G eneral Examination: GENERAL APPEARANCE: p arlene, well nourished, well developed, in no acute distress, calm and relaxed: morbidly obese: man. HEAD: a traumatic, normocephalic. EYES: e sue, perrla, anicteric, conjugate. EARS: N ormal anatomy. NOSE: s eptum intact. ORAL CAVITY: n ormal, unremarkable. NECK/THYROID: n o jugular venous distention, no carotid bruit, thyroid normal. LYMPH NODES: n o enlarged lymph nodes,spleen normal. SKIN: n o suspicious lesions, anicteric, Mild seborrhea.? HEART: n o clicks, gallops, murmurs, or rubs, regular rhythm, S1, S2 normal, no s3, or vascular bruits. LUNGS: c lear to auscultation . BREASTS: no masses palpable bilaterally. ABDOMEN: b owel sounds normal, no ascites, no organomegaly, no mass: morbid obesity. RECTAL EXAM: n ot examined. MUSCULOSKELETAL: e xtremities unremarkable, no clubbing, cyanosis or edema. PERIPHERAL PULSES: n ormal. NEUROLOGIC: a lert and oriented, cranial nerves 2-12 grossly intact, deep tendon reflexes 2+ symmetrical, motor strength normal upper and lower extremities, sensory exam intact. PSYCH: a lert, oriented. Assessment: * Assessment: 1. O besity - E66.9 (Primary) N otes :His weight has been stable at 260 pounds. His body mass index is 40. We discussed his weight and diet today. We reviewed his weight loss strategy and made a plan to lose weight at a rate of 1 pound per week. Follow-up visit was arranged. I have begun to discuss GLP-1 drugs with him. 2 . A sthma - J45.909 N otes :He had no wheezing today and was comfortable breathing room air.Once he has set of wheezing. 3 . A sperger syndrome - F84.5 N otes :He is functioning well and no change in his regimen as necessary. He was continued on his medications. He continues to complete all of the activities of daily living without impairment. 4 . 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 Examination today was normal and a recent CT scan of the abdomen showed no abnormalities. 5 . U reterolithiasis - N20.1 N otes :He may have passed a kidney stone judging by his symptoms but he has no renal colic today and his urine has been clear. Observation without treatment will continue. He was advised to stay hydrated. 6 . H istory of tympanostomy tube placement - Z96.22 N otes :He had tubes inserted when he was a child. The discomfort is persistent although the infection has mostly resolved. He was referred back to ENT. Plan: * Treatment: * Procedure Codes: * [...] done * Follow Up: 2 Months (Reason: ov no testing) * Images: * Sign off status: Completed true * Provider: Oleg Gilmore MD Date: 0 09/29/2024 Generated for Janice brown/Wild/Addissmitting on: 0 11/20/2024 12:34 PM EDT History and Physical Notes * HPI (History of Present Illness) Category Sub-Category Detail Notes COVID-19 Screening Questions Have you had any new onset fever, chills, cough, congestion, sore throat, shortness of breath, muscle aches?: No Examination Category Sub-Category Detail Notes General Examination GENERAL APPEARANCE: pleasant , well nourished, well developed, in no acute distress, calm and relaxed: morbidly obese: man HEAD: atraumatic, normocep halic EYES: eomi, perrla, anicte mattie, conjugate EARS: Normal anatomy NOSE: septum intact NECK/THYROID: no jugular venous di stention, no carotid bruit, thyroid normal HEART: no clicks, gallops, murmurs, or rubs, regular rhythm, S1, S2 normal, no s3, or vascular bruits LUNGS: clear to auscultatio n ABDOMEN: bowel sounds normal, no ascites, no organomegaly, no mass: morbid obesity NEUROLOGIC: alert and oriented, cranial nerves 2-12 grossly intact, deep tendon reflexes 2+ symmetrical, motor strength normal upper and lower extremities, sensory exam intact SKIN: no suspicious lesion s, anicteric, Mild seborrhea PERIPHERAL PULSES: normal BREASTS: no masses palpable b ilaterally MUSCULOSKELETAL: extremities unremark able, no clubbing, cyanosis or edema LYMPH NODES: no enlarged lymph no bibi,spleen normal RECTAL EXAM: not examined PSYCH: alert, oriented ORAL CAVITY: normal, unremarkable Consultation Request Notes Referral Date Referring Provider Referred Provider Not es 09/29/2024 Abhiijt [facility] severe seborrheic dermatitis evaluate and treatment
--- NOTE | 2024-11-20 11:24 | MHC.OFFVIS ---
Intake Visit Reasons: 6m/PVR/discuss procedure Intake Note: Patient is present for 6m/PVR/discuss procedure Urology Medication:NONE Antibiotic Allergy:PENICILLINS Blood Thinner:NONE PVR:22ml Special Services Coordinator Required: No Allergies Penicillins Allergy (Mild, Verified 11/20/24 11:24) Unknown HPI Comments Details: 11/20/24--Jadiel is a 39-year-old male who has a history of Chris Asperger's syndrome comorbidity obesity he has been monitored due to urinary s 25 and prescribed Rapaflo he is taking currently VESIcare ymptoms of urgency as well as weak urinary stream he was last seen in the office April. History of Present Illness The patient is a 39-year-old male presenting with urinary symptoms and a request for vasectomy consultation. He has a history of Asperger syndrome and obesity, which may contribute to his overall health management challenges. The urinary symptoms include urgency and weak urinary stream, which have been ongoing and were previously managed with medication. He was prescribed Rapaflo, which was denied by insurance, and subsequently Vesicare was prescribed, which he reports has improved his symptoms. The patient expressed interest in a vasectomy as a permanent form of contraception, indicating he does not wish to have children. Vasectomy procedure was discussed at length with the patient. He was informed that vasectomy is a safe, permanent, and effective form of control but there are risks involved. It may involve risk of hematoma, procedure failure which is rare, sperm granuloma which may cause mild pain, and congestion which may cause sense of pressure and generally resolves after several weeks. 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 The procedure was discussed in detail, including the process, potential side effects, and the option to perform it in the office or under sedation. Plan 1. Overactive Bladder - Continue Vesicare as it has improved symptoms. - Monitor caffeine intake and schedule regular bathroom visits to manage symptoms. 2. Vasectomy Consultation - Discussed vasectomy procedure, including risks and benefits. - Patient consented to the procedure, to be performed in the office. 05/25/24---Jadiel is a 38-year-old male, history of Asperger's syndrome, obesity, initially evaluated 03/19/2024 due to complaints of dysuria and urinary leakage at night, states symptoms have been for about 4 months. He states that he uses cranberry juice and this helps with the urinary discomfort. He denies urinary leakage during the daytime. He states he drinks about a gallon of water daily including 2 cups of tea, herbal tea before bedtime. During his last visit we discussed his fluid intake. I have discussed cutting back on water intake in stopping fluid intake by 19:00. He states he is not sexually active. He was empirically started on doxycycline for irritative UTI symptoms and nonspecific urethritis. Renal bladder ultrasound was ordered. I have discussed results there is a small simple renal cyst there is bladder wall thickening. I will trial an alpha-juleinne. Rapaflo 8 mg daily discussed side effects to include stuffy nose, headache, retrograde ejaculation follow-up in 6 months. 03/19/24--Jadiel is a 38-year-old male, history of Asperger's syndrome, obesity, here for evaluation due to complaints of dysuria and urinary leakage at night, states symptoms have been for about 4 months. He states that he uses cranberry juice and this helps with the urinary discomfort. He denies urinary leakage during the daytime. He states he drinks about a gallon of water daily including 2 cups of tea, herbal tea before bedtime. He also has water at his bed and we will drink water few wakes up during the night because he feels dry. I have discussed cutting back on water intake in stopping fluid intake by 19:00. He states he is not sexually active. Urinalysis is negative for blood or leukocytes. Will trial doxycycline b.i.d. for nonspecific urethritis. Check renal/bladder ultrasound. [facility] Medical History Dysuria Morbid obesity Elevated LDL cholesterol level Aspergers' syndrome IBS (irritable bowel syndrome) Asthma Surgical History History of colonoscopy Family History Father HTN (hypertension) Hyperlipidemia Obesity BPH (benign prostatic hyperplasia) Emphysema lung Chronic a-fib Mother Diabetes mellitus Depression Hyperlipidemia Obesity Asthma Review of Systems Const All systems reviewed & are unremarkable except as noted in HPI and below Reports no additional complaints Eyes Reports no additional complaints ENT Reports no additional complaints Card Reports no additional complaints Resp Reports no additional complaints GI Reports no additional complaints Reports as per HPI Musc Reports no additional complaints Skin/Breast Reports system reviewed and no additional complaints, except as documented Neuro Reports no additional complaints Psych Reports no additional complaints Endo Reports no additional complaints Dav/Lymph Reports no additional complaints Aller/Immun Reports no additional complaints Office Procedures Post Void Residual Post Residual Void Post Void Residual (PVR): 22 [id number]-[id number] Void Residual by ultrasound Results Reviewed Results Reviewed: Date of Service: 05/15/24 Procedure(s): US retroperitoneal comp EXAMINATION: US RETROPERITONEUM HISTORY: R35.0 - Frequency of micturition TECHNIQUE: Real-time grayscale ultrasound imaging of the kidneys was performed and images were reviewed. COMPARISON: There are no prior studies for comparison. FINDINGS: Right kidney: The right kidney measures 12.9 x 5.8 x 5.8 cm. Renal parenchymal echotexture and thickness are normal. There is a 1.5 x 1.3 x 1.2 cm cyst at the lower pole. There is no hydronephrosis or renal calculi. Left Kidney: The left kidney measures 12.5 x 6.1 x 5.2 cm. Renal parenchymal echotexture and thickness are normal. There are no masses. There is no hydronephrosis or renal calculi. There is debris in the urinary bladder.. Bilateral ureteral jets are identified. Before voiding, the urinary bladder measured 9.5 x 15.5 x 8.0 cm, for an estimated volume of 617 mL. After voiding, the urinary bladder measured 2.2 x 1.1 x 2.7 cm, for an estimated volume of 3 mL. The collapsed urinary bladder demonstrates wall thickening measuring up to 10 mm. The prostate measures 3.5 x 3.7 x 4.0 cm. IMPRESSION: 1. Debris in the urinary bladder. The collapsed urinary bladder demonstrates wall thickening. 2. 1.5 cm right lower pole renal cyst. 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 Overactive Bladder - Continue Vesicare as it has improved symptoms. - Monitor caffeine intake and schedule regular bathroom visits to manage symptoms. 2. Vasectomy Consultation - Discussed vasectomy procedure, including risks and benefits. - Patient consented to the procedure, to be performed in the office. Orders: Orders AMB Post Void Residual by ultrasound 11/20/24 N32.89 - Other specified disorders of bladder, R30.0 - Dysuria, R35.0 - Frequency of micturition AMB Urinalysis Automated 11/20/24 N3.89 - Other specified disorders of bladder, R30.0 - Dysuria, R32 - Unspecified urinary incontinence, R35.0 - Frequency of micturition Medications: Refilled solifenacin (Vesicare) 5 mg PO DAILY 90 tabs 2RF Patient Instructions: The patient had an opportunity to ask questions regarding treatment plan. The patient expressed understanding and agreement with the above treatment plan. The patient is aware they should contact our office by phone for worsening of their current condition or the appearance of new symptoms. Compliance is encouraged with any medications and followup testing that is ordered. It is a privilege to be allowed the opportunity to participate in the urologic care of your patient. If you have any questions or concerns regarding treatment for the above conditions please do not hesitate to contact me. The office telephone contact is [phone]. This note is constructed in part using voice recognition software. While every effort has been made to ensure accuracy paint mixer hand errors may have been included. Yours sincerely, Dedrick Bland MD Scribe Plan - Not visible on output: Patient was informed and verbally consented to the use of an ambient scribe for clinic note documentation during this visit. Coding Level of Care Code Est Pt Level 4 (08571) Complex EM visit Add On G2211 Diagnoses Urinary frequency R35.0 Spastic pelvic floor syndrome K59.02 Bladder wall thickening N32.89 Renal cyst N28.1 Encounter for vasectomy counseling Z30.09 CPT Codes Post Residual Void - PVR CPT Code: 11126-Ibsb Void Residual by ultrasound ([id number])
--- OUTSIDE RECORDS SUMMARY | 2024-11-20 12:35 | XMS_ITS | Patient Health Record ---
Author Organization Abhijit Gilmore III, MD Address [address] [place] [address] [place] [address] Care Team Providers Care Thread Inspector Name Role Phone Dr. Abhijit Gilmore III Primary Care Provider Allergies Allergen (clinical drug ingredient) Drug/Non Drug Allergy documented on EMR Reaction Allergy Type Onset Date Status Penicillin Unknown Drug Allergy Active No Known Food Allergy Unknown Drug Allergy Active Results Component Value Reference Range Notes Complete Blood Count Auto Di ff Reviewed date:03/12/2024 01:23:20 PM Interpretation: Performing Lab:[facility], [address] [place] [address] Notes/Report: White Blood Count 6.3 4.8-10.8 X10*3/uL [...] te Reviewed date:03/12/2024 01:23:20 PM Interpretation: Performing Lab:[address] [address] Notes/Report: Erythrocyte Sedimentation Rate 4 0-15 MM/HR Patients with polycythemia and many hemoglobin abnormalities may have depressed sed rates whereas patients with anemia may have elevated sed rates. Comprehensive [place]. Panel Fa st Reviewed date:03/12/2024 01:23:20 PM Interpretation: Performing Lab:[address] [address] Notes/Report: Sodium 140 135-145 mmol/L Potassium 4.1 [...] Panel Reviewed date:03/12/2024 01:23:20 PM Interpretation: Performing Lab:[address] [address] Notes/Report: Triglycerides 182 <150 mg/dL Desirable Triglyceride: [...] Antigen Reviewed date:03/12/2024 01:23:20 PM Interpretation: Performing Lab:[address] [address] Notes/Report: Prostate Specific Antigen 0.50 <0.05-4.0 ng/mL PSA methodology: Hernández Alinity i Chemiluminescent Microparticle Immunoassay (CMIA) US retroperitoneal comp Reviewed date:05/16/2024 06:00:35 AM Interpretation: Performing Lab: Notes/Report: [address] [address] Ultrasound Report Signed Patient: Jadiel Bryant MR#: [id number] 1542 : 1985 Acct:[id number] Age/Sex: 38 / M ADM Date: 05/15/24 Loc: HO.US Attending Dr: Dedrick Bland MD Ordering Physician: Dedrick Bland MD Date of Service: 05/15/24 Procedure(s): US retroperitoneal comp Accession Number(s): [id number] cc: Dedrick Bland MD; Abhijit Gilmore MD [...] 05/15/24 1101 DD/ 1030 TD/TT: 05/15/24 1037 Sports Equipment Supervisor: [place] [address] Ultrasound Report Signed Patient: Kashif Bryant MR#: [id number] : 1985 Acct:[id number] Age/Sex: 38 / M ADM Date: 05/15/24 Loc: HO.US Attending Dr: Dedrick Bland MD Ordering Physician: Dedrick Bland MD Date of Service: 05/15/24 Procedure(s): US retroperitoneal comp Accession Number(s): [id number] cc: Giovanny Bland MD; Abhijit Gilmore MD [...] 05/15/24 1101 DD/ 1030 TD/TT: 05/15/24 1037 Sports Equipment Supervisor: Reason For Referral Reason Consult and Treat Dysuria for 2 weeks Diagnosis 1 Dysuria (R30.0) Diagnosis 2 Enuresis (R32) Referral Organization Abhijit Gilmore III, MD Referring Provider First Name Abhijit Referring Provider Last Name Gilmore Referring Provider Speciality Internal edicine Referred Provider [facility], Urology Referred Provider Specialty Urology General Notes Doris Laughlin 12/01 11:08:38 AM > referral faxed with telephone encounter Referral Priority Routine Referral Appointment Date 03/19/2024 Reason severe seborrheic de rmatitis evaluate and treatment Diagnosis 1 Seborrheic dermatiti s (L21.9) Referral Organization Abhijit Gilmore III, MD Referring Provider First Name Abhijit Referring Provider Last Name Deirdre Referring Provider Speciality Internal edicine Referred Provider [facility] ([place]) Referred Provider Specialty Dermatology General Notes Crystal Solorzano CMA 10/02 02:48:56 PM >ref/demo/progress note faxed to Rashad SNELL Suzanne CMA 11/02/2024 03:27:06 PM > Called [facility] they stated to have patient call office and they will make him an appt . I called patient and gave him the phone number to call them to set up appt Referral Priority Routine Medications Medication SIG (Take, Route, Fr equency, Duration) Notes Start Date End Date Status clonazePAM 0.5 MG 1 tablet Orally Once a day Active Tamsulosin HCl 0.4 MG 1 capsule Orally Once a day 09/01/2024 Active Immunizations Vaccine Route Administration Date Status [...] Problem Status W/U Status Risk Notes Problem 425279606 Obesity (E66.9) Active confirmed His weight has been stable at 260 pounds. His body mass index is 40. We discussed his weight and diet today. We reviewed his weight loss strategy and made a plan to lose weight at a rate of 1 pound per week. Follow-up visit was arranged. I have begun to discuss GLP-1 drugs with him. Problem 399806026 Asthma (J45.909) Active confirmed He had no wheezing today and was comfortable breathing room air.Once he has set of wheezing. Problem 25433364 Irritable bowel syndrome (K58.9) Active confirmed It is likely the right lower quadrant pain was from the orbital bowel syndrome. Examination today was normal and a recent CT scan of the abdomen showed no abnormalities. Problem 690381283 Nocturia (R35.1) Active confirmed He will be observed to see if the antibiotic reduce his nocturia. Problem 97441642 Penicillin allergy (Z88.0) Active confirmed Problem 627101278 Morbid obesity (E66.01) Active confirmed His body mass index is now 40. I have begun to speak to him about bariatric surgery, participation in the hospital weight loss program, GLP-1 medications as well as oral anorexics. He is going to consider this. Problem 03796888 Asperger syndrome (F84.5) Active confirmed He is functioning well and no change in his regimen as necessary. He was continued on his medications. He continues to complete all of the activities of daily living without impairment. Problem 59754347 Unspecified tinnitus (H93.19) Active confirmed The tinnitus has resolved. Problem 23599050 Unspecified eustachian tube disorder (H69.90) Active confirmed He has had no difficulty with hearing lately. His free of any symptoms at this time. Problem 096001953 History of tympanostomy tube placement (Z96.22) Active confirmed He had tubes inserted when he was a child. The discomfort is persistent although the infection has mostly resolved. He was referred back to ENT. Problem 71002779 Chest pain, unspecified type (R07.9) Active confirmed A trial of omeprazole was initiated. He is to call me whenever this happens. If necessary he will have a stress test.There is low suspicion for cardiac disease. Problem 49330430 Seborrheic dermatitis (L21.9) Active confirmed He was [...] Selsun Blue shampoo. Vital Signs Heart Rate 71 /min 09/29/2024 Temperature 97.3 degrees Fahrenheit 09/29/2024 Blood pressure diastolic 83 mm Hg 09/29/2024 Height 67 in 09/29/2024 Blood pressure systolic 123 mm Hg 09/29/2024 Weight 260 lbs 09/29/2024 BMI 40.72 kg/m2 09/29/2024 Encounters Encounter Location Date Provider Diagnosis Abhijit Gilmore III, MD [address] [place] [address] [place] [address] 12/11/2023 Abhijit Gilmore Enuresis R32 ; Obesi ty (BMI 30.0-34.9) E66.9 ; Asthma J45.909 ; Asperger syndrome F84.5 and Irritable bowel syndrome K58.9 Abhijit Gilmore III, MD [address] [place] [address] [place] [address] 01/22/2024 Abhijit Gilmore Obesity (BMI 30.0-34 .9) E66.9 ; Asthma J45.909 ; Asperger syndrome F84.5 and Irritable bowel syndrome K58.9 Abhijit Gilmore III, MD [address] [place] [address] [place] [address] 02/28/2024 Abhijit Gilmore Obesity E66.9 ; Fati riki R53.83 ; Asperger syndrome F84.5 ; Asthma J45.909 ; Unspecified tinnitus H93.19 and Enuresis R32 Abhijit Gilmore III, MD [address] [place] [address] [place] [address] 03/13/2024 Abhijit Gilmore Obesity E66.9 ; Asth ma J45.909 ; Asperger syndrome F84.5 ; Obesity (BMI 30.0-34.9) E66.9 ; Irritable bowel syndrome K58.9 and Unspecified tinnitus H93.19 Abhijit Gilmore III, MD [address] [place] [address] [place] [address] 03/27/2024 Abhijit Gilmore Obesity E66.9 ; Noct uria R35.1 ; Asthma J45.909 and Asperger syndrome F84.5 Abhijit Gilmore III, MD [address] [place] [address] [place] [address] 04/23/2024 Abhijit Gilmore Seborrheic dermatiti s L21.9 ; Obesity E66.9 ; Asthma J45.909 and Asperger syndrome F84.5 Abhijit Gilmore III, MD [address] [place] [address] [place] [address] 06/23/2024 Abhijit Gilmore Chest pain, unspecif ied type R07.9 ; Asperger syndrome F84.5 ; Asthma J45.909 ; Irritable bowel syndrome K58.9 ; Unspecified tinnitus H93.19 ; Nocturia R35.1 ; History of tympanostomy tube placement Z96.22 ; Seborrheic dermatitis L21.9 and Morbid obesity E66.01 Abhijit Gilmore III, MD [address] [place] [address] [place] [address] 09/01/2024 Abhijit Gilmore Asperger syndrome F8 4.5 ; Asthma J45.909 ; Unspecified tinnitus H93.19 ; Morbid obesity E66.01 and Nocturia R35.1 Abhijit Gilmore III, MD [address] [place] [address] [place] [address] 09/29/2024 Abhijit Gilmore Obesity E66.9 ; Asth ma J45.909 ; Asperger syndrome F84.5 ; Irritable bowel syndrome K58.9 ; Ureterolithiasis N20.1 and History of tympanostomy tube placement Z96.22 Abhijit Gilmore III, MD [address] [place] [address] [place] [address] 12/02/2023 Abhijit Gilmore UTI symptoms R39.9 Abhijit Gilmore III, MD [address] [place] [address] [place] [address] 12/26/2023 Abhijit Gilmore III, MD [address] [place] [address] [place] [address] 02/28/2024 Abhijit Gilmore III, MD [address] [place] [address] [place] [address] 08/18/2024 Abhijit Gilmore III, MD [address] [place] [address] [address] [place], [place] [address] 09/03/2024 Abhijit Gilmore Assessments Encounter Date Diagnosis (ICD Code) Assessment Notes Treat ment Notes Treatment Clinical Notes 12/11/2023 Obesity (BMI 30.0-34.9) (ICD-10 - E66.9) [...] medication. Did recommend Selsun Blue shampoo. 06/23/2024 Asperger syndrome (ICD-10 - F84.5) He is functioning well and no change in his regimen as necessary. He was continued on his medications. He continues to complete all of the activities of daily living without impairment. 06/23/2024 Chest pain, unspecified type (ICD-10 - R07.9) A trial of omeprazole was initiated. He is to call me whenever this happens. If necessary he will have a stress test.There is low suspicion for cardiac disease. 09/01/2024 Asthma (ICD-10 - J45.909) He had no wheezing today and was comfortable breathing room air.Once he has set of wheezing. 09/01/2024 Asperger syndrome (ICD-10 - F84.5) He is functioning well and no change in his regimen as necessary. He was continued on his medications. He continues to complete all of the activities of daily living without impairment. 09/29/2024 Obesity (ICD-10 - E66.9) His weight [...] room air.Once he has set of wheezing. 12/02/2023 UTI symptoms (ICD-10 - R39.9) 12/11/2023 Asthma (ICD-10 - J45.909) He had [...] air.Once he has set of wheezing. 06/23/2024 Asthma (ICD-10 - J45.909) He had no wheezing today and was comfortable breathing room air.Once he has set of wheezing. 09/01/2024 Unspecified tinnitus (ICD-10 - H93.19) The tinnitus has resolved. 09/29/2024 Asperger syndrome (ICD-10 - F84.5) He is functioning well and no change in his regimen as necessary. He was continued on his medications. He continues to complete all of the activities of daily living without impairment. 12/11/2023 Asperger syndrome (ICD-10 - F84.5) He [...] activities of daily living without impairment. 06/23/2024 Irritable bowel syndrome (ICD-10 - K58.9) It is likely the right lower quadrant pain was from the orbital bowel syndrome. Examination today was normal and a recent CT scan of the abdomen showed no abnormalities. 09/01/2024 Morbid obesity (ICD- 10 - E66.01) His body mass index is now 40. I have begun to speak to him about bariatric surgery, participation in the hospital weight loss program, GLP-1 medications as well as oral anorexics. He is going to consider this. 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 Examination today was normal and a recent CT scan of the abdomen showed no abnormalities. 12/11/2023 Irritable bowel syndrome (ICD-10 - K58.9) [...] - H93.19) The tinnitus has resolved. 09/01/2024 Nocturia (ICD-10 - R35.1) He will be observed to see if the antibiotic reduce his nocturia. 09/29/2024 Ureterolithiasis (ICD-10 - N20.1) He may have passed a kidney stone judging by his symptoms but he has no renal colic today and his urine has been clear. Observation without treatment will continue. He was advised to stay hydrated. 02/28/2024 Enuresis (ICD-10 - R32) He has no history of this in the past. I referred him to urology for evaluation. 03/13/2024 Unspecified tinnitus (ICD-10 - H93.19) The tinnitus has resolved. 06/23/2024 Nocturia (ICD-10 - R35.1) He will be observed to see if the antibiotic reduce his nocturia. 09/29/2024 History of tympanostomy tube placement (ICD-10 - Z96.22) He had tubes inserted when he was a child. The discomfort is persistent although the infection has mostly resolved. He was referred back to ENT. 06/23/2024 History of tympanostomy tube placement (ICD-10 - Z96.22) He had tubes inserted when he was a child. The discomfort is persistent although the infection has mostly resolved. He was referred back to ENT. 06/23/2024 Seborrheic dermatiti s (ICD-10 - L21.9) He [...] recommend Selsun Blue shampoo. 06/23/2024 Morbid obesity (ICD- 10 - E66.01) His body mass index is now 41. I have begun to speak to him about bariatric surgery, participation in the hospital weight loss program, GLP-1 medications as well as oral anorexics. He is going to consider this. Plan Of Treatment Pending Test Test Name [...] 02/28/2024 SED RATE (ESR) 03/13/2019 URINALYSIS (UA) 09/30/2017 URINALYSIS (UA) 12/02/2023 URINALYSIS (UA) 12/17/2019 URINE CULTURE 12/17/2019 URINE CULTURE 09/30/2017 Stress Test 06/23/2024 CBC WITH AUTO DIFF 02/28/2024 CBC WITH AUTO DIFF 01/22/2024 Lipid Panel 02/28/2024 Lipid Panel 01/22/2024 Urine Culture 12/02/2023 ECG 12 lead EKG 06/23/2024 Next Appt Details Provider Name:Abhijit Vital Deirdre , 12/01/2024 10:00:00 AM, [address] [place] [address] [place], [address], Provider Name:Abhijit Gilmore , 06/25/2025 02:45:00 PM, [address] [facility] [address], [place], [address], Insurance Providers Payer Name Payer Address Payer Phone Subscriber Number Group Number Insured Name Patient Relationship to Insured Coverage Start Date Coverage End Date MEDICARE NGS [address] [place] [address] [id number] Jadiel Mcdowell Self - patient is the insured MEDICA[place] [address] [place] [id number] Jadiel Mcdowell Self - patient is the insured Medical (General) History Medical History History ICD Code Irritable bowel syndrome 564.1 asthma Asperger's syndrome elevated LDL allergic to penicillin Morbid obesity Enuresis Surgical History Surgery Date(Month/Year) No history wisdom tooth extracted 2013 Colonoscopy, Endoscopy at [facility] 2014-12-03 Hospitalization History Reason Date(Month/Year) No history
== END 2024-11-20 11:55 | disposition home or self-care (01) ==
LOC: HO.HUSH 10:52
PROVIDERS: PCP Internal Medicine Medical Oncology; Visit Provider Urology
DX: R35.0 Frequency of micturition (principal); K59.02 Outlet dysfunction constipation; N32.89 Other specified disorders of bladder; N28.1 Cyst of kidney, acquired; Z30.09 Encounter for other general counseling and advice on contraception
CPT/HCPCS: 99214; G2211

== ENCOUNTER → 2024-11-20 10:51 | Outpatient (BNVA) | payer MEDICARE, MEDICAID, SELFPAY | PROVIDERS: PCP Internal Medicine Medical Oncology; Visit Provider Urology | DX: R35.0 Frequency of micturition (principal); K59.02 Outlet dysfunction constipation; N32.89 Other specified disorders of bladder; N28.1 Cyst of kidney, acquired | CPT/HCPCS: 51798; 99212 ==